=== PATIENT | female | born 1945 | race Caucasian/White ===

== ENCOUNTER → 2016-10-25 | Outpatient (CLI) | payer OTHER ==
--- NOTE | 2016-10-25 11:37 | REPMRS ---
Patient History The patient states she had a clinical breast exam in 03/2016. Patient is postmenopausal and had first child at age 34. Family history of breast cancer in 2 maternal aunts at age 50 or over and endometrial cancer in maternal aunt at age 50 or over. Digital Woman Screen Mammo: October 25, 2016 - Exam #: [id number] Bilateral CC and MLO view(s) were taken. Technologist: Esther Harding Technologist Prior study comparison: May 01, 2014, bilateral bilat screen digital mammo, performed at [facility] ([facility]). April 30, 2013, bilateral bilat screen digital mammo, performed at [facility] ([facility]). FINDINGS: There are scattered fibroglandular densities. There has been no change in the appearance of the mammogram from the prior studies in 2013 and 2012. The minor tissue asymmetry in the UOQ right breast completely resolved from 05/02/15 outside mammo and subsequent ultrasound at [facility]. There is a mild amount of residual fibroglandular tissue which is fairly symmetric. There is no interval development of dominant mass, architectural distortion, or clustered microcalcification suggestive of malignancy. No significant changes when compared with prior studies. ASSESSMENT: BI-RADS/ACR category 1 mammogram. Negative. Recommendation Routine screening mammogram in 1 year (for women over age 40). This mammogram was interpreted with the aid of an FDA-approved computer-aided dectection system. A. Negative x-ray reports should not delay biopsy if a dominant or clinically suspicious mass is present. B. Four to eight percent of cancers are not identified by mammography. C. Adenosis and dense breast may obscure an underlying neoplasm. Electronically Signed By: Dajuan Keys MD 10/25/16 0356
== END ==
LOC: M WHC 10:35
PROVIDERS: ATTEND Internal Medicine
DX: Z12.31 Encounter for screening mammogram for malignant neoplasm of breast (principal); Z78.0 Asymptomatic menopausal state

== ENCOUNTER 2017-10-24 08:34 | Day surgery (SDC) | payer OTHER ==
[~2017-10-24 08:34] MED LIST: LIDOCAINE 2% INJ 100 MG/5 ML SDV (FOR ANES.) As Ordered; PROPOFOL 200 MG/20 ML VIAL As Ordered
[2017-10-24] MEDS ORDERED: NS 1,000 ML IV (08:45)
== END 2017-10-24 10:32 | disposition home or self-care (01) ==
LOC: M OPP 08:34
DX: Z12.11 Encounter for screening for malignant neoplasm of colon (principal); Z86.010 Personal history of colon polyps; D12.2 Benign neoplasm of ascending colon; K57.30 Diverticulosis of large intestine without perforation or abscess without bleeding; K64.0 First degree hemorrhoids; I10 Essential (primary) hypertension; E78.5 Hyperlipidemia, unspecified; E11.9 Type 2 diabetes mellitus without complications; E03.9 Hypothyroidism, unspecified; K57.32 Diverticulitis of large intestine without perforation or abscess without bleeding; M19.90 Unspecified osteoarthritis, unspecified site; Z78.0 Asymptomatic menopausal state; Z80.0 Family history of malignant neoplasm of digestive organs; Z79.82 Long term (current) use of aspirin; Z79.899 Other long term (current) drug therapy; Z79.84 Long term (current) use of oral hypoglycemic drugs; Z83.71 Family history of colonic polyps
CPT/HCPCS: 45385

== ENCOUNTER → 2017-12-26 | Outpatient (CLI) | payer OTHER | LOC: M WHC 12:44 | DX: M85.80 Other specified disorders of bone density and structure, unspecified site (principal) | CPT/HCPCS: 77067 ==

== ENCOUNTER → 2019-04-13 | Outpatient (CLI) | payer OTHER ==
[~2019-04-13] MED LIST changes: +ASPI81TA26 PO; +ATOR1TAB21 PO; +CALTTAB5 PO; +CENTTAB PO; +FISH100049 PO; +LEVO88TA3 PO; -LIDOCAINE 2% INJ 100 MG/5 ML SDV (FOR ANES.) As Ordered; +LISI10TA15 PO; +METF500T13 PO; -PROPOFOL 200 MG/20 ML VIAL As Ordered; +VITA100067 PO
--- NOTE | 2019-04-13 09:54 | REPMRS ---
Patient History The patient states she had a clinical breast exam in 04/2019. Patient is postmenopausal and had first child at age 34. Family history of breast cancer at age 50 or over in maternal aunt, breast cancer at age 50 or over in maternal aunt, endometrial cancer at age 50 or over in maternal aunt. No Hormone Replacement Therapy 3D TOMOSYNTHESIS WAS PERFORMED. The [facility] lifetime risk for breast cancer is 7.8%. Digital Woman Screen Mammo: April 13, 2019 - Exam #: [id number] Bilateral CC and MLO view(s) were taken. Technologist: Argenis Mckeon, Technologist Prior study comparison: December 26, 2017, digital woman screen mammo performed at [facility]. October 25, 2016, digital woman screen mammo performed at [facility] [employer] [facility] [employer] [facility]. FINDINGS: There are scattered fibroglandular densities. There has been no change in the appearance of the mammogram from the prior studies. There is a mild amount of residual fibroglandular tissue which is fairly symmetric. There is no interval development of dominant mass, architectural distortion, or clustered microcalcification suggestive of malignancy. Assessment: BI-RADS/ACR category 1 mammogram. Negative Mammogram. Recommendation Routine screening mammogram in 1 year (for women over age 40). This mammogram was interpreted with the aid of an FDA-approved computer-aided dectection system. Electronically Signed By: Hammad Hook MD 04/13/19 0953
== END ==
LOC: M WHC 08:54
PROVIDERS: ATTEND Internal Medicine
DX: Z12.31 Encounter for screening mammogram for malignant neoplasm of breast (principal)

== ENCOUNTER → 2020-04-18 | Outpatient (CLI) | payer OTHER ==
--- NOTE | 2020-05-06 08:30 | REPMRS ---
Patient History The patient states she has not had a clinical breast exam in over a year. Patient is postmenopausal and had first child at age 34. Family history of breast cancer at age 50 or over in maternal aunt, breast cancer at age 50 or over in maternal aunt, endometrial cancer at age 50 or over in maternal aunt. No Hormone Replacement Therapy Digital Woman Screen Mammo: April 18, 2020 - Exam #: [id number] Bilateral CC and MLO view(s) were taken. Technologist: Jennifer Beck, Technologist Prior study comparison: April 13, 2019, [facility] December 26, 2017, digital woman screen mammo[facility]. October 25, 2016, digital woman screen mammo, performed at [facility]. FINDINGS: There are scattered fibroglandular densities. The Vol[employer] volumetric breast density category is:B. There has been no change in the appearance of the mammogram from the prior studies. There is a mild amount of scattered fibroglandular density which is fairly symmetric. There is no interval development of dominant mass, architectural distortion, or grouped microcalcification suggestive of malignancy. 3-D tomosynthesis shows no additional findings. Assessment: BI-RADS/ACR category 1 mammogram. Negative Mammogram. Recommendation Routine screening mammogram of both breasts in 1 year (for women over age 40). This patient's Lifetime Breast Cancer Risk is estimated at 7.3 %. This mammogram was interpreted with the aid of an FDA-approved computer-aided dectection system. Electronically Signed By: Kelechi Hawk MD 05/06/20 0829
--- NOTE | 2020-05-27 15:40 | DEXA ---
AP SPINE L1 - L4 1.065 -1.0 0.8 LT FEMUR TOTAL 0.857 -1.2 0.5 LT NECK 0.831 -1.5 0.4 RT FEMUR TOTAL 0.847 -1.3 0.4 RT NECK 0.861 -1.3 0.6 TOTAL BODY TOTAL OTHER COMMENTS: There is low bone density of the spine and hips. The decreased density of the spine does represent significant change. The decreased density of the left hip does not represent significant change. The decreased density of the right hip does represent a significant change. The density of the spine has decreased 1.8% since the initial exam on 05/03/2001. The decreased 3.5% since most recent exam on 12/26/2017. The density of the left hip has decreased 9.6% since the initial exam on 05/03/2001. The density of the left hip has decreased 1.0% since the most recent exam on 12/26/2017. The density of the right hip has decreased 14% since the initial exam on 05/03/2001. The density of the right hip has decreased 2.8% since most recent exam on 12/26/2017. FOLLOW-UP: Recommendation for the next bone density exam: 2 years. ANJELICA
== END ==
LOC: M WHC 13:17
PROVIDERS: ATTEND Internal Medicine
DX: Z12.31 Encounter for screening mammogram for malignant neoplasm of breast (principal); Z78.0 Asymptomatic menopausal state; M85.851 Other specified disorders of bone density and structure, right thigh; M85.852 Other specified disorders of bone density and structure, left thigh; M85.88 Other specified disorders of bone density and structure, other site

== ENCOUNTER → 2021-05-22 | Outpatient (CLI) | payer MEDICARE, OTHER ==
[~2021-05-22] MED LIST changes: -LISI10TA15 PO; +LISI10TA24 PO; +METF-838 PO
== END ==
LOC: M WHC 07:45
PROVIDERS: ATTEND Internal Medicine
DX: Z12.31 Encounter for screening mammogram for malignant neoplasm of breast (principal); Z80.3 Family history of malignant neoplasm of breast

== ENCOUNTER → 2021-06-19 | Outpatient (CLI) | payer MEDICARE, OTHER ==
[~2021-06-19] MED LIST changes: +LISI10TA15 PO; -LISI10TA24 PO
== END ==
LOC: M LABSMTC 10:57
PROVIDERS: ATTEND Anesthesiology
DX: Z01.812 Encounter for preprocedural laboratory examination (principal); Z20.822 Contact with and (suspected) exposure to COVID-19

== ENCOUNTER 2021-06-24 11:34 | Day surgery (SDC) | payer MEDICARE, OTHER ==
[~2021-06-24] VITALS: Ht 167.6 cm; Wt 61.2 kg
[~2021-06-24 11:34] MED LIST changes: +NS 1,000 ML IV ONE
--- OUTSIDE RECORDS SUMMARY | 2021-06-24 11:44 | CCD | Continuity of Care Document ---
Author Melonie Galaviz [facility] Organization Unknown Address [address] [place] [address] Phone [phone] Care Team Providers Care Elementary Art Teacher Name Role Phone Mary Salas MD [facility] [phone] Problems Active Problems Provider Date Type 2 diabetes mellitus AJ Gonsales Onset: 12/11/19 21 Essential hypertension AJ Gonsales Onset: 12/10/2020 Pure hypercholesterolemia AJ Gonsales Onset: 021 Social History Type Date Description Comments Sex Unknown ETOH Use Denies alcohol use Tobacco Use Start: Unknown Denies Smoking Allergies, Adverse Reactions, Alerts Description No Known Drug Allergies Medications Active Medications SIG Qnty Indications Ordering Provide r Date Mobic 15mg Tablets 1 by mouth after meals every day 60tabs M75.41 DMarley Wilburn MD 021 Cephalexin 500mg Capsules Take One Capsule By Mouth Four Times A Day Unknown Metformin HCL 500mg Tablets Unknown Caltrate 600+D3 [id number] Tab lets 1 by mouth twice a day Unknown Centrum Adults Tablets Unknown D3-1000 25mcg (1000 Ut) Capsules 1 by mouth every day Unknown Fish Oil 1000mg Capsules DR Unknown Atorvastatin Calcium 40mg Tablets Unknown Immunizations Description No Information Available Vital Signs Date Vital Result Comment 12/10/2020 2:55pm Body Temperature 97.3 F Height 66 inches 5'6" Weight 136.00 lb BMI (Body Mass Index) 21.9 kg/m2 Results Description No Information Available Procedures Date Code Description Status 05/07/2021 13941 Therapeutic Procedure, Each 15 M inutes Completed 05/05/2021 58479 Therapeutic Procedure, Each 15 M inutes Completed 04/30/2021 83549 Therapeutic Procedure, Each 15 M inutes Completed 04/28/2021 23879 Therapeutic Procedure, Each 15 M inutes Completed 04/23/2021 68184 Therapeutic Procedure, Each 15 M inutes Completed 04/20/2021 25221 Therapeutic Procedure, Each 15 M inutes Completed 04/17/2021 63026 Therapeutic Procedure, Each 15 M inutes Completed 04/13/2021 80303 Therapeutic Procedure, Each 15 M inutes Completed 04/10/2021 09147 Therapeutic Procedure, Each 15 M inutes Completed 04/06/2021 31922 Therapeutic Procedure, Each 15 M inutes Completed 04/01/2021 35343 Therapeutic Procedure, Each 15 M inutes Completed 03/30/2021 01936 Therapeutic Procedure, Each 15 M inutes Completed 03/25/2021 68368 Therapeutic Procedure, Each 15 M inutes Completed 03/23/2021 32146 Therapeutic Procedure, Each 15 M inutes Completed 03/18/2021 47604 Therapeutic Procedure, Each 15 M inutes Completed 03/16/2021 26478 Therapeutic Procedure, Each 15 M inutes Completed 02/25/2021 16902 Office/Outpatient Established Lo w MDM 20-29 Min Completed 02/25/2021 27686 Therapeutic Procedure, Each 15 M inutes Completed 02/25/2021 13554 Therapeutic Procedure, Each 15 M inutes Completed 02/18/2021 75778 Therapeutic Procedure, Each 15 M inutes Completed 02/18/2021 07001 Therapeutic Procedure, Each 15 M inutes Completed 02/11/2021 05281 Therapeutic Procedure, Each 15 M inutes Completed 02/11/2021 69757 Therapeutic Procedure, Each 15 M inutes Completed 02/06/2021 09849 Therapeutic Procedure, Each 15 M inutes Completed 02/06/2021 22406 Hot Or Cold Packs Completed 01/30/2021 15715 Therapeutic Procedure, Each 15 M inutes Completed 01/30/2021 54368 Therapeutic Procedure, Each 15 M inutes Completed 01/28/2021 75538 Therapeutic Procedure, Each 15 M inutes Completed 01/28/2021 31177 Therapeutic Procedure, Each 15 M inutes Completed 01/26/2021 27872 Office/Outpatient Established Lo w MDM 20-29 Min Completed 01/23/2021 41872 Therapeutic Procedure, Each 15 M inutes Completed 01/23/2021 05000 Therapeutic Procedure, Each 15 M inutes Completed 01/20/2021 50776 Therapeutic Procedure, Each 15 M inutes Completed 01/20/2021 27874 Therapeutic Procedure, Each 15 M inutes Completed 01/14/2021 17782 Therapeutic Procedure, Each 15 M inutes Completed 01/14/2021 13434 Therapeutic Procedure, Each 15 M inutes Completed 01/09/2021 71428 Therapeutic Procedure, Each 15 M inutes Completed 01/09/2021 60879 Therapeutic Procedure, Each 15 M inutes Completed 01/07/2021 85406 Therapeutic Procedure, Each 15 M inutes Completed 01/07/2021 56974 Therapeutic Procedure, Each 15 M inutes Completed 01/02/2021 33075 Physical Therapy Eval - Low Comp lexity Completed 12/10/2020 23660 Office/Outpatient New Low MDM 30 -44 Minutes Completed 12/10/2020 87446 X-Ray Humerus Two Views Complete d Medical Devices Description No Information Available Encounters Type Date Location Provider Dx Diagnosis Office Visit 02/25/2021 3:30p [place] M75.41 Impingement syndrome of right shoulder Office Visit 01/26/2021 3:30p JA Dickson M75.41 Impingement syndrome of right shoulder Office Visit 12/10/2020 2:30p [place] M75.41 Impingement syndrome of right shoulder Assessments Date Code Description Provider 05/07/2021 M75.41 Impingement syndrome of right sh ireneer Chelle Ritchie, CHUCK BONER 05/05/2021 M75.41 Impingement syndrome of right sh lali Martinsbrian Ritchie, CHUCK BONER 04/30/2021 M75.41 Impingement syndrome of right sh lali Martinsbrian Ritchie, CHUCK BONER 04/28/2021 M75.41 Impingement syndrome of right sh lali Martinsbrian Ritchie, CHUCK BONER 04/23/2021 M75.41 Impingement syndrome of right sh ireneer Chelle Martinsbrian Ritchie, CHUCK BONER 04/20/2021 M75.41 Impingement syndrome of right sh billlder Chelle Ritchie, CHUCK BONER 04/17/2021 M75.41 Impingement syndrome of right sh ireneer Davida Barrios, MSPT 04/13/2021 M75.41 Impingement syndrome of right sh billlder Chelle Ritchie, CHUCK BONER 04/10/2021 M75.41 Impingement syndrome of right sh billlder Davida Barrios, MSPT 04/06/2021 M75.41 Impingement syndrome of right sh billlder Chelle Ritchie, CHUCK BONER 04/01/2021 M75.41 Impingement syndrome of right sh billlder Alfonzo Raolouisenena, CHUCK BONER 03/30/2021 M75.41 Impingement syndrome of right sh billlder Chelle Ritchie, CHUCK BONER 03/25/2021 M75.41 Impingement syndrome of right sh ould Danae Scee P.T.A. 03/23/2021 M75.41 Impingement syndrome of right sh ould Danae Scee P.T.A. 03/18/2021 M75.41 Impingement syndrome of right sh [facility] Danae Scee P.T.A. 03/16/2021 M75.41 Impingement syndrome of right sh irene Davida Barrios, MSPT 02/25/2021 M75.41 Impingement syndrome of right sh biller Davida Barrios, MSPT 02/25/2021 M75.41 Impingement syndrome of right sh [facility] Nilesh Contreras, PA 02/18/2021 M75.41 Impingement syndrome of right sh billlder Chelle Ritchie, CHUCK BONER 02/11/2021 M75.41 Impingement syndrome of right sh lali Barrios, MSPT 02/06/2021 M75.41 Impingement syndrome of right sh lali Sullivanaj, MSPT 01/30/2021 M75.41 Impingement syndrome of right sh lali Ritchie, CHUCK BONER 01/28/2021 M75.41 Impingement syndrome of right sh lali Barrios, MSPT 01/26/2021 M75.41 Impingement syndrome of right sh billlder Nilesh CadeMarley Contreras PA 01/23/2021 M75.41 Impingement syndrome of right sh oulder Charyrie Ortolano, CHUCK BONER 01/20/2021 M75.41 Impingement syndrome of right sh oulder Danamarie Ortolano, CHUCK BONER 01/14/2021 M75.41 Impingement syndrome of right sh oulder Danamarie Ortolano, CHUCK BONER 01/09/2021 M75.41 Impingement syndrome of right sh oulder Danamarie Ortolano, CHUCK BONER 01/07/2021 M75.41 Impingement syndrome of right sh billlder Chelle Ritchie, CHUCK BONER 01/02/2021 M75.41 Impingement syndrome of right sh billlder Davida Barrios, MSPT 12/10/2020 M75.41 Impingement syndrome of right sh lali AJ Gonsales Plan of Treatment Future Appointment(s):* 05/13/2021 9:30 am - Danae Sesay P.T.A. at Physical Therapy * 05/15/2021 9:00 am - EDGAR Clayton at Physical Therapy Functional Status Description No Information Available Mental Status Description No Information Available Referrals Refer to Dr Reason for Referral Status Appt Date Andrae Wilburn MD PT ALLOWED EVAL THEN NEEDS A MEH (([phone]) TO PT DEPT. NT Closed [address] [place] [phone] [phone] Andrae Wilburn MD PT PER DELVIN AT [facility] APPROVAL F OR 12 VISITS ON RT SHOULDER TO PT DEPT. NT Created [address] [place] [address] [phone] Andrae Wilburn MD PT BASED ON MED. [facility] TO PT DEPT. NT C reated [address] [place] [address], [address] [address] [phone]
--- OUTSIDE RECORDS SUMMARY | 2021-06-24 11:44 | CCD | Continuity of Care Document ---
Author Melonie Galaviz [facility] Organization Unknown Address [address] [place] [address] Phone [phone] Care Team Providers Care Vascular Specialists Name Role Phone Mary Salas MD [facility] [phone] Problems Active Problems Provider Date Type 2 [...] Metformin HCL 500mg Tablets Unknown Caltrate 600+D3 [id number] Tab lets 1 by mouth twice a [...] Available Procedures Date Code Description Status 05/07/2021 05089 Therapeutic Procedure, Each 15 M inutes Completed 05/05/2021 18685 Therapeutic Procedure, Each 15 M inutes Completed 04/30/2021 40182 Therapeutic Procedure, Each 15 M inutes Completed 04/28/2021 17404 Therapeutic Procedure, Each 15 M inutes Completed 04/23/2021 92607 Therapeutic Procedure, Each 15 M inutes Completed 04/20/2021 41223 Therapeutic Procedure, Each 15 M inutes Completed 04/17/2021 37513 Therapeutic Procedure, Each 15 M inutes Completed 04/13/2021 71295 Therapeutic Procedure, Each 15 M inutes Completed 04/10/2021 62888 Therapeutic Procedure, Each 15 M inutes Completed 04/06/2021 13201 Therapeutic Procedure, Each 15 M inutes Completed 04/01/2021 54834 Therapeutic Procedure, Each 15 M inutes Completed 03/30/2021 23616 Therapeutic Procedure, Each 15 M inutes Completed 03/25/2021 11433 Therapeutic Procedure, Each 15 M inutes Completed 03/23/2021 41939 Therapeutic Procedure, Each 15 M inutes Completed 03/18/2021 86116 Therapeutic Procedure, Each 15 M inutes Completed 03/16/2021 55560 Therapeutic Procedure, Each 15 M inutes Completed 02/25/2021 33853 Office/Outpatient Established Lo w MDM 20-29 Min Completed 02/25/2021 97907 Therapeutic Procedure, Each 15 M inutes Completed 02/25/2021 48920 Therapeutic Procedure, Each 15 M inutes Completed 02/18/2021 47550 Therapeutic Procedure, Each 15 M inutes Completed 02/18/2021 74250 Therapeutic Procedure, Each 15 M inutes Completed 02/11/2021 44402 Therapeutic Procedure, Each 15 M inutes Completed 02/11/2021 65430 Therapeutic Procedure, Each 15 M inutes Completed 02/06/2021 68082 Therapeutic Procedure, Each 15 M inutes Completed 02/06/2021 64183 Hot Or Cold Packs Completed 01/30/2021 96124 Therapeutic Procedure, Each 15 M inutes Completed 01/30/2021 17532 Therapeutic Procedure, Each 15 M inutes Completed 01/28/2021 81996 Therapeutic Procedure, Each 15 M inutes Completed 01/28/2021 12635 Therapeutic Procedure, Each 15 M inutes Completed 01/26/2021 23803 Office/Outpatient Established Lo w MDM 20-29 Min Completed 01/23/2021 96594 Therapeutic Procedure, Each 15 M inutes Completed 01/23/2021 32496 Therapeutic Procedure, Each 15 M inutes Completed 01/20/2021 32381 Therapeutic Procedure, Each 15 M inutes Completed 01/20/2021 16644 Therapeutic Procedure, Each 15 M inutes Completed 01/14/2021 30921 Therapeutic Procedure, Each 15 M inutes Completed 01/14/2021 56777 Therapeutic Procedure, Each 15 M inutes Completed 01/09/2021 47634 Therapeutic Procedure, Each 15 M inutes Completed 01/09/2021 32739 Therapeutic Procedure, Each 15 M inutes Completed 01/07/2021 89126 Therapeutic Procedure, Each 15 M inutes Completed 01/07/2021 18369 Therapeutic Procedure, Each 15 M inutes Completed 01/02/2021 22751 Physical Therapy Eval - Low Comp lexity Completed 12/10/2020 48257 Office/Outpatient New Low MDM 30 -44 Minutes Completed 12/10/2020 20828 X-Ray Humerus Two Views Complete d Medical Devices Description No Information Available Encounters Type Date Location Provider Dx Diagnosis Office Visit 02/25/2021 3:30p [place] M75.41 Impingement syndrome of right shoulder Office Visit 01/26/2021 3:30p AJ Dickson M75.41 Impingement syndrome of right shoulder Office Visit 12/10/2020 2:30p [place] M75.41 Impingement syndrome of right shoulder Assessments Date Code Description Provider 05/07/2021 M75.41 Impingement syndrome of right sh ireneer Chelle Ritchie, [employer] 05/05/2021 M75.41 Impingement syndrome of right sh lali Martinsbrian Ritchie, [employer] 04/30/2021 M75.41 Impingement syndrome of right sh lali Martinsbrian Ritchie, [employer]OL 04/28/2021 M75.41 Impingement syndrome of right sh lali Martinsbrian Ritchie, [employer]OL 04/23/2021 M75.41 Impingement syndrome of right sh ireneer Chelle Martinsbrian Ritchie, [employer]OL 04/20/2021 M75.41 Impingement syndrome of right sh billlder Chelle Ritchie, [employer]OL 04/17/2021 M75.41 Impingement syndrome of right sh ireneer Davida Barrios, MSPT 04/13/2021 M75.41 Impingement syndrome of right sh billlder Chelle Ritchie, [employer]OL 04/10/2021 M75.41 Impingement syndrome of right sh billlder Davida Barrios, MSPT 04/06/2021 M75.41 Impingement syndrome of right sh billlder Chelle Ritchie, [employer] 04/01/2021 M75.41 Impingement syndrome of right sh billlder Alfonzo Raolouisenena, [employer] 03/30/2021 M75.41 Impingement syndrome of right sh billlder Chelle Ritchie, [employer]OL 03/25/2021 M75.41 Impingement syndrome of right sh ould Danae Scee P.T.A. 03/23/2021 M75.41 Impingement syndrome of right sh ould Danae Scee P.T.A. 03/18/2021 M75.41 Impingement syndrome of right sh [facility] Danae Scee P.T.A. 03/16/2021 M75.41 Impingement syndrome of right sh irene Davida Barrios, MSPT 02/25/2021 M75.41 Impingement syndrome of right sh biller Davida Barrios, MSPT 02/25/2021 M75.41 Impingement syndrome of right sh [facility] Nilesh Contreras, PA 02/18/2021 M75.41 Impingement syndrome of right sh billlder Chelle Ritchie, [employer]OL 02/11/2021 M75.41 Impingement syndrome of right sh lali Barrios, MSPT 02/06/2021 M75.41 Impingement syndrome of right sh lali Sullivanaj, MSPT 01/30/2021 M75.41 Impingement syndrome of right sh lali Ritchie, [employer]OL 01/28/2021 M75.41 Impingement syndrome of right sh lali Barrios, MSPT 01/26/2021 M75.41 Impingement syndrome of right sh billlder Nilesh CadeMarley Contreras PA 01/23/2021 M75.41 Impingement syndrome of right sh oulder Charyrie Ortolano, [employer]OL 01/20/2021 M75.41 Impingement syndrome of right sh oulder Danamarie Ortolano, [employer]OL 01/14/2021 M75.41 Impingement syndrome of right sh oulder Danamarie Ortolano, [employer]ER TOOL 01/09/2021 M75.41 Impingement syndrome of right sh oulder Danamarie Ortolano, [employer]ER TOOL 01/07/2021 M75.41 Impingement syndrome of right sh billlder Chelle Ritchie, [employer] TOOL 01/02/2021 M75.41 Impingement syndrome of right sh [...] MD PT ALLOWED EVAL THEN NEEDS A GAH (([phone]) TO PT DEPT. NT Closed [address] [place] [phone] Andrae Wilburn MD PT PER DELVIN AT [facility] APPROVAL F OR 12 VISITS ON RT SHOULDER TO PT DEPT. NT Created [address] [place] [phone] Andrae Wilburn MD PT BASED ON MED. [facility] TO PT DEPT. NT C reated [address] [place] [address], [address] [address] [phone]
--- OUTSIDE RECORDS SUMMARY | 2021-06-24 11:44 | CCD | Continuity of Care Document ---
Author Melonie Galaviz [facility] Organization Unknown Address [address] [place] [phone] Phone [phone] Care Team Providers Care Flexible Babysitter Name Role Phone Mary Salas MD [facility] [phone] Problems Active Problems Provider Date Type 2 diabetes mellitus ISMA Gonsales Onset: 12/11/19 21 Essential hypertension ISMA Gonsales Onset: 12/10/2020 Pure hypercholesterolemia ISMA Gonsales Onset: 021 Social History Type Date [...] Metformin HCL 500mg Tablets Unknown Caltrate 600+D3 [id number] Tab lets 1 by mouth twice a [...] Information Available Procedures Date Code Description Status 04/28/2021 43429 Therapeutic Procedure, Each 15 M inutes Completed 04/23/2021 39412 Therapeutic Procedure, Each 15 M inutes Completed 04/20/2021 78664 Therapeutic Procedure, Each 15 M inutes Completed 04/17/2021 28073 Therapeutic Procedure, Each 15 M inutes Completed 04/13/2021 27405 Therapeutic Procedure, Each 15 M inutes Completed 04/10/2021 45422 Therapeutic Procedure, Each 15 M inutes Completed 04/06/2021 97233 Therapeutic Procedure, Each 15 M inutes Completed 04/01/2021 76383 Therapeutic Procedure, Each 15 M inutes Completed 03/30/2021 13049 Therapeutic Procedure, Each 15 M inutes Completed 03/25/2021 61839 Therapeutic Procedure, Each 15 M inutes Completed 03/23/2021 29225 Therapeutic Procedure, Each 15 M inutes Completed 03/18/2021 89734 Therapeutic Procedure, Each 15 M inutes Completed 03/16/2021 76711 Therapeutic Procedure, Each 15 M inutes Completed 02/25/2021 99066 Office/Outpatient Established Lo w MDM 20-29 Min Completed 02/25/2021 87955 Therapeutic Procedure, Each 15 M inutes Completed 02/25/2021 61880 Therapeutic Procedure, Each 15 M inutes Completed 02/18/2021 48515 Therapeutic Procedure, Each 15 M inutes Completed 02/18/2021 93552 Therapeutic Procedure, Each 15 M inutes Completed 02/11/2021 94299 Therapeutic Procedure, Each 15 M inutes Completed 02/11/2021 19310 Therapeutic Procedure, Each 15 M inutes Completed 02/06/2021 92907 Therapeutic Procedure, Each 15 M inutes Completed 02/06/2021 85395 Hot Or Cold Packs Completed 01/30/2021 62900 Therapeutic Procedure, Each 15 M inutes Completed 01/30/2021 40916 Therapeutic Procedure, Each 15 M inutes Completed 01/28/2021 92135 Therapeutic Procedure, Each 15 M inutes Completed 01/28/2021 15211 Therapeutic Procedure, Each 15 M inutes Completed 01/26/2021 29813 Office/Outpatient Established Lo w MDM 20-29 Min Completed 01/23/2021 77527 Therapeutic Procedure, Each 15 M inutes Completed 01/23/2021 68418 Therapeutic Procedure, Each 15 M inutes Completed 01/20/2021 56538 Therapeutic Procedure, Each 15 M inutes Completed 01/20/2021 66196 Therapeutic Procedure, Each 15 M inutes Completed 01/14/2021 74144 Therapeutic Procedure, Each 15 M inutes Completed 01/14/2021 47288 Therapeutic Procedure, Each 15 M inutes Completed 01/09/2021 28068 Therapeutic Procedure, Each 15 M inutes Completed 01/09/2021 26951 Therapeutic Procedure, Each 15 M inutes Completed 01/07/2021 17981 Therapeutic Procedure, Each 15 M inutes Completed 01/07/2021 19302 Therapeutic Procedure, Each 15 M inutes Completed 01/02/2021 42147 Physical Therapy Eval - Low Comp lexity Completed 12/10/2020 46411 Office/Outpatient New Low MDM 30 -44 Minutes Completed 12/10/2020 41487 X-Ray Humerus Two Views Complete d Medical Devices Description No Information Available Encounters Type Date Location Provider Dx Diagnosis Office Visit 02/25/2021 3[facility] M75.41 Impingement syndrome of right shoulder Office Visit 01/26/2021 3:30p ISMA Dickson M75.41 Impingement syndrome of right shoulder Office Visit 12/10/2020 2:30p ISMA Dickson M75.41 Impingement syndrome of right shoulder Assessments Date Code Description Provider 04/28/2021 M75.41 Impingement syndrome of right sh lali Martinsbrian Ritchie, MEDICAL LAB TECHNOLOGIST 04/23/2021 M75.41 Impingement syndrome of right sh lali Martinsbrian Ritchie, MEDICAL LAB TECHNOLOGIST 04/20/2021 M75.41 Impingement syndrome of right sh lali Martinsbrian Ritchie, MEDICAL LAB TECHNOLOGIST 04/17/2021 M75.41 Impingement syndrome of right sh billdianne Davida Barrios, MSPT 04/13/2021 M75.41 Impingement syndrome of right sh lali Martinsbrian Ritchie, MEDICAL LAB TECHNOLOGIST 04/10/2021 M75.41 Impingement syndrome of right sh lali Davida Barrios, MSPT 04/06/2021 M75.41 Impingement syndrome of right sh lali Martinsbrian Ritchie, MEDICAL LAB TECHNOLOGIST 04/01/2021 M75.41 Impingement syndrome of right sh billlder Charyrie Ortolano, MEDICAL LAB TECHNOLOGIST 03/30/2021 M75.41 Impingement syndrome of right sh ireneer Chelle Ritchie, MEDICAL LAB TECHNOLOGIST 03/25/2021 M75.41 Impingement syndrome of right sh oulder Danae Scee P.T.A. 03/23/2021 M75.41 Impingement syndrome of right sh oulder Danae Scee P.T.A. 03/18/2021 M75.41 Impingement syndrome of right sh oulder Danae Scee P.T.A. 03/16/2021 M75.41 Impingement syndrome of right sh ireneer Davida Barrios, MSPT 02/25/2021 M75.41 Impingement syndrome of right sh ireneer Davida Barrios, MSPT 02/25/2021 M75.41 Impingement syndrome of right sh billlder Nilesh Contreras, PA 02/18/2021 M75.41 Impingement syndrome of right sh ireneer Chelle Ritchie, MEDICAL LAB TECHNOLOGIST 02/11/2021 M75.41 Impingement syndrome of right sh lali Barrios, MSPT 02/06/2021 M75.41 Impingement syndrome of right sh lali Barrios, MSPT 01/30/2021 M75.41 Impingement syndrome of right sh lali Ritchie, MEDICAL LAB TECHNOLOGIST 01/28/2021 M75.41 Impingement syndrome of right sh lali Barrios, MSPT 01/26/2021 M75.41 Impingement syndrome of right sh oulder Nilesh Contreras, PA 01/23/2021 M75.41 Impingement syndrome of right sh oulder Danamarie Ortolano, MEDICAL LAB TECHNOLOGIST 01/20/2021 M75.41 Impingement syndrome of right sh oulder Danamarie Ortolano, MEDICAL LAB TECHNOLOGIST 01/14/2021 M75.41 Impingement syndrome of right sh oulder Danamarie Ortolano, MEDICAL LAB TECHNOLOGIST 01/09/2021 M75.41 Impingement syndrome of right sh oulder Danamarie Ortolano, MEDICAL LAB TECHNOLOGIST 01/07/2021 M75.41 Impingement syndrome of right sh ireneer Chelle Ritchie, MEDICAL LAB TECHNOLOGIST 01/02/2021 M75.41 Impingement syndrome of right sh ireneer Davida Barrios, MSPT 12/10/2020 M75.41 Impingement syndrome of right sh billmarlener ISMA Gonsales Plan of Treatment Future Appointment(s):* 05/07/2021 9:30 am - Chelle Ritchie, MEDICAL LAB TECHNOLOGIST at Physical Therapy * 05/05/2021 9:30 am - Chelle Ritchie, MEDICAL LAB TECHNOLOGIST at Physical Therapy Functional Status Description No Information Available Mental Status Description No Information Available Referrals Refer to Dr Reason for Referral Status Appt Date Andrae Wilburn MD PT ALLOWED EVAL THEN NEEDS A [facility] (([phone]) TO PT DEPT. NT Closed [address] [place] [phone] Andrae Wilburn MD PT PER DELVIN AT [facility] APPROVAL F OR 12 VISITS ON RT SHOULDER TO PT DEPT. NT Created [address] [place] [phone] Andrae Wilburn MD PT BASED ON MED. [facility] TO PT DEPT. NT C reated [address] [place] [phone]
--- OUTSIDE RECORDS SUMMARY | 2021-06-24 11:44 | CCD | Continuity of Care Document ---
Author Melonie Galaviz [facility] Organization Unknown Address [address] [place] [phone] Phone [phone] Care Team Providers Care Movable Bulkhead Installer Name Role Phone Mary Salas MD [facility] [phone] Problems Active Problems Provider Date Type 2 [...] Metformin HCL 500mg Tablets Unknown Caltrate 600+D3 [id number] Tab lets 1 by mouth twice a [...] Information Available Procedures Date Code Description Status 05/05/2021 11385 Therapeutic Procedure, Each 15 M inutes Completed 04/30/2021 52882 Therapeutic Procedure, Each 15 M inutes Completed 04/28/2021 90770 Therapeutic Procedure, Each 15 M inutes Completed 04/23/2021 79638 Therapeutic Procedure, Each 15 M inutes Completed 04/20/2021 96519 Therapeutic Procedure, Each 15 M inutes Completed 04/17/2021 62718 Therapeutic Procedure, Each 15 M inutes Completed 04/13/2021 19570 Therapeutic Procedure, Each 15 M inutes Completed 04/10/2021 06922 Therapeutic Procedure, Each 15 M inutes Completed 04/06/2021 43947 Therapeutic Procedure, Each 15 M inutes Completed 04/01/2021 47861 Therapeutic Procedure, Each 15 M inutes Completed 03/30/2021 36949 Therapeutic Procedure, Each 15 M inutes Completed 03/25/2021 73589 Therapeutic Procedure, Each 15 M inutes Completed 03/23/2021 61431 Therapeutic Procedure, Each 15 M inutes Completed 03/18/2021 50732 Therapeutic Procedure, Each 15 M inutes Completed 03/16/2021 01300 Therapeutic Procedure, Each 15 M inutes Completed 02/25/2021 89970 Office/Outpatient Established Lo w MDM 20-29 Min Completed 02/25/2021 09158 Therapeutic Procedure, Each 15 M inutes Completed 02/25/2021 98398 Therapeutic Procedure, Each 15 M inutes Completed 02/18/2021 42257 Therapeutic Procedure, Each 15 M inutes Completed 02/18/2021 51867 Therapeutic Procedure, Each 15 M inutes Completed 02/11/2021 83245 Therapeutic Procedure, Each 15 M inutes Completed 02/11/2021 27479 Therapeutic Procedure, Each 15 M inutes Completed 02/06/2021 59806 Therapeutic Procedure, Each 15 M inutes Completed 02/06/2021 58503 Hot Or Cold Packs Completed 01/30/2021 32042 Therapeutic Procedure, Each 15 M inutes Completed 01/30/2021 82544 Therapeutic Procedure, Each 15 M inutes Completed 01/28/2021 15396 Therapeutic Procedure, Each 15 M inutes Completed 01/28/2021 03900 Therapeutic Procedure, Each 15 M inutes Completed 01/26/2021 65958 Office/Outpatient Established Lo w MDM 20-29 Min Completed 01/23/2021 86204 Therapeutic Procedure, Each 15 M inutes Completed 01/23/2021 12523 Therapeutic Procedure, Each 15 M inutes Completed 01/20/2021 91179 Therapeutic Procedure, Each 15 M inutes Completed 01/20/2021 31021 Therapeutic Procedure, Each 15 M inutes Completed 01/14/2021 52879 Therapeutic Procedure, Each 15 M inutes Completed 01/14/2021 61558 Therapeutic Procedure, Each 15 M inutes Completed 01/09/2021 96753 Therapeutic Procedure, Each 15 M inutes Completed 01/09/2021 23769 Therapeutic Procedure, Each 15 M inutes Completed 01/07/2021 88901 Therapeutic Procedure, Each 15 M inutes Completed 01/07/2021 99781 Therapeutic Procedure, Each 15 M inutes Completed 01/02/2021 26715 Physical Therapy Eval - Low Comp lexity Completed 12/10/2020 92916 Office/Outpatient [facility] 30 -44 Minutes Completed 12/10/2020 96568 X-Ray Humerus Two Views Complete d Medical Devices Description No Information Available Encounters Type Date Location Provider Dx Diagnosis Office Visit 02/25/2021 3[place] M75.41 Impingement syndrome of right shoulder Office Visit 01/26/2021 3:30p ISMA Dickson M75.41 Impingement syndrome of right shoulder Office Visit 12/10/2020 2:30p ISMA Dickson M75.41 Impingement syndrome of right shoulder Assessments Date Code Description Provider 05/05/2021 M75.41 Impingement syndrome of right sh lali Martinsbrian Ritchie, SOCIAL WORK ASSISTANT 04/30/2021 M75.41 Impingement syndrome of right sh lali Martinsbrian Ritchie, SOCIAL WORK ASSISTANT 04/28/2021 M75.41 Impingement syndrome of right sh lali Martinsbrian Ritchie, SOCIAL WORK ASSISTANT 04/23/2021 M75.41 Impingement syndrome of right sh lali Martinsbrian Ritchie, SOCIAL WORK ASSISTANT 04/20/2021 M75.41 Impingement syndrome of right sh lali Martinsbrian Ritchie, SOCIAL WORK ASSISTANT 04/17/2021 M75.41 Impingement syndrome of right sh billdianne Davida Barrios, MSPT 04/13/2021 M75.41 Impingement syndrome of right sh billlder Chelle Ritchie, SOCIAL WORK ASSISTANT 04/10/2021 M75.41 Impingement syndrome of right sh lali Barrios, MSPT 04/06/2021 M75.41 Impingement syndrome of right sh lali Ritchie, SOCIAL WORK ASSISTANT 04/01/2021 M75.41 Impingement syndrome of right sh billlder Alfonzo Arellano, SOCIAL WORK ASSISTANT 03/30/2021 M75.41 Impingement syndrome of right sh billldhayes Ritchie, SOCIAL WORK ASSISTANT 03/25/2021 M75.41 Impingement syndrome of right sh billlder Danae Scee P.T.A. 03/23/2021 M75.41 Impingement syndrome of right sh oulder Danae Scee P.T.A. 03/18/2021 M75.41 Impingement syndrome of right sh billlder Danae Scee P.T.A. 03/16/2021 M75.41 Impingement syndrome of right sh lali Barrios, MSPT 02/25/2021 M75.41 Impingement syndrome of right sh lali Barrios, MSPT 02/25/2021 M75.41 Impingement syndrome of right sh billlder Nilesh Contreras, PA 02/18/2021 M75.41 Impingement syndrome of right sh lali Ritchie, SOCIAL WORK ASSISTANT 02/11/2021 M75.41 Impingement syndrome of right sh lali Barrios, MSPT 02/06/2021 M75.41 Impingement syndrome of right sh lali Barrios, MSPT 01/30/2021 M75.41 Impingement syndrome of right sh lali Ritchie, SOCIAL WORK ASSISTANT 01/28/2021 M75.41 Impingement syndrome of right sh lali Barrios, MSPT 01/26/2021 M75.41 Impingement syndrome of right sh oulder Nilesh Contreras, PA 01/23/2021 M75.41 Impingement syndrome of right sh oulder Alfonzo Arellano, SOCIAL WORK ASSISTANT 01/20/2021 M75.41 Impingement syndrome of right sh oulder Humbleamarie Ortolano, SOCIAL WORK ASSISTANT 01/14/2021 M75.41 Impingement syndrome of right sh oulder Charyrie Ortolano, SOCIAL WORK ASSISTANT 01/09/2021 M75.41 Impingement syndrome of right sh oulder Charyrigilda Ortolano, SOCIAL WORK ASSISTANT 01/07/2021 M75.41 Impingement syndrome of right sh oulder Chelle Ritchie, SOCIAL WORK ASSISTANT 01/02/2021 M75.41 Impingement syndrome of right sh billlder Davida Barrios, MSPT 12/10/2020 M75.41 Impingement syndrome of right sh billlder ISMA Gonsales Plan of Treatment Future Appointment(s):* 05/13/2021 9:30 am - Danae Sesay P.T.A. at Physical Therapy * 05/15/2021 9:00 am - EDGAR Clayton at Physical Therapy Functional Status Description No Information Available Mental Status Description No Information Available Referrals Refer to Dr Reason for Referral Status Appt Date Andrae Wilburn MD PT ALLOWED EVAL THEN NEEDS A [facility] (([phone] TO PT DEPT. NT Closed [address] [place] [phone] Andrae Wilburn MD PT PER DELVIN AT [facility] APPROVAL F OR 12 VISITS ON RT SHOULDER TO PT DEPT. NT Created [address] [place] [phone] Andrae Wilburn MD PT BASED ON MED. [facility] TO PT DEPT. NT C reated [address] [place] [phone]
--- OUTSIDE RECORDS SUMMARY | 2021-06-24 11:44 | CCD | Continuity of Care Document ---
Author Melonie Galaviz [facility] Organization Unknown Address [address] [place] [phone] Phone [phone] Care Team Providers Care Sql Architect Name Role Phone Mary Salas MD [facility] [phone] Problems Active Problems Provider Date Type 2 [...] Metformin HCL 500mg Tablets Unknown Caltrate 600+D3 [id number] Tab lets 1 by mouth twice a [...] Available Procedures Date Code Description Status 05/07/2021 14846 Therapeutic Procedure, Each 15 M inutes Completed 05/05/2021 48618 Therapeutic Procedure, Each 15 M inutes Completed 04/30/2021 98696 Therapeutic Procedure, Each 15 M inutes Completed 04/28/2021 32098 Therapeutic Procedure, Each 15 M inutes Completed 04/23/2021 48457 Therapeutic Procedure, Each 15 M inutes Completed 04/20/2021 15458 Therapeutic Procedure, Each 15 M inutes Completed 04/17/2021 53474 Therapeutic Procedure, Each 15 M inutes Completed 04/13/2021 91530 Therapeutic Procedure, Each 15 M inutes Completed 04/10/2021 88705 Therapeutic Procedure, Each 15 M inutes Completed 04/06/2021 44702 Therapeutic Procedure, Each 15 M inutes Completed 04/01/2021 28884 Therapeutic Procedure, Each 15 M inutes Completed 03/30/2021 95845 Therapeutic Procedure, Each 15 M inutes Completed 03/25/2021 65890 Therapeutic Procedure, Each 15 M inutes Completed 03/23/2021 24616 Therapeutic Procedure, Each 15 M inutes Completed 03/18/2021 88689 Therapeutic Procedure, Each 15 M inutes Completed 03/16/2021 11085 Therapeutic Procedure, Each 15 M inutes Completed 02/25/2021 68417 Office/Outpatient Established Lo w MDM 20-29 Min Completed 02/25/2021 54564 Therapeutic Procedure, Each 15 M inutes Completed 02/25/2021 96925 Therapeutic Procedure, Each 15 M inutes Completed 02/18/2021 91754 Therapeutic Procedure, Each 15 M inutes Completed 02/18/2021 92498 Therapeutic Procedure, Each 15 M inutes Completed 02/11/2021 99904 Therapeutic Procedure, Each 15 M inutes Completed 02/11/2021 73417 Therapeutic Procedure, Each 15 M inutes Completed 02/06/2021 59996 Therapeutic Procedure, Each 15 M inutes Completed 02/06/2021 09673 Hot Or Cold Packs Completed 01/30/2021 03007 Therapeutic Procedure, Each 15 M inutes Completed 01/30/2021 93084 Therapeutic Procedure, Each 15 M inutes Completed 01/28/2021 93283 Therapeutic Procedure, Each 15 M inutes Completed 01/28/2021 57491 Therapeutic Procedure, Each 15 M inutes Completed 01/26/2021 17523 Office/Outpatient Established Lo w MDM 20-29 Min Completed 01/23/2021 85940 Therapeutic Procedure, Each 15 M inutes Completed 01/23/2021 34158 Therapeutic Procedure, Each 15 M inutes Completed 01/20/2021 65401 Therapeutic Procedure, Each 15 M inutes Completed 01/20/2021 01875 Therapeutic Procedure, Each 15 M inutes Completed 01/14/2021 71222 Therapeutic Procedure, Each 15 M inutes Completed 01/14/2021 70817 Therapeutic Procedure, Each 15 M inutes Completed 01/09/2021 58084 Therapeutic Procedure, Each 15 M inutes Completed 01/09/2021 50494 Therapeutic Procedure, Each 15 M inutes Completed 01/07/2021 28462 Therapeutic Procedure, Each 15 M inutes Completed 01/07/2021 07431 Therapeutic Procedure, Each 15 M inutes Completed 01/02/2021 66044 Physical Therapy Eval - Low Comp lexity Completed 12/10/2020 52892 Office/Outpatient New Low MDM 30 -44 Minutes Completed 12/10/2020 17645 X-Ray Humerus Two Views Complete d Medical Devices Description No Information Available Encounters Type Date Location Provider Dx Diagnosis Office Visit 02/25/2021 3:30p [place] M75.41 Impingement syndrome of right shoulder Office Visit 01/26/2021 3:30p AJ Dickson M75.41 Impingement syndrome of right shoulder Office Visit 12/10/2020 2:30p [place] M75.41 Impingement syndrome of right shoulder Assessments Date Code Description Provider 05/07/2021 M75.41 Impingement syndrome of right sh ireneer Chelle Ritchie, SEWER CONNECTOR 05/05/2021 M75.41 Impingement syndrome of right sh lali Martinsbrian Ritchie, SEWER CONNECTOR 04/30/2021 M75.41 Impingement syndrome of right sh lali Martinsbrian Ritchie, SEWER CONNECTOR 04/28/2021 M75.41 Impingement syndrome of right sh lali Martinsbrian Ritchie, SEWER CONNECTOR 04/23/2021 M75.41 Impingement syndrome of right sh ireneer Chelle Martinsbiran Ritchie, SEWER CONNECTOR 04/20/2021 M75.41 Impingement syndrome of right sh billlder Chelle Ritchie, SEWER CONNECTOR 04/17/2021 M75.41 Impingement syndrome of right sh ireneer Davida Barrios, MSPT 04/13/2021 M75.41 Impingement syndrome of right sh billlder Chelle Ritchie, SEWER CONNECTOR 04/10/2021 M75.41 Impingement syndrome of right sh billlder Davida Barrios, MSPT 04/06/2021 M75.41 Impingement syndrome of right sh billlder Chelle Ritchie, SEWER CONNECTOR 04/01/2021 M75.41 Impingement syndrome of right sh billlder Alfonzo Raolouisenena, SEWER CONNECTOR 03/30/2021 M75.41 Impingement syndrome of right sh billlder Chelle Ritchie, SEWER CONNECTOR 03/25/2021 M75.41 Impingement syndrome of right sh ould Danae Scee P.T.A. 03/23/2021 M75.41 Impingement syndrome of right sh ould Danae Scee P.T.A. 03/18/2021 M75.41 Impingement syndrome of right sh [facility] Danae Scee P.T.A. 03/16/2021 M75.41 Impingement syndrome of right sh irene Davida Barrios, MSPT 02/25/2021 M75.41 Impingement syndrome of right sh biller Davida Barrios, MSPT 02/25/2021 M75.41 Impingement syndrome of right sh [facility] Nilesh Contreras, PA 02/18/2021 M75.41 Impingement syndrome of right sh billlder Chelle Ritchie, SEWER CONNECTOR 02/11/2021 M75.41 Impingement syndrome of right sh lali Barrios, MSPT 02/06/2021 M75.41 Impingement syndrome of right sh lali Sullivanaj, MSPT 01/30/2021 M75.41 Impingement syndrome of right sh lali Ritchie, SEWER CONNECTOR 01/28/2021 M75.41 Impingement syndrome of right sh lali Barrios, MSPT 01/26/2021 M75.41 Impingement syndrome of right sh billlder Nilesh CadeMarely Contreras PA 01/23/2021 M75.41 Impingement syndrome of right sh oulder Charyrie Ortolano, SEWER CONNECTOR 01/20/2021 M75.41 Impingement syndrome of right sh oulder Danamarie Ortolano, SEWER CONNECTOR 01/14/2021 M75.41 Impingement syndrome of right sh oulder Danamarie Ortolano, SEWER CONNECTOR 01/09/2021 M75.41 Impingement syndrome of right sh oulder Danamarie Ortolano, SEWER CONNECTOR 01/07/2021 M75.41 Impingement syndrome of right sh billlder Chelle Ritchie, SEWER CONNECTOR 01/02/2021 M75.41 Impingement syndrome of right sh [...] MD PT ALLOWED EVAL THEN NEEDS A [facility] (([phone]) TO PT DEPT. NT Closed [address] [place] [phone] Andrae Wilburn MD PT PER DELVIN AT [facility] APPROVAL F OR 12 VISITS ON RT SHOULDER TO PT DEPT. NT Created [address] [place] [phone] Andrae Wilburn MD PT BASED ON MED. [facility] TO PT DEPT. NT C reated [address] [place] [address], [address] [phone]
--- OUTSIDE RECORDS SUMMARY | 2021-06-24 11:44 | CCD | Continuity of Care Document ---
Author Melonie Galaviz [facility] Organization Unknown Address [address] [place] [address] Phone [phone] Care Team Providers Care Hop Picker Name Role Phone Mary Salas MD [facility] [phone] Problems Active Problems Provider Date Type 2 [...] Metformin HCL 500mg Tablets Unknown Caltrate 600+D3 [id number] Tab lets 1 by mouth twice a [...] Available Procedures Date Code Description Status 05/07/2021 25876 Therapeutic Procedure, Each 15 M inutes Completed 05/05/2021 30574 Therapeutic Procedure, Each 15 M inutes Completed 04/30/2021 58377 Therapeutic Procedure, Each 15 M inutes Completed 04/28/2021 24809 Therapeutic Procedure, Each 15 M inutes Completed 04/23/2021 89331 Therapeutic Procedure, Each 15 M inutes Completed 04/20/2021 64397 Therapeutic Procedure, Each 15 M inutes Completed 04/17/2021 02630 Therapeutic Procedure, Each 15 M inutes Completed 04/13/2021 38128 Therapeutic Procedure, Each 15 M inutes Completed 04/10/2021 02671 Therapeutic Procedure, Each 15 M inutes Completed 04/06/2021 54472 Therapeutic Procedure, Each 15 M inutes Completed 04/01/2021 21527 Therapeutic Procedure, Each 15 M inutes Completed 03/30/2021 33456 Therapeutic Procedure, Each 15 M inutes Completed 03/25/2021 92783 Therapeutic Procedure, Each 15 M inutes Completed 03/23/2021 07212 Therapeutic Procedure, Each 15 M inutes Completed 03/18/2021 98946 Therapeutic Procedure, Each 15 M inutes Completed 03/16/2021 21766 Therapeutic Procedure, Each 15 M inutes Completed 02/25/2021 59494 Office/Outpatient Established Lo w MDM 20-29 Min Completed 02/25/2021 40476 Therapeutic Procedure, Each 15 M inutes Completed 02/25/2021 93831 Therapeutic Procedure, Each 15 M inutes Completed 02/18/2021 98906 Therapeutic Procedure, Each 15 M inutes Completed 02/18/2021 03651 Therapeutic Procedure, Each 15 M inutes Completed 02/11/2021 93669 Therapeutic Procedure, Each 15 M inutes Completed 02/11/2021 44385 Therapeutic Procedure, Each 15 M inutes Completed 02/06/2021 14008 Therapeutic Procedure, Each 15 M inutes Completed 02/06/2021 23830 Hot Or Cold Packs Completed 01/30/2021 45113 Therapeutic Procedure, Each 15 M inutes Completed 01/30/2021 57173 Therapeutic Procedure, Each 15 M inutes Completed 01/28/2021 13935 Therapeutic Procedure, Each 15 M inutes Completed 01/28/2021 86901 Therapeutic Procedure, Each 15 M inutes Completed 01/26/2021 58206 Office/Outpatient Established Lo w MDM 20-29 Min Completed 01/23/2021 78598 Therapeutic Procedure, Each 15 M inutes Completed 01/23/2021 59584 Therapeutic Procedure, Each 15 M inutes Completed 01/20/2021 34937 Therapeutic Procedure, Each 15 M inutes Completed 01/20/2021 86438 Therapeutic Procedure, Each 15 M inutes Completed 01/14/2021 98257 Therapeutic Procedure, Each 15 M inutes Completed 01/14/2021 25590 Therapeutic Procedure, Each 15 M inutes Completed 01/09/2021 94756 Therapeutic Procedure, Each 15 M inutes Completed 01/09/2021 48724 Therapeutic Procedure, Each 15 M inutes Completed 01/07/2021 75124 Therapeutic Procedure, Each 15 M inutes Completed 01/07/2021 44648 Therapeutic Procedure, Each 15 M inutes Completed 01/02/2021 13368 Physical Therapy Eval - Low Comp lexity Completed 12/10/2020 28707 Office/Outpatient New Low MDM 30 -44 Minutes Completed 12/10/2020 09461 X-Ray Humerus Two Views Complete d Medical Devices Description No Information Available Encounters Type Date Location Provider Dx Diagnosis Office Visit 02/25/2021 3:30p [place] P[place] M75.41 Impingement syndrome of right shoulder Office Visit 01/26/2021 3:30p AJ Dickson M75.41 Impingement syndrome of right shoulder Office Visit 12/10/2020 2:30p [place] Pryor M75.41 Impingement syndrome of right shoulder Assessments Date Code Description Provider 05/07/2021 M75.41 Impingement syndrome of right sh ireneer Chelle Ritchie, NURSING HOME DIRECTOR 05/05/2021 M75.41 Impingement syndrome of right sh lali Martinsbrian Ritchie, NURSING HOME DIRECTOR 04/30/2021 M75.41 Impingement syndrome of right sh lali Martinsbrian Ritchie, NURSING HOME DIRECTOR 04/28/2021 M75.41 Impingement syndrome of right sh lali Martinsbrian Ritchie, NURSING HOME DIRECTOR 04/23/2021 M75.41 Impingement syndrome of right sh ireneer Chelle Martinsbrian Ritchie, NURSING HOME DIRECTOR 04/20/2021 M75.41 Impingement syndrome of right sh billlder Chelle Ritchie, NURSING HOME DIRECTOR 04/17/2021 M75.41 Impingement syndrome of right sh ireneer Davida Barrios, MSPT 04/13/2021 M75.41 Impingement syndrome of right sh billlder Chelle Ritchie, NURSING HOME DIRECTOR 04/10/2021 M75.41 Impingement syndrome of right sh billlder Davida Barrios, MSPT 04/06/2021 M75.41 Impingement syndrome of right sh billlder Chelle Ritchie, NURSING HOME DIRECTOR 04/01/2021 M75.41 Impingement syndrome of right sh billlder Alfonzo Raolouisenena, NURSING HOME DIRECTOR 03/30/2021 M75.41 Impingement syndrome of right sh billlder Chelle Ritchie, NURSING HOME DIRECTOR 03/25/2021 M75.41 Impingement syndrome of right sh ould Danae Scee P.T.A. 03/23/2021 M75.41 Impingement syndrome of right sh ould Danae Scee P.T.A. 03/18/2021 M75.41 Impingement syndrome of right sh [facility] Daane Scee P.T.A. 03/16/2021 M75.41 Impingement syndrome of right sh irene Davida Barrios, MSPT 02/25/2021 M75.41 Impingement syndrome of right sh biller Davida Barrios, MSPT 02/25/2021 M75.41 Impingement syndrome of right sh [facility] Nilesh Contreras, PA 02/18/2021 M75.41 Impingement syndrome of right sh billlder Chelle Rtichie, NURSING HOME DIRECTOR 02/11/2021 M75.41 Impingement syndrome of right sh lali Barrios, MSPT 02/06/2021 M75.41 Impingement syndrome of right sh lali Sullivanaj, MSPT 01/30/2021 M75.41 Impingement syndrome of right sh lali Ritchie, NURSING HOME DIRECTOR 01/28/2021 M75.41 Impingement syndrome of right sh lali Barrios, MSPT 01/26/2021 M75.41 Impingement syndrome of right sh billlder Nilesh CadeMarley Contreras PA 01/23/2021 M75.41 Impingement syndrome of right sh oulder Charyrie Ortolano, NURSING HOME DIRECTOR 01/20/2021 M75.41 Impingement syndrome of right sh oulder Danamarie Ortolano, NURSING HOME DIRECTOR 01/14/2021 M75.41 Impingement syndrome of right sh oulder Danamarie Ortolano, NURSING HOME DIRECTOR 01/09/2021 M75.41 Impingement syndrome of right sh oulder Danamarie Ortolano, NURSING HOME DIRECTOR 01/07/2021 M75.41 Impingement syndrome of right sh billlder Chelle Ritchie, NURSING HOME DIRECTOR 01/02/2021 M75.41 Impingement syndrome of right sh [...] MD PT ALLOWED EVAL THEN NEEDS A CTH (([phone]) TO PT DEPT. NT Closed [address] [place] [address] [phone] Andrae Wilburn MD PT PER DELVIN AT [facility] APPROVAL F OR 12 VISITS ON RT SHOULDER TO PT DEPT. NT Created [address] [place] [address] [phone] Andrae Wilburn MD PT BASED ON MED. [facility] TO PT DEPT. NT C reated [address] [place] [address], [address] [address] [phone]
--- OUTSIDE RECORDS SUMMARY | 2021-06-24 11:44 | CCD | Continuity of Care Document ---
Author Author Melonie BARRIOS MSPT Organization Unknown Address [address] [place] [address] Phone [phone] Care Team Providers Care Cocoa Milling Machine Operator Name Role Phone Mary Salas MD [facility] [phone] Problems Active Problems Provider Date Type 2 [...] mouth after meals every day 60tabs M75.41 D. Guy Wilburn MD Cephalexin 500mg Capsules Take One Capsule By Mouth Four Times A Day Unknown Metformin HCL 500mg Tablets Unknown Caltrate 600+D3 [id number] Tab lets 1 by mouth twice a [...] Information Available Procedures Date Code Description Status 05/15/2021 58910 Therapeutic Procedure, Each 15 M inutes Completed 05/13/2021 63920 Therapeutic Procedure, Each 15 M inutes Completed 05/07/2021 40207 Hot Or Cold Packs Completed 05/07/2021 24913 Therapeutic Procedure, Each 15 M inutes Completed 05/05/2021 45589 Therapeutic Procedure, Each 15 M inutes Completed 05/05/2021 56920 Hot Or Cold Packs Completed 04/30/2021 19438 Therapeutic Procedure, Each 15 M inutes Completed 04/30/2021 68451 Hot Or Cold Packs Completed 04/28/2021 34342 Therapeutic Procedure, Each 15 M inutes Completed 04/28/2021 97198 Hot Or Cold Packs Completed 04/23/2021 93862 Therapeutic Procedure, Each 15 M inutes Completed 04/20/2021 33631 Therapeutic Procedure, Each 15 M inutes Completed 04/17/2021 40038 Therapeutic Procedure, Each 15 M inutes Completed 04/13/2021 53753 Therapeutic Procedure, Each 15 M inutes Completed 04/10/2021 67784 Therapeutic Procedure, Each 15 M inutes Completed 04/06/2021 11647 Therapeutic Procedure, Each 15 M inutes Completed 04/01/2021 12067 Therapeutic Procedure, Each 15 M inutes Completed 03/30/2021 56893 Therapeutic Procedure, Each 15 M inutes Completed 03/25/2021 19803 Therapeutic Procedure, Each 15 M inutes Completed 03/23/2021 82332 Therapeutic Procedure, Each 15 M inutes Completed 03/18/2021 22891 Therapeutic Procedure, Each 15 M inutes Completed 03/16/2021 23918 Therapeutic Procedure, Each 15 M inutes Completed 02/25/2021 98882 Therapeutic Procedure, Each 15 M inutes Completed 02/25/2021 00497 Office/Outpatient Established Lo w MDM 20-29 Min Completed 02/25/2021 74035 Therapeutic Procedure, Each 15 M inutes Completed 02/18/2021 81435 Therapeutic Procedure, Each 15 M inutes Completed 02/18/2021 24674 Therapeutic Procedure, Each 15 M inutes Completed 02/11/2021 46474 Therapeutic Procedure, Each 15 M inutes Completed 02/11/2021 93936 Therapeutic Procedure, Each 15 M inutes Completed 02/06/2021 04399 Therapeutic Procedure, Each 15 M inutes Completed 02/06/2021 81661 Hot Or Cold Packs Completed 01/30/2021 45315 Therapeutic Procedure, Each 15 M inutes Completed 01/30/2021 62020 Therapeutic Procedure, Each 15 M inutes Completed 01/28/2021 12715 Therapeutic Procedure, Each 15 M inutes Completed 01/28/2021 52181 Therapeutic Procedure, Each 15 M inutes Completed 01/26/2021 35809 Office/Outpatient Established Lo w MDM 20-29 Min Completed 01/23/2021 52049 Therapeutic Procedure, Each 15 M inutes Completed 01/23/2021 08882 Therapeutic Procedure, Each 15 M inutes Completed 01/20/2021 98920 Therapeutic Procedure, Each 15 M inutes Completed 01/20/2021 56877 Therapeutic Procedure, Each 15 M inutes Completed 01/14/2021 70132 Therapeutic Procedure, Each 15 M inutes Completed 01/14/2021 07622 Therapeutic Procedure, Each 15 M inutes Completed 01/09/2021 98416 Therapeutic Procedure, Each 15 M inutes Completed 01/09/2021 20090 Therapeutic Procedure, Each 15 M inutes Completed 01/07/2021 09656 Therapeutic Procedure, Each 15 M inutes Completed 01/07/2021 98818 Therapeutic Procedure, Each 15 M inutes Completed 01/02/2021 83179 Physical Therapy Eval - Low Comp lexity Completed 12/10/2020 48084 Office/Outpatient New Low MDM 30 -44 Minutes Completed 12/10/2020 64791 X-Ray Humerus Two Views Complete d Medical Devices Description No Information Available Encounters Type Date Location Provider Dx Diagnosis Office Visit [place] M75.41 Impingement syndrome of right shoulder Office Visit 01/26/2021 3:30p [place] ISMA Gonsales M75.41 Impingement syndrome of right shoulder Office Visit 12/10/2020 2:30p IS[facility] Dickson M75.41 Impingement syndrome of right shoulder Assessments Date Code Description Provider 05/15/2021 M75.41 Impingement syndrome of right sh lali Barrios, MARCIT 05/13/2021 M75.41 Impingement syndrome of right sh lali Arellano, INVERFORM MACHINE OPERATOR 05/07/2021 M75.41 Impingement syndrome of right sh lali Ritchie, INVERFORM MACHINE OPERATOR 05/05/2021 M75.41 Impingement syndrome of right sh lali Ritchie, INVERFORM MACHINE OPERATOR 04/30/2021 M75.41 Impingement syndrome of right sh lali Ritchie, INVERFORM MACHINE OPERATOR 04/28/2021 M75.41 Impingement syndrome of right sh lali Ritchie, INVERFORM MACHINE OPERATOR 04/23/2021 M75.41 Impingement syndrome of right sh lali Ritchie, INVERFORM MACHINE OPERATOR 04/20/2021 M75.41 Impingement syndrome of right sh lali Ritchie, INVERFORM MACHINE OPERATOR 04/17/2021 M75.41 Impingement syndrome of right sh billlder aDvida LebronMarley Barrios, MSPT 04/13/2021 M75.41 Impingement syndrome of right sh lali Ritchie, INVERFORM MACHINE OPERATOR 04/10/2021 M75.41 Impingement syndrome of right sh biller Davida Parisi Sophie, MSPT 04/06/2021 M75.41 Impingement syndrome of right sh lali Ritchie, INVERFORM MACHINE OPERATOR 04/01/2021 M75.41 Impingement syndrome of right sh lali Arellano, INVERFORM MACHINE OPERATOR 03/30/2021 M75.41 Impingement syndrome of right sh lali Ritchie, INVERFORM MACHINE OPERATOR 03/25/2021 M75.41 Impingement syndrome of right sh billlder Danae Scee P.T.A. 03/23/2021 M75.41 Impingement syndrome of right sh billlder Danae Scee P.T.A. 03/18/2021 M75.41 Impingement syndrome of right sh billlder Danae Scee P.T.A. 03/16/2021 M75.41 Impingement syndrome of right sh billlder Davida Barrios, MSPT 02/25/2021 M75.41 Impingement syndrome of right sh ireneer Davida Barrios, MSPT 02/25/2021 M75.41 Impingement syndrome of right sh oulder ISMA Gonsales 02/18/2021 M75.41 Impingement syndrome of right sh lali Ritchie, INVERFORM MACHINE OPERATOR 02/11/2021 M75.41 Impingement syndrome of right sh lali Barrios, MSPT 02/06/2021 M75.41 Impingement syndrome of right sh ireneer Davida Barrios, MSPT 01/30/2021 M75.41 Impingement syndrome of right sh ireneer Chelle Ritchie, INVERFORM MACHINE OPERATOR 01/28/2021 M75.41 Impingement syndrome of right sh ireneer Davida Barrios, MSPT 01/26/2021 M75.41 Impingement syndrome of right sh ireneer Nilesh ISMA Rios 01/23/2021 M75.41 Impingement syndrome of right sh ireneer Charyrie Ortolano, INVERFORM MACHINE OPERATOR 01/20/2021 M75.41 Impingement syndrome of right sh billlder Charyrie Ortolano, INVERFORM MACHINE OPERATOR 01/14/2021 M75.41 Impingement syndrome of right sh billlder Humbleamarie Ortolano, INVERFORM MACHINE OPERATOR 01/09/2021 M75.41 Impingement syndrome of right sh ireneer Alfonzo Raotolannena, INVERFORM MACHINE OPERATOR 01/07/2021 M75.41 Impingement syndrome of right sh lali Ritchie, INVERFORM MACHINE OPERATOR 01/02/2021 M75.41 Impingement syndrome of right sh lali Barrios, MSPT 12/10/2020 M75.41 Impingement syndrome of right sh lali ISMA Gonsales Plan of Treatment No Information Available Functional Status Description No Information Available Mental Status Description No Information Available Referrals Refer to Dr Reason for Referral Status Appt Date Andrae Wilburn MD PT ALLOWED EVAL THEN NEEDS A [facility] (([phone]) TO PT DEPT. NT Closed [facility] [facility], [address] [place] [address] [phone] Andrae Wilburn MD PT PER DELVIN AT [facility] APPROVAL F OR 12 VISITS ON RT SHOULDER TO PT DEPT. NT Created [address] [place] [address] [phone] Andrae Wilburn MD PT BASED ON MED. [facility] TO PT DEPT. NT C reated [address] [place] [address] [phone]
--- OUTSIDE RECORDS SUMMARY | 2021-06-24 11:44 | CCD | Continuity of Care Document ---
Author Author Melonie DUQUE MSPT Organization Unknown Address [address] [place] [address] Phone [phone] Care Team Providers Care Health Insurance Agent Name Role Phone Mary Salas MD AUTM [phone] Problems Active Problems Provider Date Type 2 [...] Metformin HCL 500mg Tablets Unknown Caltrate 600+D3 [id number] Tab lets 1 by mouth twice a [...] Information Available Procedures Date Code Description Status 05/13/2021 64539 Therapeutic Procedure, Each 15 M inutes Completed 05/07/2021 45547 Therapeutic Procedure, Each 15 M inutes Completed 05/05/2021 21126 Therapeutic Procedure, Each 15 M inutes Completed 04/30/2021 51383 Therapeutic Procedure, Each 15 M inutes Completed 04/28/2021 87353 Therapeutic Procedure, Each 15 M inutes Completed 04/23/2021 61015 Therapeutic Procedure, Each 15 M inutes Completed 04/20/2021 37771 Therapeutic Procedure, Each 15 M inutes Completed 04/17/2021 62537 Therapeutic Procedure, Each 15 M inutes Completed 04/13/2021 31567 Therapeutic Procedure, Each 15 M inutes Completed 04/10/2021 08458 Therapeutic Procedure, Each 15 M inutes Completed 04/06/2021 24828 Therapeutic Procedure, Each 15 M inutes Completed 04/01/2021 01856 Therapeutic Procedure, Each 15 M inutes Completed 03/30/2021 32241 Therapeutic Procedure, Each 15 M inutes Completed 03/25/2021 63071 Therapeutic Procedure, Each 15 M inutes Completed 03/23/2021 47662 Therapeutic Procedure, Each 15 M inutes Completed 03/18/2021 66818 Therapeutic Procedure, Each 15 M inutes Completed 03/16/2021 23706 Therapeutic Procedure, Each 15 M inutes Completed 02/25/2021 58245 Office/Outpatient Established Lo w MDM 20-29 Min Completed 02/25/2021 37328 Therapeutic Procedure, Each 15 M inutes Completed 02/25/2021 97140 Therapeutic Procedure, Each 15 M inutes Completed 02/18/2021 56704 Therapeutic Procedure, Each 15 M inutes Completed 02/18/2021 37266 Therapeutic Procedure, Each 15 M inutes Completed 02/11/2021 54714 Therapeutic Procedure, Each 15 M inutes Completed 02/11/2021 45977 Therapeutic Procedure, Each 15 M inutes Completed 02/06/2021 52242 Therapeutic Procedure, Each 15 M inutes Completed 02/06/2021 37660 Hot Or Cold Packs Completed 01/30/2021 69126 Therapeutic Procedure, Each 15 M inutes Completed 01/30/2021 58111 Therapeutic Procedure, Each 15 M inutes Completed 01/28/2021 18683 Therapeutic Procedure, Each 15 M inutes Completed 01/28/2021 56091 Therapeutic Procedure, Each 15 M inutes Completed 01/26/2021 74098 Office/Outpatient Established Lo w MDM 20-29 Min Completed 01/23/2021 50703 Therapeutic Procedure, Each 15 M inutes Completed 01/23/2021 22517 Therapeutic Procedure, Each 15 M inutes Completed 01/20/2021 46187 Therapeutic Procedure, Each 15 M inutes Completed 01/20/2021 42459 Therapeutic Procedure, Each 15 M inutes Completed 01/14/2021 40041 Therapeutic Procedure, Each 15 M inutes Completed 01/14/2021 24702 Therapeutic Procedure, Each 15 M inutes Completed 01/09/2021 25144 Therapeutic Procedure, Each 15 M inutes Completed 01/09/2021 80496 Therapeutic Procedure, Each 15 M inutes Completed 01/07/2021 42490 Therapeutic Procedure, Each 15 M inutes Completed 01/07/2021 20198 Therapeutic Procedure, Each 15 M inutes Completed 01/02/2021 07081 Physical Therapy Eval - Low Comp lexity Completed 12/10/2020 71365 Office/Outpatient New Low MDM 30 -44 Minutes Completed 12/10/2020 71000 X-Ray Humerus Two Views Complete d Medical Devices Description No Information Available Encounters Type Date Location Provider Dx Diagnosis Office Visit 02/25/2021 3[place] M75.41 Impingement syndrome of right shoulder Office Visit 01/26/2021 3:30p AJ Dickson M75.41 Impingement syndrome of right shoulder Office Visit 12/10/2020 2:30p AJ Dickson M75.41 Impingement syndrome of right shoulder Assessments Date Code Description Provider 05/13/2021 M75.41 Impingement syndrome of right sh billlder Hum[place]elsa Eileen, FREIGHT REPRESENTATIVE 05/07/2021 M75.41 Impingement syndrome of right sh billlder Chelle Melonie Ritchie, FREIGHT REPRESENTATIVE 05/05/2021 M75.41 Impingement syndrome of right sh billlder Chelle Ritchie, FREIGHT REPRESENTATIVE 04/30/2021 M75.41 Impingement syndrome of right sh billlder Chelle Melonie Ritchie, FREIGHT REPRESENTATIVE 04/28/2021 M75.41 Impingement syndrome of right sh oulder Chelle Melonie Ritchie, FREIGHT REPRESENTATIVE 04/23/2021 M75.41 Impingement syndrome of right sh ireneer Chelle Ritchie, FREIGHT REPRESENTATIVE 04/20/2021 M75.41 Impingement syndrome of right sh ireneer Chelle Ritchie, FREIGHT REPRESENTATIVE 04/17/2021 M75.41 Impingement syndrome of right sh billlder Davida Duque, MSPT 04/13/2021 M75.41 Impingement syndrome of right sh billlder Chelle Ritchie, FREIGHT REPRESENTATIVE 04/10/2021 M75.41 Impingement syndrome of right sh billlder Davida Duque, MSPT 04/06/2021 M75.41 Impingement syndrome of right sh billlder Chelle Ritchie, FREIGHT REPRESENTATIVE 04/01/2021 M75.41 Impingement syndrome of right sh billlder Alfonzo Raolarisa, FREIGHT REPRESENTATIVE 03/30/2021 M75.41 Impingement syndrome of right sh lali Ritchie, FREIGHT REPRESENTATIVE 03/25/2021 M75.41 Impingement syndrome of right sh oulder Danae Scee P.T.A. 03/23/2021 M75.41 Impingement syndrome of right sh oulder Danae Scee P.T.A. 03/18/2021 M75.41 Impingement syndrome of right sh billlder Danae Scee P.T.A. 03/16/2021 M75.41 Impingement syndrome of right sh lali Sullivanaj, MSPT 02/25/2021 M75.41 Impingement syndrome of right sh ireneer Davida Sullivanaj, MSPT 02/25/2021 M75.41 [facility] Nilesh Contreras, [place] 02/18/2021 M75.41 Impingement syndrome of right sh lali Ritchie, FREIGHT REPRESENTATIVE 02/11/2021 M75.41 Impingement syndrome of right sh lali Sullivanaj, MSPT 02/06/2021 M75.41 Impingement syndrome of right sh lali [place] BernardinoMarley Nateaj, MSPT 01/30/2021 M75.41 Impingement syndrome of right sh billlder Chelle Martinsbrian Ritchie, FREIGHT REPRESENTATIVE 01/28/2021 M75.41 Impingement syndrome of right sh ireneer Davida Parisi Sophie, MSPT 01/26/2021 M75.41 Impingement syndrome of right sh billlder Nilesh CadeAJ Hernandez 01/23/2021 M75.41 Impingement syndrome of right sh oulder Danrhonarie Ortolano, FREIGHT REPRESENTATIVE 01/20/2021 M75.41 Impingement syndrome of right sh oulder Danamarie Ortolano, FREIGHT REPRESENTATIVE 01/14/2021 M75.41 Impingement syndrome of right sh oulder Danamarie Ortolano, FREIGHT REPRESENTATIVE 01/09/2021 M75.41 Impingement syndrome of right sh oulder Humbleamarie Ortolano, FREIGHT REPRESENTATIVE 01/07/2021 M75.41 Impingement syndrome of right sh ireneer Chelle Ritchie, FREIGHT REPRESENTATIVE 01/02/2021 M75.41 Impingement syndrome of right sh ireneer Davida Parisi Sophie, MSPT 12/10/2020 M75.41 Impingement syndrome of right sh lali Nilesh AJ Rios Plan of Treatment Future Appointment(s):* 05/20/2021 9:30 am - Chelle Ritchie PTA at Physical Therapy * 05/18/2021 11:00 am - MARCI ClaytonT at Physical Therapy Functional Status Description No Information Available Mental Status Description No Information Available Referrals Refer to Dr Reason for Referral Status Appt Date Andrae Wilburn MD PT ALLOWED EVAL THEN NEEDS A [facility] (([phone]) TO PT DEPT. NT Closed [address] [place] [address], [address] [address] [phone] Andrae Wilburn MD PT PER DELVIN AT R APPROVAL F OR 12 VISITS ON RT SHOULDER TO PT DEPT. NT Created [address] [place] [address], [address] [address] [phone] Andrae Wilburn MD PT BASED ON MED. [facility] TO PT DEPT. NT C reated [address] [facility], [address] [place] [address] [phone]
--- OUTSIDE RECORDS SUMMARY | 2021-06-24 11:44 | CCD | Continuity of Care Document ---
Author Author Melonie NGUYEN [facility] Organization Unknown Address [address] [place] [address] Phone [phone] Care Team Providers Care Card Doffer Name Role Phone Mary Salas MD [facility] [phone] Problems Active Problems Provider Date Type 2 [...] Metformin HCL 500mg Tablets Unknown Caltrate 600+D3 [id number] Tab lets 1 by mouth twice a [...] Available Procedures Date Code Description Status 05/15/2021 78809 Therapeutic Procedure, Each 15 M inutes Completed 05/13/2021 67951 Therapeutic Procedure, Each 15 M inutes Completed 05/07/2021 51722 Hot Or Cold Packs Completed 05/07/2021 02941 Therapeutic Procedure, Each 15 M inutes Completed 05/05/2021 84207 Therapeutic Procedure, Each 15 M inutes Completed 05/05/2021 36495 Hot Or Cold Packs Completed 04/30/2021 94637 Therapeutic Procedure, Each 15 M inutes Completed 04/30/2021 60425 Hot Or Cold Packs Completed 04/28/2021 52118 Therapeutic Procedure, Each 15 M inutes Completed 04/28/2021 65748 Hot Or Cold Packs Completed 04/23/2021 06604 Therapeutic Procedure, Each 15 M inutes Completed 04/20/2021 29037 Therapeutic Procedure, Each 15 M inutes Completed 04/17/2021 89367 Therapeutic Procedure, Each 15 M inutes Completed 04/13/2021 31040 Therapeutic Procedure, Each 15 M inutes Completed 04/10/2021 20330 Therapeutic Procedure, Each 15 M inutes Completed 04/06/2021 16084 Therapeutic Procedure, Each 15 M inutes Completed 04/01/2021 32033 Therapeutic Procedure, Each 15 M inutes Completed 03/30/2021 77740 Therapeutic Procedure, Each 15 M inutes Completed 03/25/2021 81722 Therapeutic Procedure, Each 15 M inutes Completed 03/23/2021 19168 Therapeutic Procedure, Each 15 M inutes Completed 03/18/2021 86225 Therapeutic Procedure, Each 15 M inutes Completed 03/16/2021 72668 Therapeutic Procedure, Each 15 M inutes Completed 02/25/2021 79167 Therapeutic Procedure, Each 15 M inutes Completed 02/25/2021 16190 Office/Outpatient Established Lo w MDM 20-29 Min Completed 02/25/2021 13064 Therapeutic Procedure, Each 15 M inutes Completed 02/18/2021 69655 Therapeutic Procedure, Each 15 M inutes Completed 02/18/2021 07916 Therapeutic Procedure, Each 15 M inutes Completed 02/11/2021 05986 Therapeutic Procedure, Each 15 M inutes Completed 02/11/2021 10081 Therapeutic Procedure, Each 15 M inutes Completed 02/06/2021 22754 Therapeutic Procedure, Each 15 M inutes Completed 02/06/2021 06525 Hot Or Cold Packs Completed 01/30/2021 96158 Therapeutic Procedure, Each 15 M inutes Completed 01/30/2021 63435 Therapeutic Procedure, Each 15 M inutes Completed 01/28/2021 57695 Therapeutic Procedure, Each 15 M inutes Completed 01/28/2021 61447 Therapeutic Procedure, Each 15 M inutes Completed 01/26/2021 17405 Office/Outpatient Established Lo w MDM 20-29 Min Completed 01/23/2021 81643 Therapeutic Procedure, Each 15 M inutes Completed 01/23/2021 56702 Therapeutic Procedure, Each 15 M inutes Completed 01/20/2021 57741 Therapeutic Procedure, Each 15 M inutes Completed 01/20/2021 06429 Therapeutic Procedure, Each 15 M inutes Completed 01/14/2021 97520 Therapeutic Procedure, Each 15 M inutes Completed 01/14/2021 27266 Therapeutic Procedure, Each 15 M inutes Completed 01/09/2021 36278 Therapeutic Procedure, Each 15 M inutes Completed 01/09/2021 54317 Therapeutic Procedure, Each 15 M inutes Completed 01/07/2021 31492 Therapeutic Procedure, Each 15 M inutes Completed 01/07/2021 46824 Therapeutic Procedure, Each 15 M inutes Completed 01/02/2021 73806 Physical Therapy Eval - Low Comp lexity Completed 12/10/2020 43666 Office/Outpatient New Low MDM 30 -44 Minutes Completed 12/10/2020 41336 X-Ray Humerus Two Views Complete d Medical Devices Description No Information Available Encounters Type Date Location Provider Dx Diagnosis Office Visit 02/25/2021 3:30p ISMA Dickson M75.41 Impingement syndrome of right shoulder Office Visit 01/26/2021 3[place] M75.41 Impingement syndrome of right shoulder Office Visit 12/10/2020 2:30p ISMA Dickson M75.41 Impingement syndrome of right shoulder Assessments Date Code Description Provider 05/15/2021 M75.41 Impingement syndrome of right sh lali Barrios, MARCIT 05/13/2021 M75.41 Impingement syndrome of right sh oulder Alfonzo Nguyen, CAMP DINING ROOM ATTENDANT 05/07/2021 M75.41 Impingement syndrome of right sh lali Ritchie, CAMP DINING ROOM ATTENDANT 05/05/2021 M75.41 Impingement syndrome of right sh lali Ritchie, CAMP DINING ROOM ATTENDANT 04/30/2021 M75.41 Impingement syndrome of right sh lali Ritchie, CAMP DINING ROOM ATTENDANT 04/28/2021 M75.41 Impingement syndrome of right sh lali Ritchie, CAMP DINING ROOM ATTENDANT 04/23/2021 M75.41 Impingement syndrome of right sh lali Ritchie, CAMP DINING ROOM ATTENDANT 04/20/2021 M75.41 Impingement syndrome of right sh lali Ritchie, CAMP DINING ROOM ATTENDANT 04/17/2021 M75.41 Impingement syndrome of right sh billlder Davida LebronMarley Barrios, MSPT 04/13/2021 M75.41 Impingement syndrome of right sh lali Ritchie, CAMP DINING ROOM ATTENDANT 04/10/2021 M75.41 Impingement syndrome of right sh biller Davida Parisi Sophie, MSPT 04/06/2021 M75.41 Impingement syndrome of right sh lali Ritchie, CAMP DINING ROOM ATTENDANT 04/01/2021 M75.41 Impingement syndrome of right sh lali Nguyen, CAMP DINING ROOM ATTENDANT 03/30/2021 M75.41 Impingement syndrome of right sh lali Ritchie, CAMP DINING ROOM ATTENDANT 03/25/2021 M75.41 Impingement syndrome of right sh billlder Danae Scee P.T.A. 03/23/2021 M75.41 Impingement syndrome of right sh billlder Danae Scee P.T.A. 03/18/2021 M75.41 Impingement syndrome of right sh billlder Danae Scee P.T.A. 03/16/2021 M75.41 Impingement syndrome of right sh lali Davida Barrios, MSPT 02/25/2021 M75.41 Impingement syndrome of right sh ireneer Davida Barrios, MSPT 02/25/2021 M75.41 Impingement syndrome of right sh oulder ISMA Gonsales 02/18/2021 M75.41 Impingement syndrome of right sh lali Ritchie, CAMP DINING ROOM ATTENDANT 02/11/2021 M75.41 Impingement syndrome of right sh lali Barrios, MSPT 02/06/2021 M75.41 Impingement syndrome of right sh lali Barrios, MSPT 01/30/2021 M75.41 Impingement syndrome of right sh lali Ritchie, CAMP DINING ROOM ATTENDANT 01/28/2021 M75.41 Impingement syndrome of right sh lali Barrios, MSPT 01/26/2021 M75.41 Impingement syndrome of right sh ireneer Nilesh Antelmo Contreras, ISMA 01/23/2021 M75.41 Impingement syndrome of right sh billlder Charyrie Ortolano, CAMP DINING ROOM ATTENDANT 01/20/2021 M75.41 Impingement syndrome of right sh billlder Humbleamarie Ortolano, CAMP DINING ROOM ATTENDANT 01/14/2021 M75.41 Impingement syndrome of right sh billlder Humbleamarie Ortolano, CAMP DINING ROOM ATTENDANT 01/09/2021 M75.41 Impingement syndrome of right sh ireneer Alfonzo Ortolannena, CAMP DINING ROOM ATTENDANT 01/07/2021 M75.41 Impingement syndrome of right sh lali Ritchie, CAMP DINING ROOM ATTENDANT 01/02/2021 M75.41 Impingement syndrome of right sh lali Barrios, MSPT 12/10/2020 M75.41 Impingement syndrome of right sh lali ISMA Gonsales Plan of Treatment No Information Available Functional Status Description No Information Available Mental Status Description No Information Available Referrals Refer to Dr Reason for Referral Status Appt Date Andrae Wilburn MD PT ALLOWED EVAL THEN NEEDS A [facility] (([phone]) TO PT DEPT. NT Closed [facility] [facility], [address] [place] [address] [phone] Andrae Wilburn MD PT PER DELVIN AT [facility] APPROVAL F OR 12 VISITS ON RT SHOULDER TO PT DEPT. NT Created [address] [place] [phone] [phone] Andrae Wilburn MD PT BASED ON MED. [facility] TO PT DEPT. NT C reated [address] [place] [phone]
--- OUTSIDE RECORDS SUMMARY | 2021-06-24 11:44 | CCD | Continuity of Care Document ---
Author Melonie Galaviz [facility] Organization Unknown Address [address] [place] [address] Phone [phone] Care Team Providers Care Dry Cell Sealer Name Role Phone Mary Salas MD [facility] [phone] Problems Active Problems Provider Date Type 2 [...] Metformin HCL 500mg Tablets Unknown Caltrate 600+D3 [id number] Tab lets 1 by mouth twice a [...] Available Procedures Date Code Description Status 05/07/2021 67316 Therapeutic Procedure, Each 15 M inutes Completed 05/05/2021 47025 Therapeutic Procedure, Each 15 M inutes Completed 04/30/2021 58469 Therapeutic Procedure, Each 15 M inutes Completed 04/28/2021 63343 Therapeutic Procedure, Each 15 M inutes Completed 04/23/2021 07913 Therapeutic Procedure, Each 15 M inutes Completed 04/20/2021 22926 Therapeutic Procedure, Each 15 M inutes Completed 04/17/2021 21357 Therapeutic Procedure, Each 15 M inutes Completed 04/13/2021 84094 Therapeutic Procedure, Each 15 M inutes Completed 04/10/2021 08319 Therapeutic Procedure, Each 15 M inutes Completed 04/06/2021 82216 Therapeutic Procedure, Each 15 M inutes Completed 04/01/2021 71439 Therapeutic Procedure, Each 15 M inutes Completed 03/30/2021 82011 Therapeutic Procedure, Each 15 M inutes Completed 03/25/2021 35596 Therapeutic Procedure, Each 15 M inutes Completed 03/23/2021 18509 Therapeutic Procedure, Each 15 M inutes Completed 03/18/2021 62349 Therapeutic Procedure, Each 15 M inutes Completed 03/16/2021 70300 Therapeutic Procedure, Each 15 M inutes Completed 02/25/2021 56537 Office/Outpatient Established Lo w MDM 20-29 Min Completed 02/25/2021 70232 Therapeutic Procedure, Each 15 M inutes Completed 02/25/2021 11111 Therapeutic Procedure, Each 15 M inutes Completed 02/18/2021 68511 Therapeutic Procedure, Each 15 M inutes Completed 02/18/2021 15449 Therapeutic Procedure, Each 15 M inutes Completed 02/11/2021 10557 Therapeutic Procedure, Each 15 M inutes Completed 02/11/2021 56201 Therapeutic Procedure, Each 15 M inutes Completed 02/06/2021 10011 Therapeutic Procedure, Each 15 M inutes Completed 02/06/2021 98196 Hot Or Cold Packs Completed 01/30/2021 49141 Therapeutic Procedure, Each 15 M inutes Completed 01/30/2021 00214 Therapeutic Procedure, Each 15 M inutes Completed 01/28/2021 59121 Therapeutic Procedure, Each 15 M inutes Completed 01/28/2021 78913 Therapeutic Procedure, Each 15 M inutes Completed 01/26/2021 29179 Office/Outpatient Established Lo w MDM 20-29 Min Completed 01/23/2021 37397 Therapeutic Procedure, Each 15 M inutes Completed 01/23/2021 59163 Therapeutic Procedure, Each 15 M inutes Completed 01/20/2021 99215 Therapeutic Procedure, Each 15 M inutes Completed 01/20/2021 21764 Therapeutic Procedure, Each 15 M inutes Completed 01/14/2021 29332 Therapeutic Procedure, Each 15 M inutes Completed 01/14/2021 62658 Therapeutic Procedure, Each 15 M inutes Completed 01/09/2021 22887 Therapeutic Procedure, Each 15 M inutes Completed 01/09/2021 94563 Therapeutic Procedure, Each 15 M inutes Completed 01/07/2021 80678 Therapeutic Procedure, Each 15 M inutes Completed 01/07/2021 13354 Therapeutic Procedure, Each 15 M inutes Completed 01/02/2021 50375 Physical Therapy Eval - Low Comp lexity Completed 12/10/2020 60795 Office/Outpatient New Low MDM 30 -44 Minutes Completed 12/10/2020 61769 X-Ray Humerus Two Views Complete d Medical Devices Description No Information Available Encounters Type Date Location Provider Dx Diagnosis Office Visit 02/25/2021 3:30p [place] P[place] M75.41 Impingement syndrome of right shoulder Office Visit 01/26/2021 3:30p AJ Dickson M75.41 Impingement syndrome of right shoulder Office Visit 12/10/2020 2:30p [place] Pryor M75.41 Impingement syndrome of right shoulder Assessments Date Code Description Provider 05/07/2021 M75.41 Impingement syndrome of right sh ireneer Chelle Ritchie, SALESPERSON [employer] 05/05/2021 M75.41 Impingement syndrome of right sh lali Martinsbrian Ritchie, SALESPERSON [employer] 04/30/2021 M75.41 Impingement syndrome of right sh lali Martinsbrian Ritchei, SALESPERSON [employer] 04/28/2021 M75.41 Impingement syndrome of right sh lali Martinsbrian Ritchie, SALESPERSON [employer] 04/23/2021 M75.41 Impingement syndrome of right sh ireneer Chelle Martinsbrian Ritchie, SALESPERSON [employer] 04/20/2021 M75.41 Impingement syndrome of right sh billlder Chelle Ritchie, SALESPERSON [employer] 04/17/2021 M75.41 Impingement syndrome of right sh ireneer Davida Barrios, MSPT 04/13/2021 M75.41 Impingement syndrome of right sh billlder Chelle Ritchie, SALESPERSON [employer] 04/10/2021 M75.41 Impingement syndrome of right sh billlder Davida Barrios, MSPT 04/06/2021 M75.41 Impingement syndrome of right sh billlder Chelle Ritchie, SALESPERSON [employer] 04/01/2021 M75.41 Impingement syndrome of right sh billlder Alfonzo Raolouiesnena, SALESPERSON [employer] 03/30/2021 M75.41 Impingement syndrome of right sh billlder Chelle Ritchie, SALESPERSON [employer] 03/25/2021 M75.41 Impingement syndrome of right sh ould Danae Scee P.T.A. 03/23/2021 M75.41 Impingement syndrome of right sh ould Danae Scee P.T.A. 03/18/2021 M75.41 Impingement syndrome of right sh [facility] Danae Scee P.T.A. 03/16/2021 M75.41 Impingement syndrome of right sh irene Davida Barrios, MSPT 02/25/2021 M75.41 Impingement syndrome of right sh biller Davida Barrios, MSPT 02/25/2021 M75.41 Impingement syndrome of right sh [facility] Nilesh Contreras, PA 02/18/2021 M75.41 Impingement syndrome of right sh billlder Chelle Ritchie, SALESPERSON [employer] 02/11/2021 M75.41 Impingement syndrome of right sh lali Barrios, MSPT 02/06/2021 M75.41 Impingement syndrome of right sh lali Sullivanaj, MSPT 01/30/2021 M75.41 Impingement syndrome of right sh lali Ritchie, SALESPERSON [employer] 01/28/2021 M75.41 Impingement syndrome of right sh lali Barrios, MSPT 01/26/2021 M75.41 Impingement syndrome of right sh billlder Nilesh CadeMarley Contreras PA 01/23/2021 M75.41 Impingement syndrome of right sh oulder Charyrie Ortolano, SALESPERSON [employer] 01/20/2021 M75.41 Impingement syndrome of right sh oulder Danamarie Ortolano, SALESPERSON [employer] 01/14/2021 M75.41 Impingement syndrome of right sh oulder Danamarie Ortolano, SALESPERSON [employer] 01/09/2021 M75.41 Impingement syndrome of right sh oulder Danamarie Ortolano, SALESPERSON [employer] 01/07/2021 M75.41 Impingement syndrome of right sh billlder Chelle Ritchie, SALESPERSON [employer] 01/02/2021 M75.41 Impingement syndrome of right sh [...] MD PT ALLOWED EVAL THEN NEEDS A [facility] (([phone]) TO PT DEPT. NT Closed [address] [place] [address] [phone] Andrae Wilburn MD PT PER DELVIN AT [facility] APPROVAL F OR 12 VISITS ON RT SHOULDER TO PT DEPT. NT Created [address] [place] [address] [phone] Andrae Wilburn MD PT BASED ON MED. [facility] TO PT DEPT. NT C reated [address] [place] [address], [address] [address] [phone]
--- OUTSIDE RECORDS SUMMARY | 2021-06-24 11:44 | CCD | Continuity of Care Document ---
Author Melonie Galaviz [facility] Organization Unknown Address [address] [place] [address] Phone [phone] Care Team Providers Care Pencils Washer Name Role Phone Mary Salas MD [facility] [phone] Problems Active Problems Provider Date Type 2 [...] Metformin HCL 500mg Tablets Unknown Caltrate 600+D3 [id number] Tab lets 1 by mouth twice a [...] Information Available Procedures Date Code Description Status 04/30/2021 30382 Therapeutic Procedure, Each 15 M inutes Completed 04/28/2021 65243 Therapeutic Procedure, Each 15 M inutes Completed 04/23/2021 72401 Therapeutic Procedure, Each 15 M inutes Completed 04/20/2021 26869 Therapeutic Procedure, Each 15 M inutes Completed 04/17/2021 13438 Therapeutic Procedure, Each 15 M inutes Completed 04/13/2021 73841 Therapeutic Procedure, Each 15 M inutes Completed 04/10/2021 25365 Therapeutic Procedure, Each 15 M inutes Completed 04/06/2021 51319 Therapeutic Procedure, Each 15 M inutes Completed 04/01/2021 28031 Therapeutic Procedure, Each 15 M inutes Completed 03/30/2021 46977 Therapeutic Procedure, Each 15 M inutes Completed 03/25/2021 61853 Therapeutic Procedure, Each 15 M inutes Completed 03/23/2021 27206 Therapeutic Procedure, Each 15 M inutes Completed 03/18/2021 56905 Therapeutic Procedure, Each 15 M inutes Completed 03/16/2021 94794 Therapeutic Procedure, Each 15 M inutes Completed 02/25/2021 42505 Office/Outpatient Established Lo w MDM 20-29 Min Completed 02/25/2021 39368 Therapeutic Procedure, Each 15 M inutes Completed 02/25/2021 54101 Therapeutic Procedure, Each 15 M inutes Completed 02/18/2021 80301 Therapeutic Procedure, Each 15 M inutes Completed 02/18/2021 49246 Therapeutic Procedure, Each 15 M inutes Completed 02/11/2021 59760 Therapeutic Procedure, Each 15 M inutes Completed 02/11/2021 94403 Therapeutic Procedure, Each 15 M inutes Completed 02/06/2021 29492 Therapeutic Procedure, Each 15 M inutes Completed 02/06/2021 25909 Hot Or Cold Packs Completed 01/30/2021 12143 Therapeutic Procedure, Each 15 M inutes Completed 01/30/2021 44972 Therapeutic Procedure, Each 15 M inutes Completed 01/28/2021 69863 Therapeutic Procedure, Each 15 M inutes Completed 01/28/2021 84104 Therapeutic Procedure, Each 15 M inutes Completed 01/26/2021 92608 Office/Outpatient Established Lo w MDM 20-29 Min Completed 01/23/2021 71992 Therapeutic Procedure, Each 15 M inutes Completed 01/23/2021 20082 Therapeutic Procedure, Each 15 M inutes Completed 01/20/2021 18489 Therapeutic Procedure, Each 15 M inutes Completed 01/20/2021 80003 Therapeutic Procedure, Each 15 M inutes Completed 01/14/2021 43726 Therapeutic Procedure, Each 15 M inutes Completed 01/14/2021 13553 Therapeutic Procedure, Each 15 M inutes Completed 01/09/2021 53907 Therapeutic Procedure, Each 15 M inutes Completed 01/09/2021 28588 Therapeutic Procedure, Each 15 M inutes Completed 01/07/2021 92293 Therapeutic Procedure, Each 15 M inutes Completed 01/07/2021 71653 Therapeutic Procedure, Each 15 M inutes Completed 01/02/2021 65140 Physical Therapy Eval - Low Comp lexity Completed 12/10/2020 31684 Office/Outpatient [facility] 30 -44 Minutes Completed 12/10/2020 71180 X-Ray Humerus Two Views Complete d Medical Devices Description No Information Available Encounters Type Date Location Provider Dx Diagnosis Office Visit 02/25[facility]2021 [facility] M[facility].41 Impingement syndrome of right shoulder Office Visit 01/26/2021 3:30p ISMA Dickson M75.41 Impingement syndrome of right shoulder Office Visit 12/10/2020 2:30p ISMA Dickson M75.41 Impingement syndrome of right shoulder Assessments Date Code Description Provider 04/30/2021 M75.41 Impingement syndrome of right sh billlder Chellealda Ritchie, INTERMODAL CUSTOMER SERVICE 04/28/2021 M75.41 Impingement syndrome of right sh billlder Chellealda Ritchie, INTERMODAL CUSTOMER SERVICE 04/23/2021 M75.41 Impingement syndrome of right sh ireneer Chellealda Ritchie, INTERMODAL CUSTOMER SERVICE 04/20/2021 M75.41 Impingement syndrome of right sh ireneer Chellealda Ritchie, INTERMODAL CUSTOMER SERVICE 04/17/2021 M75.41 Impingement syndrome of right sh ireneer Davidaalfonzo Barrios, MSPT 04/13/2021 M75.41 Impingement syndrome of right sh billlder Chellealda Ritchie, INTERMODAL CUSTOMER SERVICE 04/10/2021 M75.41 Impingement syndrome of right sh lali Barrios, MSPT 04/06/2021 M75.41 Impingement syndrome of right sh lali Ritchie, INTERMODAL CUSTOMER SERVICE 04/01/2021 M75.41 Impingement syndrome of right sh oulder Alfonzo Ortolano, INTERMODAL CUSTOMER SERVICE 03/30/2021 M75.41 Impingement syndrome of right sh lali Ritchie, INTERMODAL CUSTOMER SERVICE 03/25/2021 M75.41 Impingement syndrome of right sh oulder Danae Scee P.T.A. 03/23/2021 M75.41 Impingement syndrome of right sh oulder Danae Scee P.T.A. 03/18/2021 M75.41 Impingement syndrome of right sh billlder Danae Scee P.T.A. 03/16/2021 M75.41 Impingement syndrome of right sh lali Barrios, MSPT 02/25/2021 M75.41 Impingement syndrome of right sh lali Barrios, MSPT 02/25/2021 M75.41 Impingement syndrome of right sh ireneer Nilesh Contreras, PA 02/18/2021 M75.41 Impingement syndrome of right sh lali Ritchie, INTERMODAL CUSTOMER SERVICE 02/11/2021 M75.41 Impingement syndrome of right sh lali Barrios, MSPT 02/06/2021 M75.41 Impingement syndrome of right sh lali Barrios, MSPT 01/30/2021 M75.41 Impingement syndrome of right sh lali Ritchie, INTERMODAL CUSTOMER SERVICE 01/28/2021 M75.41 Impingement syndrome of right sh lali Barrios, MSPT 01/26/2021 M75.41 Impingement syndrome of right sh billlder Nilesh Contreras, PA 01/23/2021 M75.41 Impingement syndrome of right sh oulder Charyrie Ortolano, INTERMODAL CUSTOMER SERVICE 01/20/2021 M75.41 Impingement syndrome of right sh oulder Danamarie Ortolano, INTERMODAL CUSTOMER SERVICE 01/14/2021 M75.41 Impingement syndrome of right sh billlder Alfonzo Arellano, INTERMODAL CUSTOMER SERVICE 01/09/2021 M75.41 Impingement syndrome of right sh ireneer Alfonzo Arellano, INTERMODAL CUSTOMER SERVICE 01/07/2021 M75.41 Impingement syndrome of right sh billlder Chelle Martinsbrian Ritchie, INTERMODAL CUSTOMER SERVICE 01/02/2021 M75.41 Impingement syndrome of right sh ireneer Davida Barrios, MSPT 12/10/2020 M75.41 Impingement syndrome of right sh lali ISMA Gonsales Plan of Treatment Future Appointment(s):* 05/15/2021 9:00 am - Davida Barrios, MSPT at Physical Therapy * 05/13/2021 9:30 am - Chelle Ritchie, INTERMODAL CUSTOMER SERVICE at Physical Therapy * 05/07/2021 9:30 am - Chelle Ritchie, INTERMODAL CUSTOMER SERVICE at Physical Therapy Functional Status Description No Information Available Mental Status Description No Information Available Referrals Refer to Dr Reason for Referral Status Appt Date Andrae Wilburn MD PT ALLOWED EVAL THEN NEEDS A [facility] (([phone]) TO PT DEPT. NT Closed [address] [place] [phone] Andrae Wilburn MD PT PER DELVIN AT [facility] APPROVAL F OR 12 VISITS ON RT SHOULDER TO PT DEPT. NT Created [address] [place] [phone] [phone] Andrae Wilburn MD PT BASED ON MED. [facility] TO PT DEPT. NT C reated [address] [place] [phone]
--- OUTSIDE RECORDS SUMMARY | 2021-06-24 11:44 | CCD | Continuity of Care Document ---
Author Author Melonie NGUYEN [facility] Organization Unknown Address [address] [phone] Phone [phone] Care Team Providers Care Brick Picker Name Role Phone Mary Salas MD [facility] [phone] Problems Active Problems Provider Date Type 2 [...] Metformin HCL 500mg Tablets Unknown Caltrate 600+D3 [id number] Tab lets 1 by mouth twice a [...] Available Procedures Date Code Description Status 05/07/2021 26463 Therapeutic Procedure, Each 15 M inutes Completed 05/05/2021 70006 Therapeutic Procedure, Each 15 M inutes Completed 04/30/2021 95891 Therapeutic Procedure, Each 15 M inutes Completed 04/28/2021 20868 Therapeutic Procedure, Each 15 M inutes Completed 04/23/2021 61519 Therapeutic Procedure, Each 15 M inutes Completed 04/20/2021 97234 Therapeutic Procedure, Each 15 M inutes Completed 04/17/2021 01943 Therapeutic Procedure, Each 15 M inutes Completed 04/13/2021 17660 Therapeutic Procedure, Each 15 M inutes Completed 04/10/2021 99812 Therapeutic Procedure, Each 15 M inutes Completed 04/06/2021 62988 Therapeutic Procedure, Each 15 M inutes Completed 04/01/2021 44765 Therapeutic Procedure, Each 15 M inutes Completed 03/30/2021 61128 Therapeutic Procedure, Each 15 M inutes Completed 03/25/2021 64600 Therapeutic Procedure, Each 15 M inutes Completed 03/23/2021 08924 Therapeutic Procedure, Each 15 M inutes Completed 03/18/2021 78603 Therapeutic Procedure, Each 15 M inutes Completed 03/16/2021 50150 Therapeutic Procedure, Each 15 M inutes Completed 02/25/2021 00042 Office/Outpatient Established Lo w MDM 20-29 Min Completed 02/25/2021 05484 Therapeutic Procedure, Each 15 M inutes Completed 02/25/2021 13568 Therapeutic Procedure, Each 15 M inutes Completed 02/18/2021 91500 Therapeutic Procedure, Each 15 M inutes Completed 02/18/2021 59691 Therapeutic Procedure, Each 15 M inutes Completed 02/11/2021 94329 Therapeutic Procedure, Each 15 M inutes Completed 02/11/2021 19214 Therapeutic Procedure, Each 15 M inutes Completed 02/06/2021 88401 Therapeutic Procedure, Each 15 M inutes Completed 02/06/2021 55586 Hot Or Cold Packs Completed 01/30/2021 96104 Therapeutic Procedure, Each 15 M inutes Completed 01/30/2021 06632 Therapeutic Procedure, Each 15 M inutes Completed 01/28/2021 05466 Therapeutic Procedure, Each 15 M inutes Completed 01/28/2021 51053 Therapeutic Procedure, Each 15 M inutes Completed 01/26/2021 49669 Office/Outpatient Established Lo w MDM 20-29 Min Completed 01/23/2021 50684 Therapeutic Procedure, Each 15 M inutes Completed 01/23/2021 72769 Therapeutic Procedure, Each 15 M inutes Completed 01/20/2021 51631 Therapeutic Procedure, Each 15 M inutes Completed 01/20/2021 49286 Therapeutic Procedure, Each 15 M inutes Completed 01/14/2021 13005 Therapeutic Procedure, Each 15 M inutes Completed 01/14/2021 18387 Therapeutic Procedure, Each 15 M inutes Completed 01/09/2021 04388 Therapeutic Procedure, Each 15 M inutes Completed 01/09/2021 33468 Therapeutic Procedure, Each 15 M inutes Completed 01/07/2021 25703 Therapeutic Procedure, Each 15 M inutes Completed 01/07/2021 71131 Therapeutic Procedure, Each 15 M inutes Completed 01/02/2021 09811 Physical Therapy Eval - Low Comp lexity Completed 12/10/2020 05586 Office/Outpatient New Low MDM 30 -44 Minutes Completed 12/10/2020 82383 X-Ray Humerus Two Views Complete d Medical Devices Description No Information Available Encounters Type Date Location Provider Dx Diagnosis Office Visit 02/25/2021 3:30p ChauvinISMA Pryor M75.41 Impingement syndrome of right shoulder Office Visit 01/26/2021 3:30p ISMA Dickson M75.41 Impingement syndrome of right shoulder Office Visit 12/10/2020 2:30p ChauvinISMA Pryor M75.41 Impingement syndrome of right shoulder Assessments Date Code Description Provider 05/07/2021 M75.41 Impingement syndrome of right sh ireneer Chelle Ritchie, LINER REROLL TENDER 05/05/2021 M75.41 Impingement syndrome of right sh lali Martinsbrian Ritchie, LINER REROLL TENDER 04/30/2021 M75.41 Impingement syndrome of right sh lali Martinsbrian Ritchie, LINER REROLL TENDER 04/28/2021 M75.41 Impingement syndrome of right sh lali Martinsbrian Ritchie, LINER REROLL TENDER 04/23/2021 M75.41 Impingement syndrome of right sh lali Martinsbrian Ritchie, LINER REROLL TENDER 04/20/2021 M75.41 Impingement syndrome of right sh billlder Chelle Ritchie, LINER REROLL TENDER 04/17/2021 M75.41 Impingement syndrome of right sh billlder Davida Barrios, MSPT 04/13/2021 M75.41 Impingement syndrome of right sh billlder Chelle Ritchie, LINER REROLL TENDER 04/10/2021 M75.41 Impingement syndrome of right sh billlder Davida Barrios, MSPT 04/06/2021 M75.41 Impingement syndrome of right sh billlder Chelle Ritchie, LINER REROLL TENDER 04/01/2021 M75.41 Impingement syndrome of right sh billlder Alfonzo Raolouisenena, LINER REROLL TENDER 03/30/2021 M75.41 Impingement syndrome of right sh billlder Chelle Ritchie, LINER REROLL TENDER 03/25/2021 M75.41 Impingement syndrome of right sh [facility] Danae Scee P.T.A. 03/23/2021 M75.41 [facility] Scee P.T.A. 03/18/2021 M75.41 [facility] Danae Scee P.T.A. 03/16/2021 M75.41 Impingement syndrome of right sh irene Davida Barrios, MSPT 02/25/2021 M75.41 Impingement syndrome of right sh lali Barrios, MSPT 02/25/2021 M75.41 Impingement syndrome of right sh [facility] Nilesh Contreras, PA 02/18/2021 M75.41 Impingement syndrome of right sh billldhayes Ritchie, LINER REROLL TENDER 02/11/2021 M75.41 Impingement syndrome of right sh lali Barrios, MSPT 02/06/2021 M75.41 Impingement syndrome of right sh lali Barrios, MSPT 01/30/2021 M75.41 Impingement syndrome of right sh lali Ritchie, LINER REROLL TENDER 01/28/2021 M75.41 Impingement syndrome of right sh lali Barrios, MSPT 01/26/2021 M75.41 Impingement syndrome of right sh ireneer Nilesh CadeMarley Contreras PA 01/23/2021 M75.41 Impingement syndrome of right sh billlder Charyrie Ortolano, LINER REROLL TENDER 01/20/2021 M75.41 Impingement syndrome of right sh oulder Humbleamarie Ortolano, LINER REROLL TENDER 01/14/2021 M75.41 Impingement syndrome of right sh oulder Danrhonarie Ortolano, LINER REROLL TENDER 01/09/2021 M75.41 Impingement syndrome of right sh oulder Charyrie Ortolano, LINER REROLL TENDER 01/07/2021 M75.41 Impingement syndrome of right sh ireneer Chelle Melonie Ritchie, LINER REROLL TENDER 01/02/2021 M75.41 Impingement syndrome of right sh ireneer Davida Barrios, MSPT 12/10/2020 M75.41 Impingement syndrome of right sh lali ISMA Gonsales Plan of Treatment Future Appointment(s):* 05/20/2021 9:30 am - Chelle Ritchie, LINER REROLL TENDER at Physical Therapy * 05/18/2021 11:00 am - MARCI ClaytonT at Physical Therapy * 05/15/2021 9:00 am - MARCI ClaytonT at Physical Therapy Functional Status Description No Information Available Mental Status Description No Information Available Referrals Refer to Dr Reason for Referral Status Appt Date Andrae Wilburn MD PT ALLOWED EVAL THEN NEEDS A [facility] (([phone]) TO PT DEPT. NT Closed [address] [place] [phone] Andrae Wilburn MD PT PER DELVIN AT [facility] APPROVAL F OR 12 VISITS ON RT SHOULDER TO PT DEPT. NT Created [address] [place] [phone] Andrae Wilburn MD PT BASED ON MED. [facility] TO PT DEPT. NT C reated [address] [place] [phone]
--- OUTSIDE RECORDS SUMMARY | 2021-06-24 11:44 | CCD | Continuity of Care Document ---
Author Author Melonie JOHNSON F.N.P. Organization Unknown Address [address], [address] [place] [address] Phone [phone] Care Team Providers Care Security Professionals Name Role Phone Mary Salas MD [facility] [phone] Problems Description No Information Available Social History Type Date Description Comments Sex Unknown ETOH Use Rarely consumes alcohol Tobacco Use Start: Unknown Patient has never smoked Sun Exposure moderate amount of sun exposure Sun Exposure Has never used tanning bed Sun Exposure Has experienced blistering from sunburns Sun Exposure Uses 15-30 SPF Allergies, Adverse Reactions, Alerts Description No Known Drug Allergies Medications Active Medications SIG Qnty Indications Ordering Provide r Date Centrum Silver 50+Women 50+Women T ablets Kelley Johnson, F.N.P. 2017 Levothyroxine Sodium Unknown Metformin HCL Unknown Vitamin D-3 Unknown Caltrate 600+D3 Soft Unknown Fish Oil Unknown Atorvastatin Calcium Unknown D3 High Potency Unknown 0 Lisinopril-Hydrochlorothiazide Unkno wn Immunizations Description No Information Available Vital Signs Date Vital Result Comment 05/18/2021 12:09pm BP Systolic 125 mmHg BP Diastolic 69 mmHg Weight 136.00 lb Height 66 inches 5'6" BMI (Body Mass Index) 21.9 kg/m2 03/18/2020 8:24am BP Systolic 122 mmHg BP Diastolic 64 mmHg Body Temperature 98.3 F Results Description No Information Available Procedures Date Code Description Status 05/18/2021 35040 Office/Outpatient Established Mo d MDM 30-39 Min Completed Medical Devices Description No Information Available Encounters Type Date Location Provider Dx Diagnosis Office Visit 05/18/2021 12:15p Main Office Kelley Johnson, F.N.P. 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 05/18/2021 D22.72 Melanocytic nevi of left lower l imb, including hip Kelley Johnson, F.N.P. 05/18/2021 L82.1 Other seborrheic keratosis Nicole ringilda Farah'padmini, F.N.P. 05/18/2021 L43.8 Other lichen planus Kelley washington, F.N.P. 05/18/2021 L40.0 Psoriasis vulgaris Kelley nazario F.N.P. 05/18/2021 L81.4 Other melanin hyperpigmentation Kelley Johnson, F.N.P. 05/18/2021 L85.8 Other specified epidermal thicke jd Kelley Johnson, F.N.P. 05/18/2021 Z12.83 Encounter for screening for mini gnant neoplasm of skin Kelley Johnson, F.N.P. Plan of Treatment Future Appointment(s):* 05/20/2022 11:30 am - Kelley Johnson, F.N.P. at Main Office 05/18/2021 - Kelley Johnson, F.N.P.* D22.71 Melanocytic nevi of right lower limb, including hip* Comments:* Nevus located on R leg appear healthy. Monitor for changes. Should any moles change in shape or color, itch, bleed or burn patient instructed to call office for evaluation sooner than their interval appointment. * D22.72 Melanocytic nevi of left lower limb, including hip* Comments:* Nevus L leg appear healthy. Monitor for changes. Should any moles change in shape or color, itch, bleed or burn, patient instructed to contact office for e valuation sooner than their interval appointment. * L82.1 Other seborrheic keratosis* Comments:* Reassurance Knows if ever becomes irritated to call for a removal appointment * L43.8 Other lichen planus* Comments:* Reassurance * L40.0 Psoriasis vulgaris* Comments:* Reassurance * L81.4 Other melanin hyperpigmentation* Comments:* Solar lentigines - ReassuranceSunscreen use and sun protection discussed. * L85.8 Other specified epidermal thickening* Comments:* Nonsymptomatic. Reassurance. Knows if ever becomes irritated or catches on clothing we can remove in the future * Z12.83 Encounter for screening for malignant neoplasm of skin* Comments:* See above * Follow up:* Yearly/PRN - [facility] Functional Status Description No Information Available Mental Status Description No Information Available Referrals Description No Information Available
--- OUTSIDE RECORDS SUMMARY | 2021-06-24 11:45 | CCD | Continuity of Care Document ---
Author Melonie Galaviz [facility] Organization Unknown Address [address] [place] [address] Phone [phone] Care Team Providers Care Bearing Inspector Name Role Phone Mary Salas MD [facility] [phone] Problems Active Problems Provider Date Type 2 [...] Metformin HCL 500mg Tablets Unknown Caltrate 600+D3 [id number] Tab lets 1 by mouth twice a [...] Information Available Procedures Date Code Description Status 04/20/2021 11045 Therapeutic Procedure, Each 15 M inutes Completed 04/17/2021 52390 Therapeutic Procedure, Each 15 M inutes Completed 04/13/2021 13301 Therapeutic Procedure, Each 15 M inutes Completed 04/10/2021 11936 Therapeutic Procedure, Each 15 M inutes Completed 04/06/2021 99695 Therapeutic Procedure, Each 15 M inutes Completed 04/01/2021 02732 Therapeutic Procedure, Each 15 M inutes Completed 03/30/2021 51305 Therapeutic Procedure, Each 15 M inutes Completed 03/25/2021 97152 Therapeutic Procedure, Each 15 M inutes Completed 03/23/2021 19543 Therapeutic Procedure, Each 15 M inutes Completed 03/18/2021 77042 Therapeutic Procedure, Each 15 M inutes Completed 03/16/2021 23266 Therapeutic Procedure, Each 15 M inutes Completed 02/25/2021 15186 Office/Outpatient Established Lo w MDM 20-29 Min Completed 02/25/2021 46790 Therapeutic Procedure, Each 15 M inutes Completed 02/25/2021 09622 Therapeutic Procedure, Each 15 M inutes Completed 02/18/2021 60225 Therapeutic Procedure, Each 15 M inutes Completed 02/18/2021 40009 Therapeutic Procedure, Each 15 M inutes Completed 02/11/2021 44305 Therapeutic Procedure, Each 15 M inutes Completed 02/11/2021 80344 Therapeutic Procedure, Each 15 M inutes Completed 02/06/2021 03021 Hot Or Cold Packs Completed 02/06/2021 40396 Therapeutic Procedure, Each 15 M inutes Completed 01/30/2021 79955 Therapeutic Procedure, Each 15 M inutes Completed 01/30/2021 04306 Therapeutic Procedure, Each 15 M inutes Completed 01/28/2021 76568 Therapeutic Procedure, Each 15 M inutes Completed 01/28/2021 40899 Therapeutic Procedure, Each 15 M inutes Completed 01/26/2021 37551 Office/Outpatient Established Lo w MDM 20-29 Min Completed 01/23/2021 88540 Therapeutic Procedure, Each 15 M inutes Completed 01/23/2021 82231 Therapeutic Procedure, Each 15 M inutes Completed 01/20/2021 10476 Therapeutic Procedure, Each 15 M inutes Completed 01/20/2021 72361 Therapeutic Procedure, Each 15 M inutes Completed 01/14/2021 03721 Therapeutic Procedure, Each 15 M inutes Completed 01/14/2021 84638 Therapeutic Procedure, Each 15 M inutes Completed 01/09/2021 18908 Therapeutic Procedure, Each 15 M inutes Completed 01/09/2021 51315 Therapeutic Procedure, Each 15 M inutes Completed 01/07/2021 40792 Therapeutic Procedure, Each 15 M inutes Completed 01/07/2021 35259 Therapeutic Procedure, Each 15 M inutes Completed 01/02/2021 51051 Physical Therapy Eval - Low Comp lexity Completed 12/10/2020 73735 Office/Outpatient [facility] 30 -44 Minutes Completed 12/10/2020 13062 X-Ray Humerus Two Views Complete d Medical Devices Description No Information Available Encounters Type Date Location Provider Dx Diagnosis Office Visit 02/25/2021 3:30p ISMA Dickson M75.41 Impingement syndrome of right shoulder Office Visit 01/26/2021 3:30p ISMA Dickson M75.41 Impingement syndrome of right shoulder Office Visit 12/10/2020 2:30p ISMA Dickson M75.41 Impingement syndrome of right shoulder Assessments Date Code Description Provider 04/20/2021 M75.41 Impingement syndrome of right sh irene hCelle Melonie Ritchie, BRIM FLEXER 04/17/2021 M75.41 Impingement syndrome of right sh [facility] Davida Barrios, [facility] 04/13/2021 M75.41 Impingement syndrome of right sh irene Chelle Melonie Ritchie, BRIM FLEXER 04/10/2021 M75.41 Impingement syndrome of right sh [facility] Davida Barrios, MSPT 04/06/2021 M75.41 Impingement syndrome of right sh lali Corbett Melonie Ritchie, BRIM FLEXER 04/01/2021 M75.41 Impingement syndrome of right sh lali Alfonzo Arellano, BRIM FLEXER 03/30/2021 M75.41 Impingement syndrome of right sh lali Martinsbrian Ritchie, BRIM FLEXER 03/25/2021 M75.41 Impingement syndrome of right sh billhayes Danae Sesay P.T.AMarley 03/23/2021 M75.41 Impingement syndrome of right sh billlder Danae Avnie P.T.A. 03/18/2021 M75.41 Impingement syndrome of right sh billlder Danae Sesay P.T.A. 03/16/2021 M75.41 Impingement syndrome of right sh billldhayes Barrios, MSPT 02/25/2021 M75.41 Impingement syndrome of right sh billlder Davida Barrios, MSPT 02/25/2021 M75.41 Impingement syndrome of right sh lali ISMA Gonsales 02/18/2021 M75.41 Impingement syndrome of right sh billlder Chelle Martinsbrian Ritchie, BRIM FLEXER 02/11/2021 M75.41 Impingement syndrome of right sh ireneer Davida Barrios, MSPT 02/06/2021 M75.41 Impingement syndrome of right sh lali Barrios, MSPT 01/30/2021 M75.41 Impingement syndrome of right sh ireneer Chelle Martinsbrian Ritchie, BRIM FLEXER 01/28/2021 M75.41 Impingement syndrome of right sh ireneer Davida Barrios, MSPT 01/26/2021 M75.41 Impingement syndrome of right sh lali Nilesh Contreras, ISMA 01/23/2021 M75.41 Impingement syndrome of right sh billlder Charyrie Ortolano, BRIM FLEXER 01/20/2021 M75.41 Impingement syndrome of right sh oulder Danamarie Ortolano, BRIM FLEXER 01/14/2021 M75.41 Impingement syndrome of right sh oulder Danamarie Ortolano, BRIM FLEXER 01/09/2021 M75.41 Impingement syndrome of right sh billlder Danamarie Ortolano, BRIM FLEXER 01/07/2021 M75.41 Impingement syndrome of right sh ireneer Chelle Martinsn Ritchie, BRIM FLEXER 01/02/2021 M75.41 Impingement syndrome of right sh lali Barrios, MSPT 12/10/2020 M75.41 Impingement syndrome of right sh billlder ISMA Gonsales Plan of Treatment Future Appointment(s):* 04/30/2021 9:30 am - Chelle Ritchie BRIM FLEXER at Physical Therapy * 04/28/2021 9:30 am - Chelle Ritchie BRIM FLEXER at Physical Therapy Functional Status Description No Information Available Mental Status Description No Information Available Referrals Refer to Reason for Referral Status Appt Date Andrae Wilburn MD PT ALLOWED EVAL THEN NEEDS A [facility] (([phone]) TO PT DEPT. NT Closed [address] [place], [place] [phone] Andrae Wilburn MD PT PER DELVIN AT R APPROVAL F OR 12 VISITS ON RT SHOULDER TO PT DEPT. NT Created [address] [place] [phone] Andrae Wilburn MD PT BASED ON MED. [facility] TO PT DEPT. NT C reated [address] [place] [phone]
--- OUTSIDE RECORDS SUMMARY | 2021-06-24 11:45 | CCD | Continuity of Care Document ---
Author Author Melonie BARRIOS MSPT Organization Unknown Address [address] [place] [address] Phone [phone] Care Team Providers Care Claims Assistant Name Role Phone Mary Salas MD AUTM [phone] Problems Active Problems Provider Date Type 2 [...] Metformin HCL 500mg Tablets Unknown Caltrate 600+D3 898-018gr-Ehnc Tab lets 1 by mouth twice a [...] Information Available Procedures Date Code Description Status 04/23/2021 77908 Therapeutic Procedure, Each 15 M inutes Completed 04/20/2021 19885 Therapeutic Procedure, Each 15 M inutes Completed 04/17/2021 45102 Therapeutic Procedure, Each 15 M inutes Completed 04/13/2021 92294 Therapeutic Procedure, Each 15 M inutes Completed 04/10/2021 32894 Therapeutic Procedure, Each 15 M inutes Completed 04/06/2021 73636 Therapeutic Procedure, Each 15 M inutes Completed 04/01/2021 31453 Therapeutic Procedure, Each 15 M inutes Completed 03/30/2021 57416 Therapeutic Procedure, Each 15 M inutes Completed 03/25/2021 18053 Therapeutic Procedure, Each 15 M inutes Completed 03/23/2021 90651 Therapeutic Procedure, Each 15 M inutes Completed 03/18/2021 94651 Therapeutic Procedure, Each 15 M inutes Completed 03/16/2021 58281 Therapeutic Procedure, Each 15 M inutes Completed 02/25/2021 01138 Office/Outpatient Established Lo w MDM 20-29 Min Completed 02/25/2021 06873 Therapeutic Procedure, Each 15 M inutes Completed 02/25/2021 09644 Therapeutic Procedure, Each 15 M inutes Completed 02/18/2021 74514 Therapeutic Procedure, Each 15 M inutes Completed 02/18/2021 23260 Therapeutic Procedure, Each 15 M inutes Completed 02/11/2021 77876 Therapeutic Procedure, Each 15 M inutes Completed 02/11/2021 71486 Therapeutic Procedure, Each 15 M inutes Completed 02/06/2021 32561 Therapeutic Procedure, Each 15 M inutes Completed 02/06/2021 54875 Hot Or Cold Packs Completed 01/30/2021 50126 Therapeutic Procedure, Each 15 M inutes Completed 01/30/2021 27523 Therapeutic Procedure, Each 15 M inutes Completed 01/28/2021 02165 Therapeutic Procedure, Each 15 M inutes Completed 01/28/2021 09875 Therapeutic Procedure, Each 15 M inutes Completed 01/26/2021 49591 Office/Outpatient Established Lo w MDM 20-29 Min Completed 01/23/2021 78270 Therapeutic Procedure, Each 15 M inutes Completed 01/23/2021 47998 Therapeutic Procedure, Each 15 M inutes Completed 01/20/2021 52934 Therapeutic Procedure, Each 15 M inutes Completed 01/20/2021 13571 Therapeutic Procedure, Each 15 M inutes Completed 01/14/2021 18340 Therapeutic Procedure, Each 15 M inutes Completed 01/14/2021 43337 Therapeutic Procedure, Each 15 M inutes Completed 01/09/2021 20625 Therapeutic Procedure, Each 15 M inutes Completed 01/09/2021 55903 Therapeutic Procedure, Each 15 M inutes Completed 01/07/2021 70598 Therapeutic Procedure, Each 15 M inutes Completed 01/07/2021 34818 Therapeutic Procedure, Each 15 M inutes Completed 01/02/2021 60584 Physical Therapy Eval - Low Comp lexity Completed 12/10/2020 18928 Office/Outpatient New Low [facility] 30 -44 Minutes Completed 12/10/2020 55855 X-Ray Humerus Two Views Complete d Medical Devices Description No Information Available Encounters Type Date Location Provider Dx Diagnosis Office Visit 02/25/2021 3:30p ISMA Dickson M75.41 Impingement syndrome of right shoulder Office Visit 01/26/2021 3:30p ISMA Dickson M75.41 Impingement syndrome of right shoulder Office Visit 12/10/2020 2:30p ISMA Dickson M75.41 Impingement syndrome of right shoulder Assessments Date Code Description Provider 04/23/2021 M75.41 Impingement syndrome of right sh lali Martinsbrian Ritchie, FAIRING MAN 04/20/2021 M75.41 Impingement syndrome of right sh lali Segundoalda Ritchie, FAIRING MAN 04/17/2021 M75.41 Impingement syndrome of right sh irenehayes Davida Barrios, MSPT 04/13/2021 M75.41 Impingement syndrome of right sh lali Chelle Melonie Ritchie, FAIRING MAN 04/10/2021 M75.41 Impingement syndrome of right sh irenehayes Davida Barrios, MSPT 04/06/2021 M75.41 Impingement syndrome of right sh lali Corbett Melonie Ritchie, FAIRING MAN 04/01/2021 M75.41 Impingement syndrome of right sh lali Alfonzo Arellano, FAIRING MAN 03/30/2021 M75.41 Impingement syndrome of right sh lali Martinsbrian Ritchie, FAIRING MAN 03/25/2021 M75.41 Impingement syndrome of right sh billlder Danae Hollye P.T.A. 03/23/2021 M75.41 Impingement syndrome of right sh oulder Danae Scee P.T.A. 03/18/2021 M75.41 Impingement syndrome of right sh billlder Danae Hollye P.T.A. 03/16/2021 M75.41 Impingement syndrome of right sh ireneer Davida Barrios, MSPT 02/25/2021 M75.41 Impingement syndrome of right sh ireneer Davida Barrios, MSPT 02/25/2021 M75.41 Impingement syndrome of right sh billlder Nilesh Contreras, PA 02/18/2021 M75.41 Impingement syndrome of right sh lali Martinsbrian Ritchie, FAIRING MAN 02/11/2021 M75.41 Impingement syndrome of right sh lali Barrios, MSPT 02/06/2021 M75.41 Impingement syndrome of right sh lali Barrios, MSPT 01/30/2021 M75.41 Impingement syndrome of right sh lali Martinsbrian Ritchie, FAIRING MAN 01/28/2021 M75.41 Impingement syndrome of right sh lali Barrios, MSPT 01/26/2021 M75.41 Impingement syndrome of right sh oulder Nilesh Contreras, PA 01/23/2021 M75.41 Impingement syndrome of right sh billlder Danamarie Ortolano, FAIRING MAN 01/20/2021 M75.41 Impingement syndrome of right sh oulder Danamarie Ortolano, FAIRING MAN 01/14/2021 M75.41 Impingement syndrome of right sh oulder Danamarie Ortolano, FAIRING MAN 01/09/2021 M75.41 Impingement syndrome of right sh oulder Danamarie Ortolano, FAIRING MAN 01/07/2021 M75.41 Impingement syndrome of right sh lali Martinsbrian Ritchie, FAIRING MAN 01/02/2021 M75.41 Impingement syndrome of right sh lali Davida BernardinoMarley Barrios, MSPT 12/10/2020 M75.41 Impingement syndrome of right sh ISMA Weinstein Plan of Treatment Future Appointment(s):* 04/30/2021 9:30 am - Chelle Ritchie, FAIRING MAN at Physical Therapy * 04/28/2021 9:30 am - Chelle Ritchie FAIRING MAN at Physical Therapy Functional Status Description No Information Available Mental Status Description No Information Available Referrals Refer to Reason for Referral Status Appt Date Andrae Wilburn MD PT ALLOWED EVAL THEN NEEDS A [facility] (([phone]) TO PT DEPT. NT Closed [address] [place], [place] [address] [phone] Andrae Wilburn MD PT PER DELVIN AT [facility] APPROVAL F OR 12 VISITS ON RT SHOULDER TO PT DEPT. NT Created [address] [place] [address] [phone] Andrae Wilburn MD PT BASED ON MED. [facility] TO PT DEPT. NT C reated [address] [place] [address] [phone]
--- OUTSIDE RECORDS SUMMARY | 2021-06-24 11:45 | CCD | Continuity of Care Document ---
Author Author Melonie Salas M.D. Organization Unknown Address [address] [address] Phone [phone] Care Team Providers Care Nurse Practitioner Adult Name Role Phone Mary Salas MD AUTM [phone] Problems Active Problems Provider Date Essential hypertension Evelia Hoff FNP Onset: 09/21/2011 Hypothyroidism Evelia Hoff FNP Onset: 09/21/2011 Type 2 diabetes mellitus Evelia Hoff FNP Onset: 09/21/19 12 Pure hypercholesterolemia Evelia Hoff FNP Onset: 012 Iron deficiency anemia Evelia Hoff FNP Onset: 09/21/2011 Peripheral venous insufficiency SUPRIYA Frank Onset: 0 09/21/2011 Hypomagnesemia Mary Salas M.D. Onset: 8 Osteopenia Mary Salas M.D. Onset: 8 Social History Type Date Description Comments Sex Unknown ETOH Use Rarely consumes alcohol Tobacco Use Start: Unknown Patient has never smoked Allergies, Adverse Reactions, Alerts Description No Known Drug Allergies Medications Active Medications SIG Qnty Indications Ordering Provide r Date Fish Oil 1000mg Capsules 1 by mouth every day Mary Salas M.D. 07/21/20 15 Metformin HCL ER 500mg Tablets ER 24HR take 1 1/2 - 2 tablets twice a day 360tabs Mary benson M.D. 12/18/2014 Atorvastatin Calcium 40mg Tablets Take 1 Tablet Daily 90tabs Mary Salas M.D. 09/26/19 14 Caltrate 600+D 550-204fs-Lvgz Tablets qd Mary Salas M.D. 03/29/2013 Vitamin D-3 2000Unit Tablets 1 po qd Evelia Hoff FNP 03/22/2012 Levothyroxine Sodium 88mcg Tablets Take 1 Tablet Daily 90tabs Mary Salas M.D. 03/20/20 12 Multi-Vitamin Tablets 1 po q d Evelia Hoff FNP 03/29/2011 Lisinopril-Hydrochlorothiazide 10-12.5mg Tablets Take 1 Tablet Daily 90tabs Ailin Larson 08/31/2006 Elocon 0.1% antonieta ly to affected areas qd prn shashi 45gm Evelia Hoff FNP 10/22/2003 History Medications Meloxicam 15mg Tablets 1 by mouth every day ortho Mary Salas M.D. 01/27/20 21 - 04/21/2021 Immunizations CPT Code Status Date Vaccine Lot # [id number] Given 04/21/2021 Adacel- Tetanus Diphtheria P ertussis (Age64 & Under) [id number] U-Flu Given 05/23/2020 Influenza,Unspecified 58018 Given 01/02/2019 Shingrix 52866 Given 10/25/2018 Shingrix 15047 Given 03/29/2013 Pneumovax 23 [id number] 13024 Given 03/29/2011 Tetanus/Diptheria(Td)Toxoids Preservative Free [id number] 30975 Given 09/03/2008 Zoster Vaccine 13899 Given 03/01/2006 Pneumovax 23 46241 Refused 06/06/2018 Influenza Virus Vaccine, Quadrivalent (Cciiv4), Derived From Cell Vital Signs Date Vital Result Comment 04/21/2021 12:51pm BP Systolic 122 mmHg RT Arm BP Diastolic 64 mmHg RT Arm Heart Rate 92 /min Height 65.75 inches 5'5.75" Weight 136.00 lb BMI (Body Mass Index) 22.1 kg/m2 01/22/2021 2:29pm BP Systolic 132 mmHg RT Arm BP Diastolic 64 mmHg RT Arm Heart Rate 76 /min Height 65.75 inches 5'5.75" Weight 139.50 lb BMI (Body Mass Index) 22.7 kg/m2 Results Test Acquired Date Facility Test Result H/L Range Note Complete Blood Count 04/21/2021 [place] [facility] Washer Machine: [place] [address] [phone] WBC 6.7 x10*3/UL 4.1 - 10.9 RBC 4.46 x10*6/UL 4.20 - 6.30 Hemoglobin 13.7 g/dL 12.0 - 18.0 Hematocrit 39.5 % 37.0 - 51.0 MCV 88.4 fL 80.0 - 97.0 MCH 30.7 pg 26.0 - 32.0 MCHC 34.7 g/dL 31.0 - 38.0 RDW 12.7 % 11.6 - 13.7 PLT 230 x10*3/UL 140 - 440 MPV 8.9 FL 7.8 - 11.0 Lymph % 24.4 % 10.0 - 58.5 Mid % 5.8 % 1.7 - 9.3 Neut % 69.8 % 37.0 - 92.0 Lymph # 1.6 x10*3/UL 0.6 - 4.1 Mid # 0.4 x10*3/UL 0.1 - 0.6 Neut # 4.7 x10*3/UL 2.0 - 7.8 Laboratory test finding 04/21/2021 [place] [facility] parvez amaya Washer Machine: Dr Samir Hernandez [place], [place] [id number] [phone] Creatine Kinase(CK) 40 U/L 26 - 192 A1c 04/21/2021 [place] [facility] Washer Machine: [place] [address] [phone] Hba1c 7.1 % High <5.7 1 Est Avg Glucose 157 mg/dL High 60 - 110 Laboratory test finding 04/21/2021 [place] [facility] [employer] parvez amaya Washer Machine: [place] [address] [phone] Magnesium 1.8 mg/dL 1.8 - 2.4 Comprehensive Chem Profile 04/21/2021 [place] [facility] Washer Machine: [place] [address] [phone] Glucose 153 mg/dL High 74 - 99 2 BUN 18 mg/dL 7 - 18 Creatinine 0.9 mg/dL 0.6 - 1.3 Sodium 138 mEq/L 136 - 145 Potassium 4.5 mEq/L 3.5 - 5.1 Chloride 101 mEq/L 98 - 107 Carbon Dioxide 30 mEq/L 21 - 32 Calcium 9.7 mg/dL 8.5 - 10.1 Alk. Phosphatase 58 mg/dL 46 - 116 Total Bilirubin 1.1 mg/dL High 0.2 - 1.0 Ast (Sgot) 14 U/L Low 15 - 37 Alt (SGPT) 31 U/L 12 - 78 Albumin 4.1 g/dL 3.4 - 5.0 Total Protein 6.8 g/dL 6.4 - 8.2 A/G Ratio 1.52 CALC 1.00 - 1.90 GFR >= 60 mL/min >60 GFR >= 60 mL/min >60 3 Lipid Profile 04/21/2021 [place] [facility] Washer Machine: [place] [address] [phone] Cholesterol 139 mg/dL 131 - 200 Triglycerides 101 mg/dL 30 - 150 HDL Cholesterol 51 mg/dL 35 - 60 LDL (Calculated) 68 CALC 50 - 159 Laboratory test finding 04/21/2021 [place] [facility] shirley, Washer Machine: Dr Samir Steinberg [id number] [phone] Thyroid Stimulating Hormone 1.26 uIU/mL 0.3 6 - 3.74 Ua Dipstick Only 04/21/2021 [place] [facility] , Was[facility] Machine: Dr Samir Steinberg [place] [address] [phone] Urine Color STRAW Abnormal Yellow Urine Appearance CLEAR Clear Urine PH 7.5 units 5.0 - 9.0 Urine Specific Thayer 1.010 1.005 - 1.030 Urine Leukocytes NEGATIVE Negative Urine Blood NEGATIVE Negative Urine Protein NEGATIVE Negative -Trace Urine Glucose NEGATIVE mg/dL Negative Urine Nitrite NEGATIVE Negative Urine Ketone NEGATIVE mg/dL Negative Urine Bilirubin NEGATIVE Negative Urine Urobilinogen 0.2 mg/dL 0.2 - 1.0 Microalbumin/Creatinine Urine 04/21/2021 [place] [facility], Washer Machine: Dr Samir Steinberg [place] [id number] [phone] Microalbumin Urine 3.8 mg/L 1.3 - 20.0 Urine Creatinine 57.4 mg/dL 30.0 - 125.0 Microalb/Creat Ratio 6.6 ug/mg 0.0 - 30.0 A1c 01/22/2021 [facility] Washer Machine: [place] [address] [phone] Hba1c 6.9 % High <5.7 4 Est Avg Glucose 151 mg/dL High 60 - 110 Basic Metabolic Panel 01/22/2021 [facility] Washer Machine: [place] [address] [phone] Glucose 189 mg/dL High 74 - 99 5 BUN 35 mg/dL High 7 - 18 Creatinine 0.8 mg/dL 0.6 - 1.3 Sodium 139 mEq/L 136 - 145 Potassium 4.1 mEq/L 3.5 - 5.1 Chloride 101 mEq/L 98 - 107 Carbon Dioxide 30 mEq/L 21 - 32 Calcium 9.6 mg/dL 8.5 - 10.1 GFR >= 60 mL/min >60 GFR >= 60 mL/min >60 6 1 Lab Result Notes: Pre-Diabetes 5.7 - 6.4 % Diabetes = or > 6.5% 2 100-125 mg/dL PRE-DIABET ES/FASTING >126 mg/dL DIABETES/FASTING 3 CHRONIC KIDNEY DISEASE STAGI NG PER NKF STAGE I & II GFR >= 60 NORMAL TO MILDLY DECREASED STAGE III GFR 30-59 MODERATELY DECREASED STAGE IV GFR 15-29 SEVERELY DECREASED STAGE V GFR <15 VERY LITTLE GFR LEFT ESRD GFR <15 ON PARLIAMENTARY COUNSEL 4 Lab Result Notes: Pre-Diabetes 5.7 - 6.4 % Diabetes = or > 6.5% 5 100-125 mg/dL PRE-DIABET ES/FASTING >126 mg/dL DIABETES/FASTING 6 CHRONIC KIDNEY DISEASE STAGI NG PER NKF STAGE I & II GFR >= 60 NORMAL TO MILDLY DECREASED STAGE III GFR 30-59 MODERATELY DECREASED STAGE IV GFR 15-29 SEVERELY DECREASED STAGE V GFR <15 VERY LITTLE GFR LEFT ESRD GFR <15 ON PARLIAMENTARY COUNSEL Procedures Date Code Description Status 01/22/2021 22772 Office/Outpatient Established Mo d MDM 30-39 Min Completed 06/07/2020 556450736 Diabetic Retinal Eye Exam Comple piedad 04/18/2020 406104926 Bone Mineral Density Test Comple piedad 04/18/2020 90544477 Mammogram Completed 04/13/2019 33575552 Mammogram Completed 03/21/2018 475893526 Diabetic Retinal Eye Exam Comple piedad 12/26/2017 225705121 Bone Mineral Density Test Comple piedad 12/26/2017 42537343 Mammogram Completed 10/24/2017 25028632 Colonoscopy Completed 10/25/2016 82089429 Mammogram Completed 05/02/2015 363271848 Bone Mineral Density Test Comple piedad 05/02/2015 67602061 Mammogram Completed 05/01/2014 19937053 Mammogram Completed 04/30/2013 94176659 Mammogram Completed 10/25/2012 [id number] Colonoscopy Completed 04/28/2012 63800863 Mammogram Completed 04/27/2011 77695298 Mammogram Completed 04/27/2011 476053739 Bone Mineral Density Test Comple piedad 04/20/2010 02911631 Mammogram Completed 04/18/2009 760327062 Bone Mineral Density Test Comple piedad 05/30/2006 19908598 Colonoscopy Completed Medical Devices Description No Information Available Encounters Type Date Location Provider Dx Diagnosis Office Visit 01/22/2021 2:30p [facility] Jm Salas M.D. E11.9 Type 2 diabetes mellitus wit hout complications I10 Essential (primary) hyperten migel M25.511 Pain in right shoulder M15.9 Polyosteoarthritis, unspecif ied I87.2 Venous insufficiency (chroni c) (peripheral) M85.9 Disorder of bone density and structure, unspecified Z86.010 Personal history of colonic polyps Assessments Date Code Description Provider 04/21/2021 E11.9 Type 2 diabetes mellitus without complications Mary Salas M.D. 04/21/2021 I10 Essential (primary) hypertension Mary Salas M.D. 04/21/2021 E78.00 Pure hypercholesterolemia, unspe cified Mary Salas M.D. 04/21/2021 M85.9 Disorder of bone density and str ucture, unspecified Mary Salas M.D. 04/21/2021 Z86.010 Personal history of colonic poly ps Mary Salas M.D. 04/21/2021 I87.2 Venous insufficiency (chronic) ( peripheral) Mary Salas M.D. 04/21/2021 M25.511 Pain in right shoulder Mary Salas M.D. 04/21/2021 L43.9 Lichen planus, unspecified Mary Salas M.D. 01/22/2021 E11.9 Type 2 diabetes mellitus without complications Mary Salas M.D. 01/22/2021 I10 Essential (primary) hypertension Mary Salas M.D. 01/22/2021 M25.511 Pain in right shoulder Mary Salas M.D. 01/22/2021 M15.9 Polyosteoarthritis, unspecified Mary Salas M.D. 01/22/2021 I87.2 Venous insufficiency (chronic) ( peripheral) Mary Salas M.D. 01/22/2021 M85.9 Disorder of bone density and str ucture, unspecified Mary Salas M.D. 01/22/2021 Z86.010 Personal history of colonic poly ps Mary Salas M.D. Plan of Treatment Future Appointment(s):* 10/22/2021 8:30 am - [facility] at [facility] 04/21/2021 - Mary Salas M.D.* E11.9 Type 2 diabetes mellitus without complications * I10 Essential (primary) hypertension * E78.00 Pure hypercholesterolemia, unspecified * M85.9 Disorder of bone density and structure, unspecified * Z86.010 Personal history of colonic polyps * I87.2 Venous insufficiency (chronic) (peripheral) * M25.511 Pain in right shoulder * L43.9 Lichen planus, unspecified * All * Comments:* Health Maintenance. Colonoscopy was 2018, needs 1 more for a benign polyp. Mammogram order is done. Bone density was last year. Pap's are not indicated. She's had the COVID vaccine, both pneumonia shots and Shingles shot. Annual Flu shot is recommended. Adacel is due will be administered. COVID safety is discussed as well as diet/exercise, Calcium and BSE. Functional Status Description No Information Available Mental Status Description No Information Available Referrals Refer to Reason for Referral Status Appt Date [facility] CONSULT FOR RT SHOULDER PAIN [facility] [address] [place] [address] [phone]
--- OUTSIDE RECORDS SUMMARY | 2021-06-24 11:45 | CCD | Continuity of Care Document ---
Author Melonie Galaviz [facility] Organization Unknown Address [address] [place] [address] Phone [phone] Care Team Providers Care Business Development Director Name Role Phone Mary aSlas MD [facility] [phone] Problems Active Problems Provider Date Type 2 [...] Metformin HCL 500mg Tablets Unknown Caltrate 600+D3 [id number]-Pbge Tab lets 1 by mouth twice a [...] Available Procedures Date Code Description Status 04/20/2021 62696 Therapeutic Procedure, Each 15 M inutes Completed 04/17/2021 95678 Therapeutic Procedure, Each 15 M inutes Completed 04/13/2021 64956 Therapeutic Procedure, Each 15 M inutes Completed 04/10/2021 49401 Therapeutic Procedure, Each 15 M inutes Completed 04/06/2021 75360 Therapeutic Procedure, Each 15 M inutes Completed 04/01/2021 04115 Therapeutic Procedure, Each 15 M inutes Completed 03/30/2021 94793 Therapeutic Procedure, Each 15 M inutes Completed 03/25/2021 09157 Therapeutic Procedure, Each 15 M inutes Completed 03/23/2021 55851 Therapeutic Procedure, Each 15 M inutes Completed 03/18/2021 23452 Therapeutic Procedure, Each 15 M inutes Completed 03/16/2021 85708 Therapeutic Procedure, Each 15 M inutes Completed 02/25/2021 29405 Office/Outpatient Established Lo w MDM 20-29 Min Completed 02/25/2021 08024 Therapeutic Procedure, Each 15 M inutes Completed 02/25/2021 51043 Therapeutic Procedure, Each 15 M inutes Completed 02/18/2021 17815 Therapeutic Procedure, Each 15 M inutes Completed 02/18/2021 99191 Therapeutic Procedure, Each 15 M inutes Completed 02/11/2021 11041 Therapeutic Procedure, Each 15 M inutes Completed 02/11/2021 44792 Therapeutic Procedure, Each 15 M inutes Completed 02/06/2021 13934 Hot Or Cold Packs Completed 02/06/2021 22960 Therapeutic Procedure, Each 15 M inutes Completed 01/30/2021 91900 Therapeutic Procedure, Each 15 M inutes Completed 01/30/2021 69458 Therapeutic Procedure, Each 15 M inutes Completed 01/28/2021 61509 Therapeutic Procedure, Each 15 M inutes Completed 01/28/2021 03336 Therapeutic Procedure, Each 15 M inutes Completed 01/26/2021 42894 Office/Outpatient Established Lo w MDM 20-29 Min Completed 01/23/2021 99270 Therapeutic Procedure, Each 15 M inutes Completed 01/23/2021 49961 Therapeutic Procedure, Each 15 M inutes Completed 01/20/2021 09340 Therapeutic Procedure, Each 15 M inutes Completed 01/20/2021 73683 Therapeutic Procedure, Each 15 M inutes Completed 01/14/2021 10642 Therapeutic Procedure, Each 15 M inutes Completed 01/14/2021 75624 Therapeutic Procedure, Each 15 M inutes Completed 01/09/2021 51884 Therapeutic Procedure, Each 15 M inutes Completed 01/09/2021 87675 Therapeutic Procedure, Each 15 M inutes Completed 01/07/2021 98556 Therapeutic Procedure, Each 15 M inutes Completed 01/07/2021 67730 Therapeutic Procedure, Each 15 M inutes Completed 01/02/2021 73771 Physical Therapy Eval - Low Comp lexity Completed 12/10/2020 56579 Office/Outpatient [facility] 30 -44 Minutes Completed 12/10/2020 47546 X-Ray Humerus Two Views Complete d Medical [...] of right sh irene Chelle Melonie Ritchie, GREEN END WORKER 04/17/2021 M75.41 Impingement syndrome of right [facility] Davida Barrios, [facility] 04/13/2021 M75.41 Impingement syndrome of right sh irene Chelle Melonie Ritchie, GREEN END WORKER 04/10/2021 M75.41 Impingement syndrome of right [facility] Davida Barrios, MSPT 04/06/2021 M75.41 Impingement syndrome of right sh lali Corbett Melonie Ritchie, GREEN END WORKER 04/01/2021 M75.41 Impingement syndrome of right sh lali Alfonzo Arellano, GREEN END WORKER 03/30/2021 M75.41 Impingement syndrome of right sh lali Martinsbrian Ritchie, GREEN END WORKER 03/25/2021 M75.41 Impingement syndrome of right sh [...] of right sh billlder Chelle Martinsbrian Ritchie, GREEN END WORKER 02/11/2021 M75.41 Impingement syndrome of right sh ireneer Davida Barrios, MSPT 02/06/2021 M75.41 Impingement syndrome of right sh lali Barrios, MSPT 01/30/2021 M75.41 Impingement syndrome of right sh ireneer Chelle Martinsbrian Ritchie, GREEN END WORKER 01/28/2021 M75.41 Impingement syndrome of right sh ireneer Davida Barrios, MSPT 01/26/2021 M75.41 Impingement syndrome of right sh lali Nilesh Contreras, ISMA 01/23/2021 M75.41 Impingement syndrome of right sh billlder Charyrie Ortolano, GREEN END WORKER 01/20/2021 M75.41 Impingement syndrome of right sh oulder Danamarie Ortolano, GREEN END WORKER 01/14/2021 M75.41 Impingement syndrome of right sh oulder Danamarie Ortolano, GREEN END WORKER 01/09/2021 M75.41 Impingement syndrome of right sh billlder Danamarie Ortolano, GREEN END WORKER 01/07/2021 M75.41 Impingement syndrome of right sh ireneer Chelle Martinsn Ritchie, GREEN END WORKER 01/02/2021 M75.41 Impingement syndrome of right sh lali Barrios, MSPT 12/10/2020 M75.41 Impingement syndrome of right sh billlder ISMA Gonsales Plan of Treatment Future Appointment(s):* 04/23/2021 9:00 am - Chelle Ritchie, GREEN END WORKER at Physical Therapy Functional Status Description No Information Available Mental Status Description No Information Available Referrals Refer to Reason for Referral Status Appt Date Andrae Wilburn MD PT ALLOWED EVAL THEN NEEDS A [facility] (([phone]) TO PT DEPT. NT Closed [address] [place] [phone] Andrae Wilburn MD PT PER DELVIN AT [facility] APPROVAL F OR 12 VISITS ON RT SHOULDER TO PT DEPT. NT Created [address] [place] [phone] Andrae Wilburn MD PT BASED ON MED. [facility] TO PT DEPT. NT C reated [address] [place] [phone]
--- OUTSIDE RECORDS SUMMARY | 2021-06-24 11:45 | CCD | Continuity of Care Document ---
Author Author Melonie Salas M.D. Organization Unknown Address [address] [address] Phone [phone] Care Team Providers Care Supervisor Paper Products Name Role Phone Mary Salas MD AUTM [phone] Problems Active Problems Provider Date Essential hypertension [...] Mary Salas M.D. 09/26/19 14 Caltrate 600+D [id number] Tablets qd Mary Salas M.D. 03/29/2013 Vitamin [...] CPT Code Status Date Vaccine Lot # [id number] Given 04/21/2021 Adacel- Tetanus Diphtheria P ertussis (Age64 & Under) [id number] U-Flu Given 05/23/2020 Influenza,Unspecified 58268 Given 01/02/2019 Shingrix 17761 Given 10/25/2018 Shingrix 89913 Given 03/29/2013 Pneumovax 23 [id number] 88452 Given 03/29/2011 Tetanus/Diptheria(Td)Toxoids Preservative Free [id number] 59606 Given 09/03/2008 Zoster Vaccine 76315 Given 03/01/2006 Pneumovax 23 62403 Refused 06/06/2018 Influenza Virus Vaccine, Quadrivalent (Cciiv4), [...] H/L Range Note Complete Blood Count 04/21/2021 [facility] Wellness Director: [place] [address] [phone] WBC 6.7 x10*3/UL 4.1 - 10.9 RBC [...] 2.0 - 7.8 Laboratory test finding 04/21/2021 [facility] Director Machine parvez amaya Wellness Director: Dr Samir [place] [id number] [phone] Creatine Kinase(CK) 40 U/L 26 - 192 A1c 04/21/2021 [facility] Wellness Director: [place] [address] [phone] Hba1c 7.1 % High <5.7 1 Est Avg Glucose 157 mg/dL High 60 - 110 Laboratory test finding 04/21/2021 [facility] Director Machine parvez amaya Wellness Director: [place] [address] [phone] Magnesium 1.8 mg/dL 1.8 - 2.4 Comprehensive Chem Profile 04/21/2021 [facility] Wellness Director: [place] [address] [phone] Glucose 153 mg/dL High 74 - 99 [...] 60 mL/min >60 3 Lipid Profile 04/21/2021 [facility] Wellness Director: [place] [address] [phone] Cholesterol 139 mg/dL 131 - 200 Triglycerides 101 mg/dL 30 - 150 HDL Cholesterol 51 mg/dL 35 - 60 LDL (Calculated) 68 CALC 50 - 159 Laboratory test finding 04/21/2021 [facility] Director Machine shirley, Wellness Director: Dr Samir Steinberg [facility] [phone] Thyroid Stimulating Hormone 1.26 uIU/mL 0.3 6 - 3.74 Ua Dipstick Only 04/21/2021 [facility] Wellness Director: Dr Samir Steinberg [place] [address] [phone] Urine Color STRAW Abnormal Yellow Urine Appearance CLEAR Clear Urine PH 7.5 units 5.0 - 9.0 Urine Specific [place] 1.010 1.005 - 1.030 Urine Leukocytes NEGATIVE Negative Urine Blood NEGATIVE Negative Urine Protein NEGATIVE Negative -Trace Urine Glucose NEGATIVE mg/dL Negative Urine Nitrite NEGATIVE Negative Urine Ketone NEGATIVE mg/dL Negative Urine Bilirubin NEGATIVE Negative Urine Urobilinogen 0.2 mg/dL 0.2 - 1.0 Microalbumin/Creatinine Urine 04/21/2021 [facility], Wellness Director: Dr Samir Steinberg [place] [id number] [phone] Microalbumin Urine 3.8 mg/L 1.3 - 20.0 Urine Creatinine 57.4 mg/dL 30.0 - 125.0 Microalb/Creat Ratio 6.6 ug/mg 0.0 - 30.0 A1c 01/22/2021 [facility] Wellness Director: [place] [address] [phone] Hba1c 6.9 % High <5.7 4 Est Avg Glucose 151 mg/dL High 60 - 110 Basic Metabolic Panel 01/22/2021 [facility] Wellness Director: [place] [address] [phone] Glucose 189 mg/dL High 74 - 99 [...] LITTLE GFR LEFT ESRD GFR <15 ON TUB ATTENDANT 4 Lab Result Notes: Pre-Diabetes 5.7 - [...] LITTLE GFR LEFT ESRD GFR <15 ON TUB ATTENDANT Procedures Date Code Description Status 01/22/2021 45287 Office/Outpatient Established Mo d MDM 30-39 Min Completed 06/07/2020 610431618 Diabetic Retinal Eye Exam Comple piedad 04/18/2020 [id number] Bone Mineral Density Test Comple piedad 04/18/2020 [id number] Mammogram Completed 04/13/2019 73190002 Mammogram Completed 03/21/2018 303820322 Diabetic Retinal Eye Exam Comple piedad 12/26/2017 [id number] Bone Mineral Density Test Comple piedad 12/26/2017 [id number] Mammogram Completed 10/24/2017 [id number] Colonoscopy Completed 10/25/2016 [id number] Mammogram Completed 05/02/2015 353824446 Bone Mineral Density Test Comple piedad 05/02/2015 24992103 Mammogram Completed 05/01/2014 15365391 Mammogram Completed 04/30/2013 87399708 Mammogram Completed 10/25/2012 85073303 Colonoscopy Completed 04/28/2012 96983902 Mammogram Completed 04/27/2011 62230317 Mammogram Completed 04/27/2011 [id number] Bone Mineral Density Test Comple piedad 04/20/2010 39471341 Mammogram Completed 04/18/2009 907287538 Bone Mineral Density Test Comple piedad 05/30/2006 [id number] Colonoscopy Completed Medical Devices Description No Information Available Encounters Type Date Location Provider Dx Diagnosis Office Visit 01/22/2021 2:30p [facility] Jm Salas M.D. E11.9 Type [...] 8:30 am - [facility] 04/21/2021 - Mary Salas [...] to Reason for Referral Status Appt Date [facility] CONSULT FOR RT SHOULDER PAIN [facility] [address] [place] [address] [phone]
--- OUTSIDE RECORDS SUMMARY | 2021-06-24 11:45 | CCD | Continuity of Care Document ---
Author Author Melonie BARRIOS MSPT Organization Unknown Address [address] [place] [address] Phone [phone] Care Team Providers Care Export Specialist Name Role Phone Mary Salas MD AUTM [phone] Problems Active Problems Provider Date Type 2 [...] Metformin HCL 500mg Tablets Unknown Caltrate 600+D3 [id number] Tab lets 1 by mouth twice a [...] Available Procedures Date Code Description Status 04/20/2021 39676 Therapeutic Procedure, Each 15 M inutes Completed 04/17/2021 15500 Therapeutic Procedure, Each 15 M inutes Completed 04/13/2021 65559 Therapeutic Procedure, Each 15 M inutes Completed 04/10/2021 20092 Therapeutic Procedure, Each 15 M inutes Completed 04/06/2021 22769 Therapeutic Procedure, Each 15 M inutes Completed 04/01/2021 71836 Therapeutic Procedure, Each 15 M inutes Completed 03/30/2021 10600 Therapeutic Procedure, Each 15 M inutes Completed 03/25/2021 18283 Therapeutic Procedure, Each 15 M inutes Completed 03/23/2021 71149 Therapeutic Procedure, Each 15 M inutes Completed 03/18/2021 58272 Therapeutic Procedure, Each 15 M inutes Completed 03/16/2021 04181 Therapeutic Procedure, Each 15 M inutes Completed 02/25/2021 84759 Office/Outpatient Established Lo w MDM 20-29 Min Completed 02/25/2021 26745 Therapeutic Procedure, Each 15 M inutes Completed 02/25/2021 76857 Therapeutic Procedure, Each 15 M inutes Completed 02/18/2021 20120 Therapeutic Procedure, Each 15 M inutes Completed 02/18/2021 75884 Therapeutic Procedure, Each 15 M inutes Completed 02/11/2021 63275 Therapeutic Procedure, Each 15 M inutes Completed 02/11/2021 20130 Therapeutic Procedure, Each 15 M inutes Completed 02/06/2021 10871 Hot Or Cold Packs Completed 02/06/2021 86414 Therapeutic Procedure, Each 15 M inutes Completed 01/30/2021 73230 Therapeutic Procedure, Each 15 M inutes Completed 01/30/2021 74695 Therapeutic Procedure, Each 15 M inutes Completed 01/28/2021 29357 Therapeutic Procedure, Each 15 M inutes Completed 01/28/2021 34305 Therapeutic Procedure, Each 15 M inutes Completed 01/26/2021 40773 Office/Outpatient Established Lo w MDM 20-29 Min Completed 01/23/2021 33641 Therapeutic Procedure, Each 15 M inutes Completed 01/23/2021 06361 Therapeutic Procedure, Each 15 M inutes Completed 01/20/2021 34719 Therapeutic Procedure, Each 15 M inutes Completed 01/20/2021 98175 Therapeutic Procedure, Each 15 M inutes Completed 01/14/2021 15179 Therapeutic Procedure, Each 15 M inutes Completed 01/14/2021 54516 Therapeutic Procedure, Each 15 M inutes Completed 01/09/2021 38821 Therapeutic Procedure, Each 15 M inutes Completed 01/09/2021 04086 Therapeutic Procedure, Each 15 M inutes Completed 01/07/2021 61161 Therapeutic Procedure, Each 15 M inutes Completed 01/07/2021 63910 Therapeutic Procedure, Each 15 M inutes Completed 01/02/2021 59441 Physical Therapy Eval - Low Comp lexity Completed 12/10/2020 68978 Office/Outpatient New Low [facility] 30 -44 Minutes Completed 12/10/2020 39027 X-Ray Humerus Two Views Complete d Medical [...] syndrome of right sh lali Martinsbrian Ritchie, ORNAMENTAL MACHINE OPERATOR 04/17/2021 M75.41 Impingement syndrome of right sh irene Davida Barrios, MSPT 04/13/2021 M75.41 Impingement syndrome of right sh ireneer Chelle Melonie Ritchie, ORNAMENTAL MACHINE OPERATOR 04/10/2021 M75.41 Impingement syndrome of right sh biller Davida Barrios, MSPT 04/06/2021 M75.41 Impingement syndrome of right sh lali Corbett Melonie Ritchie, ORNAMENTAL MACHINE OPERATOR 04/01/2021 M75.41 Impingement syndrome of right sh lali Alfonzo Arellano, ORNAMENTAL MACHINE OPERATOR 03/30/2021 M75.41 Impingement syndrome of right sh lali Martinsbrian Ritchie, ORNAMENTAL MACHINE OPERATOR 03/25/2021 M75.41 Impingement syndrome of right sh billldhayes Danae Sesay P.T.AMarley 03/23/2021 M75.41 Impingement syndrome of right sh oulder Danae Sesay P.T.A. 03/18/2021 M75.41 Impingement syndrome of right sh oulder Danae Sesay P.T.A. 03/16/2021 M75.41 Impingement syndrome of right sh billlder Davida Barrios, MSPT 02/25/2021 M75.41 Impingement syndrome of right sh billlder Davida Barrios, MSPT 02/25/2021 M75.41 Impingement syndrome of right sh billlder Nilesh Contreras, PA 02/18/2021 M75.41 Impingement syndrome of right sh billlder Chelle Melonie Ritchie, ORNAMENTAL MACHINE OPERATOR 02/11/2021 M75.41 Impingement syndrome of right sh ireneer Davida Barrios, MSPT 02/06/2021 M75.41 Impingement syndrome of right sh ireneer Davida Barrios, MSPT 01/30/2021 M75.41 Impingement syndrome of right sh billlder Chelle Melonie Ritchie, ORNAMENTAL MACHINE OPERATOR 01/28/2021 M75.41 Impingement syndrome of right sh ireneer Davida Barrios, MSPT 01/26/2021 M75.41 Impingement syndrome of right sh billlder Nilesh Contreras, PA 01/23/2021 M75.41 Impingement syndrome of right sh billlder Danrhonarie Ortolano, ORNAMENTAL MACHINE OPERATOR 01/20/2021 M75.41 Impingement syndrome of right sh oulder Danamarie Ortolano, ORNAMENTAL MACHINE OPERATOR 01/14/2021 M75.41 Impingement syndrome of right sh oulder Danamarie Ortolano, ORNAMENTAL MACHINE OPERATOR 01/09/2021 M75.41 Impingement syndrome of right sh billlder Humbleamarie Ortolano, ORNAMENTAL MACHINE OPERATOR 01/07/2021 M75.41 Impingement syndrome of right sh billlder Chelle Ritchie, ORNAMENTAL MACHINE OPERATOR 01/02/2021 M75.41 Impingement syndrome of right sh billlder Davida Barrios, MSPT 12/10/2020 M75.41 Impingement syndrome of right sh oulder ISMA Gonsales Plan of Treatment Future Appointment(s):* 04/23/2021 9:00 am - Chelle Ritchie, ORNAMENTAL MACHINE OPERATOR at Physical Therapy Functional Status Description No Information Available Mental Status Description No Information Available Referrals Refer to Reason for Referral Status Appt Date Andrae Wilburn MD PT ALLOWED EVAL THEN NEEDS A UTH (([phone]) TO PT DEPT. NT Closed [address] [place], [place] [id number] [phone] Andrae Wilburn MD PT PER DELVIN AT [facility] APPROVAL F OR 12 VISITS ON RT SHOULDER TO PT DEPT. NT Created [address] [place] [address] [phone] Andrae Wilburn MD PT BASED ON MED. [facility] TO PT DEPT. NT C reated [address] [place] [address] [phone]
--- OUTSIDE RECORDS SUMMARY | 2021-06-24 11:45 | CCD | Continuity of Care Document ---
Author Melonie [facility]iz [facility] Organization Unknown Address [address] [place] [address] Phone [phone] Care Team Providers Care Accounting Representative Name Role Phone Mary Salas MD [facility] [phone] Problems Active Problems Provider Date Type 2 [...] Metformin HCL 500mg Tablets Unknown Caltrate 600+D3 [id number] Tab lets 1 by mouth twice a [...] Available Procedures Date Code Description Status 04/20/2021 28701 Therapeutic Procedure, Each 15 M inutes Completed 04/17/2021 49375 Therapeutic Procedure, Each 15 M inutes Completed 04/13/2021 27635 Therapeutic Procedure, Each 15 M inutes Completed 04/10/2021 22382 Therapeutic Procedure, Each 15 M inutes Completed 04/06/2021 55166 Therapeutic Procedure, Each 15 M inutes Completed 04/01/2021 86868 Therapeutic Procedure, Each 15 M inutes Completed 03/30/2021 97630 Therapeutic Procedure, Each 15 M inutes Completed 03/25/2021 84005 Therapeutic Procedure, Each 15 M inutes Completed 03/23/2021 94775 Therapeutic Procedure, Each 15 M inutes Completed 03/18/2021 21529 Therapeutic Procedure, Each 15 M inutes Completed 03/16/2021 31923 Therapeutic Procedure, Each 15 M inutes Completed 02/25/2021 09899 Office/Outpatient Established Lo w MDM 20-29 Min Completed 02/25/2021 45292 Therapeutic Procedure, Each 15 M inutes Completed 02/25/2021 54223 Therapeutic Procedure, Each 15 M inutes Completed 02/18/2021 92109 Therapeutic Procedure, Each 15 M inutes Completed 02/18/2021 45750 Therapeutic Procedure, Each 15 M inutes Completed 02/11/2021 34435 Therapeutic Procedure, Each 15 M inutes Completed 02/11/2021 21475 Therapeutic Procedure, Each 15 M inutes Completed 02/06/2021 35714 Hot Or Cold Packs Completed 02/06/2021 12035 Therapeutic Procedure, Each 15 M inutes Completed 01/30/2021 37604 Therapeutic Procedure, Each 15 M inutes Completed 01/30/2021 12257 Therapeutic Procedure, Each 15 M inutes Completed 01/28/2021 26547 Therapeutic Procedure, Each 15 M inutes Completed 01/28/2021 17190 Therapeutic Procedure, Each 15 M inutes Completed 01/26/2021 37492 Office/Outpatient Established Lo w MDM 20-29 Min Completed 01/23/2021 86960 Therapeutic Procedure, Each 15 M inutes Completed 01/23/2021 38952 Therapeutic Procedure, Each 15 M inutes Completed 01/20/2021 34146 Therapeutic Procedure, Each 15 M inutes Completed 01/20/2021 50816 Therapeutic Procedure, Each 15 M inutes Completed 01/14/2021 47592 Therapeutic Procedure, Each 15 M inutes Completed 01/14/2021 24765 Therapeutic Procedure, Each 15 M inutes Completed 01/09/2021 42115 Therapeutic Procedure, Each 15 M inutes Completed 01/09/2021 17624 Therapeutic Procedure, Each 15 M inutes Completed 01/07/2021 43434 Therapeutic Procedure, Each 15 M inutes Completed 01/07/2021 30480 Therapeutic Procedure, Each 15 M inutes Completed 01/02/2021 39925 Physical Therapy Eval - Low Comp lexity Completed 12/10/2020 20153 Office/Outpatient [facility] 30 -44 Minutes Completed 12/10/2020 46653 X-Ray Humerus Two Views Complete d Medical [...] of right sh irene Chelle Melonie Ritchie, ADHESION TESTER 04/17/2021 M75.41 Impingement [facility] Dav[facility], [facility] 04/13/2021 M75.41 Impingement syndrome of right sh irene Chelle Melonie Ritchie, ADHESION TESTER 04/10/2021 M75.41 Impingement syndrome [facility] Dav[facility] Bar[facility], MSPT 04/06/2021 M75.41 Impingement syndrome of right sh lali Corbett Melonie Ritchie, ADHESION TESTER 04/01/2021 M75.41 Impingement syndrome of right sh lali Alfonzo Arellano, ADHESION TESTER 03/30/2021 M75.41 Impingement syndrome of right sh lali Martinsbrian Ritchie, ADHESION TESTER 03/25/2021 M75.41 Impingement syndrome of right sh [...] of right sh billlder Chelle Martinsbrian Ritchie, ADHESION TESTER 02/11/2021 M75.41 Impingement syndrome of right sh ireneer Davida Barrios, MSPT 02/06/2021 M75.41 Impingement syndrome of right sh lali Barrios, MSPT 01/30/2021 M75.41 Impingement syndrome of right sh ireneer Chelle Martinsbrian Ritchie, ADHESION TESTER 01/28/2021 M75.41 Impingement syndrome of right sh ireneer Davida Barrios, MSPT 01/26/2021 M75.41 Impingement syndrome of right sh lali Nilesh Contreras, ISMA 01/23/2021 M75.41 Impingement syndrome of right sh billlder Charyrie Ortolano, ADHESION TESTER 01/20/2021 M75.41 Impingement syndrome of right sh oulder Danamarie Ortolano, ADHESION TESTER 01/14/2021 M75.41 Impingement syndrome of right sh oulder Danamarie Ortolano, ADHESION TESTER 01/09/2021 M75.41 Impingement syndrome of right sh billlder Danamarie Ortolano, ADHESION TESTER 01/07/2021 M75.41 Impingement syndrome of right sh ireneer Chelle Martinsn Ritchie, ADHESION TESTER 01/02/2021 M75.41 Impingement syndrome of right sh lali Barrios, MSPT 12/10/2020 M75.41 Impingement syndrome of right sh billlder ISMA Gonsales Plan of Treatment Future Appointment(s):* 04/23/2021 9:00 am - Chelle Ritchie, ADHESION TESTER at Physical Therapy Functional Status Description No Information Available Mental Status Description No Information Available Referrals Refer to Reason for Referral Status Appt Date Andrae Wilburn MD PT ALLOWED EVAL THEN NEEDS A UTH (([phone]) TO PT DEPT. NT Closed [address] [place] [phone] [phone] Andrae Wilburn MD PT PER DELVIN AT [facility] APPROVAL F OR 12 VISITS ON RT SHOULDER TO PT DEPT. NT Created [address] [place] [address] [phone] Andrae Wilburn MD PT BASED ON MED. [facility] TO PT DEPT. NT C reated [address] [place] [address] [phone]
--- OUTSIDE RECORDS SUMMARY | 2021-06-24 11:45 | CCD | Continuity of Care Document ---
Author Melonie Galaviz [facility] Organization Unknown Address [address] [place] [address] Phone [phone] Care Team Providers Care Welding Equipment Repairer Supervisor Name Role Phone Mary Salas MD [facility] [phone] Problems Active Problems Provider Date Type 2 [...] Metformin HCL 500mg Tablets Unknown Caltrate 600+D3 [id number] Tab lets 1 by mouth twice a [...] Available Procedures Date Code Description Status 04/20/2021 52113 Therapeutic Procedure, Each 15 M inutes Completed 04/17/2021 81995 Therapeutic Procedure, Each 15 M inutes Completed 04/13/2021 14297 Therapeutic Procedure, Each 15 M inutes Completed 04/10/2021 69586 Therapeutic Procedure, Each 15 M inutes Completed 04/06/2021 61242 Therapeutic Procedure, Each 15 M inutes Completed 04/01/2021 55463 Therapeutic Procedure, Each 15 M inutes Completed 03/30/2021 72577 Therapeutic Procedure, Each 15 M inutes Completed 03/25/2021 29811 Therapeutic Procedure, Each 15 M inutes Completed 03/23/2021 65567 Therapeutic Procedure, Each 15 M inutes Completed 03/18/2021 12106 Therapeutic Procedure, Each 15 M inutes Completed 03/16/2021 18999 Therapeutic Procedure, Each 15 M inutes Completed 02/25/2021 67399 Office/Outpatient Established Lo w MDM 20-29 Min Completed 02/25/2021 98700 Therapeutic Procedure, Each 15 M inutes Completed 02/25/2021 04621 Therapeutic Procedure, Each 15 M inutes Completed 02/18/2021 95752 Therapeutic Procedure, Each 15 M inutes Completed 02/18/2021 10900 Therapeutic Procedure, Each 15 M inutes Completed 02/11/2021 42746 Therapeutic Procedure, Each 15 M inutes Completed 02/11/2021 98605 Therapeutic Procedure, Each 15 M inutes Completed 02/06/2021 06987 Hot Or Cold Packs Completed 02/06/2021 39753 Therapeutic Procedure, Each 15 M inutes Completed 01/30/2021 31507 Therapeutic Procedure, Each 15 M inutes Completed 01/30/2021 44468 Therapeutic Procedure, Each 15 M inutes Completed 01/28/2021 54807 Therapeutic Procedure, Each 15 M inutes Completed 01/28/2021 99331 Therapeutic Procedure, Each 15 M inutes Completed 01/26/2021 91954 Office/Outpatient Established Lo w MDM 20-29 Min Completed 01/23/2021 18542 Therapeutic Procedure, Each 15 M inutes Completed 01/23/2021 39198 Therapeutic Procedure, Each 15 M inutes Completed 01/20/2021 66151 Therapeutic Procedure, Each 15 M inutes Completed 01/20/2021 86620 Therapeutic Procedure, Each 15 M inutes Completed 01/14/2021 53060 Therapeutic Procedure, Each 15 M inutes Completed 01/14/2021 82783 Therapeutic Procedure, Each 15 M inutes Completed 01/09/2021 83742 Therapeutic Procedure, Each 15 M inutes Completed 01/09/2021 18890 Therapeutic Procedure, Each 15 M inutes Completed 01/07/2021 60718 Therapeutic Procedure, Each 15 M inutes Completed 01/07/2021 95728 Therapeutic Procedure, Each 15 M inutes Completed 01/02/2021 28474 Physical Therapy Eval - Low Comp lexity Completed 12/10/2020 86145 Office/Outpatient [facility] 30 -44 Minutes Completed 12/10/2020 94306 X-Ray Humerus Two Views Complete d Medical [...] of right sh irene Chelle Melonie Ritchie, RUSTIC TERRAZZO SETTER 04/17/2021 M75.41 Impingement syndrome [facility] Dav[facility] Barrios, [facility] 04/13/2021 M75.41 Impingement syndrome of right sh irene Chelle Melonie Ritchie, RUSTIC TERRAZZO SETTER 04/10/2021 M75.41 Impingement syndrome [facility] Davida Barrios, MSPT 04/06/2021 M75.41 Impingement syndrome of right sh lali Corbett Melonie Ritchie, RUSTIC TERRAZZO SETTER 04/01/2021 M75.41 Impingement syndrome of right sh lali Alfonzo Arellano, RUSTIC TERRAZZO SETTER 03/30/2021 M75.41 Impingement syndrome of right sh lali Martinsbrian Ritchie, RUSTIC TERRAZZO SETTER 03/25/2021 M75.41 Impingement syndrome of right sh [...] of right sh billlder Chelle Martinsbrian Ritchie, RUSTIC TERRAZZO SETTER 02/11/2021 M75.41 Impingement syndrome of right sh ireneer Davida Barrios, MSPT 02/06/2021 M75.41 Impingement syndrome of right sh lali Barrios, MSPT 01/30/2021 M75.41 Impingement syndrome of right sh ireneer Chelle Martinsbrian Ritchie, RUSTIC TERRAZZO SETTER 01/28/2021 M75.41 Impingement syndrome of right sh ireneer Davida Barrios, MSPT 01/26/2021 M75.41 Impingement syndrome of right sh lali Nilesh Contreras, ISMA 01/23/2021 M75.41 Impingement syndrome of right sh billlder Charyrie Ortolano, RUSTIC TERRAZZO SETTER 01/20/2021 M75.41 Impingement syndrome of right sh oulder Danamarie Ortolano, RUSTIC TERRAZZO SETTER 01/14/2021 M75.41 Impingement syndrome of right sh oulder Danamarie Ortolano, RUSTIC TERRAZZO SETTER 01/09/2021 M75.41 Impingement syndrome of right sh billlder Danamarie Ortolano, RUSTIC TERRAZZO SETTER 01/07/2021 M75.41 Impingement syndrome of right sh ireneer Chelle Martinsn Ritchie, RUSTIC TERRAZZO SETTER 01/02/2021 M75.41 Impingement syndrome of right sh lali Barrios, MSPT 12/10/2020 M75.41 Impingement syndrome of right sh billlder ISMA Gonsales Plan of Treatment Future Appointment(s):* 04/23/2021 9:00 am - Chelle Ritchie, RUSTIC TERRAZZO SETTER at Physical Therapy Functional Status Description No Information Available Mental Status Description No Information Available Referrals Refer to Reason for Referral Status Appt Date Andrae Wilburn MD PT ALLOWED EVAL THEN NEEDS A UTH (([phone]) TO PT DEPT. NT Closed [address] [place] [phone] Andrae Wilburn MD PT PER DELVIN AT [facility] APPROVAL F OR 12 VISITS ON RT SHOULDER TO PT DEPT. NT Created [address] [place] [phone] Andrae Wilburn MD PT BASED ON MED. [facility] TO PT DEPT. NT C reated [address] [place] [phone]
--- OUTSIDE RECORDS SUMMARY | 2021-06-24 11:45 | CCD | Continuity of Care Document ---
Author Author Melonie Salas M.D. Organization Unknown Address [address] [address] Phone [phone] Care Team Providers Care Dental Associate Name Role Phone Mary Salas MD AUTM [phone] Problems Active Problems Provider Date Essential hypertension [...] Mary Salas M.D. 09/26/19 14 Caltrate 600+D [id number] Tablets qd Mary Salas M.D. 03/29/2013 Vitamin [...] Mary Salas M.D. 01/27/20 21 - 04/21/2021 Medications Administered in Office Medication SIG Qnty Indications Ordering Provider Date Immunization Adminstration,1 Vaccine/Tox oid Injection Mary Salas M.D. 04/05 Immunizations CPT Code Status Date Vaccine Lot # [id number] Given 04/21/2021 Adacel- Tetanus Diphtheria P ertussis (Age64 & Under) [id number] U-Flu Given 05/23/2020 Influenza,Unspecified 25251 Given 01/02/2019 Shingrix 97697 Given 10/25/2018 Shingrix 92762 Given 03/29/2013 Pneumovax 23 [id number] 73392 Given 03/29/2011 Tetanus/Diptheria(Td)Toxoids Preservative Free [id number] 17171 Given 09/03/2008 Zoster Vaccine 30544 Given 03/01/2006 Pneumovax 23 [id number] Refused 06/06/2018 Influenza Virus Vaccine, Quadrivalent (Cciiv4), [...] H/L Range Note Complete Blood Count 04/21/2021 [facility] Cross [facility]ie Cutter: [place] [address] [phone] WBC 6.7 x10*3/UL 4.1 - 10.9 RBC [...] 2.0 - 7.8 Laboratory test finding 04/21/2021 [facility] Cross Tie Cutter: [place] [address] [phone] Creatine Kinase(CK) 40 U/L 26 - 192 A1c 04/21/2021 [facility] Cross [facility]ie Cutter: [place] [address] [phone] Hba1c 7.1 % High <5.7 1 Est Avg Glucose 157 mg/dL High 60 - 110 Laboratory test finding 04/21/2021 [facility] Cross Tie Cutter: [place] [address] [phone] Magnesium 1.8 mg/dL 1.8 - 2.4 Comprehensive Chem Profile 04/21/2021 [facility] Cross Tie Cutter: [place] [address] [phone] Glucose 153 mg/dL High 74 - 99 [...] 60 mL/min >60 3 Lipid Profile 04/21/2021 [facility] Cross Tie Cutter: [place] [address] [phone] Cholesterol 139 mg/dL 131 - 200 Triglycerides 101 mg/dL 30 - 150 HDL Cholesterol 51 mg/dL 35 - 60 LDL (Calculated) 68 CALC 50 - 159 Laboratory test finding 04/21/2021 [facility] Cross Tie Cutter: [place] [address] [phone] Thyroid Stimulating Hormone 1.26 uIU/mL 0.3 6 - 3.74 Ua Dipstick Only 04/21/2021 [facility] , Cross Tie Cutter: [place] [address] [phone] Urine Color STRAW Abnormal Yellow Urine Appearance CLEAR Clear Urine PH 7.5 units 5.0 - 9.0 Urine Specific [place] 1.010 1.005 - 1.030 Urine Leukocytes NEGATIVE Negative Urine Blood NEGATIVE Negative Urine Protein NEGATIVE Negative -Trace Urine Glucose NEGATIVE mg/dL Negative Urine Nitrite NEGATIVE Negative Urine Ketone NEGATIVE mg/dL Negative Urine Bilirubin NEGATIVE Negative Urine Urobilinogen 0.2 mg/dL 0.2 - 1.0 Microalbumin/Creatinine Urine 04/21/2021 [facility], Cross Tie Cutter: [place] [address] [phone] Microalbumin Urine 3.8 mg/L 1.3 - 20.0 Urine Creatinine 57.4 mg/dL 30.0 - 125.0 Microalb/Creat Ratio 6.6 ug/mg 0.0 - 30.0 A1c 01/22/2021 [facility]: [place] [address] [phone] Hba1c 6.9 % High <5.7 4 Est Avg Glucose 151 mg/dL High 60 - 110 Basic Metabolic Panel 01/22/2021 [facility] Cross Tie Cutter: [place] [address] [phone] Glucose 189 mg/dL High 74 - 99 [...] LITTLE GFR LEFT ESRD GFR <15 ON FURNACE COMBINATION ANALYST 4 Lab Result Notes: Pre-Diabetes 5.7 - [...] LITTLE GFR LEFT ESRD GFR <15 ON FURNACE COMBINATION ANALYST Procedures Date Code Description Status 04/21/2021 48044 Est Prevent Med (65Yrs&Ovr) Comp leted 01/22/2021 33823 Office/Outpatient Established Mo d MDM 30-39 Min Completed 06/07/2020 780099614 Diabetic Retinal Eye Exam Comple piedad 04/18/2020 [id number] Bone Mineral Density Test Comple piedad 04/18/2020 [id number] Mammogram Completed 04/13/2019 [id number] Mammogram Completed 03/21/2018 [id number] Diabetic Retinal Eye Exam Comple piedad 12/26/2017 [id number] Bone Mineral Density Test Comple piedad 12/26/2017 [id number] Mammogram Completed 10/24/2017 [id number] Colonoscopy Completed 10/25/2016 [id number] Mammogram Completed 05/02/2015 [id number] Bone Mineral Density Test Comple piedad 05/02/2015 [id number] Mammogram Completed 05/01/2014 [id number] Mammogram Completed 04/30/2013 [id number] Mammogram Completed 10/25/2012 [id number] Colonoscopy Completed 04/28/2012 [id number] Mammogram Completed 04/27/2011 [id number] Mammogram Completed 04/27/2011 [id number] Bone Mineral Density Test Comple piedad 04/20/2010 [id number] Mammogram Completed 04/18/2009 [id number] Bone Mineral Density Test Comple piedad 05/30/2006 [id number] Colonoscopy Completed Medical Devices Description No Information Available Encounters Type Date Location Provider Dx Diagnosis Office Visit 04/21/2021 1:00p [facility] 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 Jm Salas M.D. 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 04/21/2021 Z79.84 terminal clerk (current) use of oral hypoglycemic drugs Mary Salas M.D. 04/21/2021 E11.9 Type 2 diabetes mellitus without [...] L43.9 Lichen planus, unspecified Mary Salas M.D. 04/21/2021 Z13.89 Encounter for screening for othe r disorder Mary Salas M.D. 04/21/2021 Z23 Encounter for immunization Mary Salas M.D. 01/22/2021 E11.9 Type 2 [...] 8:30 am - Mary Salas M.D. at [facility] 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 Colonoscopy [...]
--- OUTSIDE RECORDS SUMMARY | 2021-06-24 11:45 | CCD | Continuity of Care Document ---
Author Author Melonie DUNCAN M.D. Organization Unknown Address [address] [place] [address] Phone [phone] Care Team Providers Care Water Resources Project Manager Name Role Phone Mary Salas M.D. AUTM [phone] Problems Active Problems Provider Date Screening for malignant neoplasm of colon Keiko Ca, A.N.P. Onset: 07/25/2012 Family history of polyp of colon Walker CollazoNMarleyPMarley On set: 07/26/2012 Essential hypertension Onset: 07/26/2012 Social History Type Date Description Comments Sex Unknown ETOH Use Denies alcohol use Tobacco Use Start: Unknown Patient has never smoked Allergies, Adverse Reactions, Alerts Description No Known Drug Allergies Medications Active Medications SIG Qnty Indications Ordering Provide r Date Sutab [id number] Tablets as directed 1box Adis Duncan M.D. 04/28/2021 Lisinopril/Hydrochlorothiazide 10-12.5mg Tablets Evelia HoffF.N.P. / Atorvastatin Calcium 20mg Tablets Evelia HoffF.N.P. Caltrate 600 1500mg Tablets Unknown Fish Oil Oil Unknown Vitamin D3 1000Iu Tablets Unknown Levothyroxine Sodium 88mcg Tablets Mary Salas M.D. Metformin HCL ER 500mg Tablets ER 24HR Mary Salas M.D. Immunizations Description No Information Available Vital Signs Date Vital Result Comment 04/28/2021 11:30am Height 66 inches 5'6" Weight 136.00 lb BP Systolic 126 mmHg BP Diastolic 70 mmHg Heart Rate 72 /min BMI (Body Mass Index) 21.9 kg/m2 Weight 61.690 kg Body Temperature 97.3 F 09/29/2017 3:52pm Height 66 inches 5'6" Weight 144.00 lb BP Systolic 130 mmHg BP Diastolic 77 mmHg Heart Rate 74 /min BMI (Body Mass Index) 23.2 kg/m2 Weight 65.318 kg Results Description No Information Available Procedures Date Code Description Status 04/28/2021 79069 Office/Outpatient New Low MDM 30 -44 Minutes Completed Medical Devices Description No Information Available Encounters Type Date Location Provider Dx Diagnosis Office Visit 04/28/2021 11:15a Main Office Adis Duncan M.D. Z 86.010 Personal history of colonic polyps Assessments Date Code Description Provider 04/28/2021 Z86.010 Personal history of colonic poly ps Adis Duncan M.D. Plan of Treatment Future Appointment(s):* 06/24/2021 11:00 am - Adis Duncan M.D. at Main Office 04/28/2021 - Adis Duncan M.D.* Z86.010 Personal history of colonic polyps* Comments:* 75 yo wf who presents for a colonoscopy due to a h/o colonic polyps. Last scope was in 2018. No c/o abdominal pain, weight loss, change in bowel habits, or rectal bleeding. No family h/o colon cancer. No h/o chest pain, or sob. Plan:1. Colonoscopy to cecum.2. Subtab prep was ordered 3. Informed consent. Functional Status Description No Information Available Mental Status Description No Information Available Referrals Description No Information Available
--- OUTSIDE RECORDS SUMMARY | 2021-06-24 11:46 | CCD ---
Author Author [facility] Organization [facility] Address Unknown Phone Unavailable Care Team Providers Care Manager Web Application Name Role Phone Ashley Duncan MD Unavailable Unavailable Ashley Duncan MD Unavailable Unavailable Ashley Duncan MD Unavailable Unavailable Ashley Duncan MD Unavailable Unavailable Ashley Duncan MD Unavailable Unavailable Ashley Duncan MD Unavailable Unavailable Ashley Duncan MD Unavailable Unavailable Ashley Duncan MD Unavailable Unavailable Ashley Duncan MD Unavailable Unavailable Ashley Duncan MD Unavailable Unavailable Ashley Duncan MD Unavailable Unavailable Ashley Duncan MD Unavailable Unavailable Ashely Duncan MD Unavailable Unavailable Ashley Duncan MD Unavailable Unavailable Ashley Duncan MD Unavailable Unavailable Ashley Duncan MD Unavailable Unavailable Ashley Duncan MD Unavailable Unavailable Ashley Duncan MD Unavailable Unavailable Ashley Duncan MD Unavailable Unavailable Ashley Duncan MD Unavailable Unavailable Ashley Duncan MD Unavailable Unavailable Ashley Duncan MD Unavailable Unavailable Ashley Duncan MD Unavailable Unavailable Ashley Duncan MD Unavailable Unavailable Ashley Duncan MD Unavailable Unavailable Ashley Duncan MD Unavailable Unavailable Ashley Duncan MD Unavailable Unavailable Ashley Duncan MD Unavailable Unavailable Ashley Duncan MD Unavailable Unavailable Ashley Duncan MD Unavailable Unavailable Ashley Duncan MD Unavailable Unavailable Ashley Duncan MD Unavailable Unavailable Ashley Duncan MD Unavailable Unavailable Ashley Duncan MD Unavailable Unavailable Ashley Duncan MD Unavailable Unavailable Ashley Duncan MD Unavailable Unavailable Ashley Duncan MD Unavailable Unavailable Ashley Duncan MD Unavailable Unavailable Ashley Duncan MD Unavailable Unavailable Ashley Duncan MD Unavailable Unavailable Ashley Duncan MD Unavailable Unavailable Ashley Duncan MD Unavailable Unavailable Ashley Duncan MD Unavailable Unavailable Ashley Duncan MD Unavailable Unavailable Ashley Duncan MD Unavailable Unavailable Ashley Duncan MD Unavailable Unavailable Ashley Duncan MD Unavailable Unavailable Ashley Duncan MD Unavailable Unavailable Ashley Duncan MD Unavailable Unavailable Ashley Duncan MD Unavailable Unavailable Bernardino Salas MD Unavailable Unavailable Bernardino Salas MD Unavailable Unavailable Bernardino Salas MD Unavailable Unavailable Bernardino Salas MD Unavailable Unavailable Bernardino Salas MD Unavailable Unavailable Bernardino Salas MD Unavailable Unavailable Bernardino Salas MD Unavailable Unavailable Bernardino Salas MD Unavailable Unavailable Bernardino Salas MD Unavailable Unavailable Bernardino Salas MD Unavailable Unavailable Bernardino Salas MD Unavailable Unavailable Bernardino Salas MD Unavailable Unavailable Bernardino Salas MD Unavailable Unavailable Bernardino Salas MD Unavailable Unavailable Bernardino Salas MD Unavailable Unavailable Bernardino Salas MD Unavailable Unavailable Bernardino Salas MD Unavailable Unavailable Bernardino Salas MD Unavailable Unavailable Bernardino Salas MD Unavailable Unavailable Bernardino Salas MD Unavailable Unavailable Bernardino Salas MD Unavailable Unavailable Bernardino Salas MD Unavailable Unavailable Bernardino Salas MD Unavailable Unavailable Bernardino Salas MD Unavailable Unavailable Bernardino Salas MD Unavailable Unavailable Bernardino Salas MD Unavailable Unavailable Bernardino Salas MD Unavailable Unavailable Bernardino Salas MD Unavailable Unavailable Bernardino Salas MD Unavailable Unavailable Bernardino Salas MD Unavailable Unavailable Bernardino Salas MD Unavailable Unavailable Bernardino Salas MD Unavailable Unavailable Bernardino Salas MD Unavailable Unavailable Bernardino Salas MD Unavailable Unavailable Bernardino Salas MD Unavailable Unavailable Bernardino Salas MD Unavailable Unavailable Bernardino Salas MD Unavailable Unavailable JosueBernardino heredia MD Unavailable Unavailable JosueBernardino heredia MD Unavailable Unavailable JosueBernardino heredia MD Unavailable Unavailable JosueBernardino heredia MD Unavailable Unavailable JosueBernardino MD Unavailable Unavailable JosueBernardino heredia MD Unavailable Unavailable JosueBernardino heredia MD Unavailable Unavailable Bernardino Salas MD Unavailable Unavailable Bernardino Salas MD Unavailable Unavailable Bernardino Salas MD Unavailable Unavailable JosueBernardino vo MD Unavailable Unavailable Bernardino Salas MD Unavailable Unavailable JosueBernardino vo MD Unavailable Unavailable Bernardino Salas MD Unavailable Unavailable JosueBernardino heredia MD Unavailable Unavailable JosueBernardino vo MD Unavailable Unavailable JosueBernardino vo MD Unavailable Unavailable Bernardino Salas MD Unavailable Unavailable Bernardino Salas MD Unavailable Unavailable Bernardino Salas MD Unavailable Unavailable Bernardino Salas MD Unavailable Unavailable Bernardino Salas MD Unavailable Unavailable Bernardino Salas MD Unavailable Unavailable Bernardino Salas MD Unavailable Unavailable Bernardino Salas MD Unavailable Unavailable Bernardino Salas MD Unavailable Unavailable Bernardino Salas MD Unavailable Unavailable Bernardino Salas MD Unavailable Unavailable Bernardino Salas MD Unavailable Unavailable Bernardino Salas MD Unavailable Unavailable Bernardino Salas MD Unavailable Unavailable Bernardino Salas MD Unavailable Unavailable Bernardino Salas MD Unavailable Unavailable Bernardino Salas MD Unavailable Unavailable Bernardino Salsa MD Unavailable Unavailable Bernardino Salas MD Unavailable Unavailable Bernardino Salas MD Unavailable Unavailable Bernardino Salas MD Unavailable Unavailable Bernardino Salas MD Unavailable Unavailable Bernardino Salas MD Unavailable Unavailable Bernardino Salas MD Unavailable Unavailable Bernardino Salas MD Unavailable Unavailable Bernardino Salas MD Unavailable Unavailable Bernardino Salas MD Unavailable Unavailable Bernardino Salas MD Unavailable Unavailable Bernardino Salas MD Unavailable Unavailable Bernardino Salas MD Unavailable Unavailable Maria Eugenia Bro AMMONIA STILL OPERATOR Unavailable Unavailable Maria Eugenia Bro AMMONIA STILL OPERATOR Unavailable Unavailable Iberia, Shirley AMMONIA STILL OPERATOR Unavailable Unavailable Iberia, Shirley AMMONIA STILL OPERATOR Unavailable Unavailable Iberia, Shirley AMMONIA STILL OPERATOR Unavailable Unavailable Iberia, Shirley AMMONIA STILL OPERATOR Unavailable Unavailable Iberia, Shirley AMMONIA STILL OPERATOR Unavailable Unavailable Iberia, Shirley AMMONIA STILL OPERATOR Unavailable Unavailable Iberia, Shirley AMMONIA STILL OPERATOR Unavailable Unavailable Iberia, Shirley AMMONIA STILL OPERATOR Unavailable Unavailable Iberia, Shirley AMMONIA STILL OPERATOR Unavailable Unavailable Iberia, Shirley AMMONIA STILL OPERATOR Unavailable Unavailable Iberia, Shirley AMMONIA STILL OPERATOR Unavailable Unavailable Iberia, Shirley AMMONIA STILL OPERATOR Unavailable Unavailable Iberia, Shirley AMMONIA STILL OPERATOR Unavailable Unavailable Iberia, Shirley AMMONIA STILL OPERATOR Unavailable Unavailable Iberia, Shirley AMMONIA STILL OPERATOR Unavailable Unavailable Iberia, Shirley AMMONIA STILL OPERATOR Unavailable Unavailable Iberia, Shirley AMMONIA STILL OPERATOR Unavailable Unavailable Iberia, Shirley AMMONIA STILL OPERATOR Unavailable Unavailable Iberia, Shirley AMMONIA STILL OPERATOR Unavailable Unavailable Iberia, Shirley AMMONIA STILL OPERATOR Unavailable Unavailable Iberia, Shirley AMMONIA STILL OPERATOR Unavailable Unavailable Iberia, Shirley AMMONIA STILL OPERATOR Unavailable Unavailable Iberia, Shirley AMMONIA STILL OPERATOR Unavailable Unavailable Iberia, Shirley AMMONIA STILL OPERATOR Unavailable Unavailable Iberia, Shirley AMMONIA STILL OPERATOR Unavailable Unavailable Iberia, Shirley AMMONIA STILL OPERATOR Unavailable Unavailable Iberia, Shirley AMMONIA STILL OPERATOR Unavailable Unavailable Iberia, Shirley AMMONIA STILL OPERATOR Unavailable Unavailable Iberia, Shirley AMMONIA STILL OPERATOR Unavailable Unavailable Iberia, Shirley AMMONIA STILL OPERATOR Unavailable Unavailable Iberia, Shirley AMMONIA STILL OPERATOR Unavailable Unavailable Iberia, Shirley AMMONIA STILL OPERATOR Unavailable Unavailable Iberia, Shirley AMMONIA STILL OPERATOR Unavailable Unavailable Iberia, Shirley AMMONIA STILL OPERATOR Unavailable Unavailable DRAZEK, I HEIDI PA Unavailable Unavailable DRAZEK, I HEIDI PA Unavailable Unavailable DRAZEK, I HEIDI PA Unavailable Unavailable DRAZEK, I HEIDI PA Unavailable Unavailable DRAZEK, I HEIDI PA Unavailable Unavailable DRAZEK, I HEIDI PA Unavailable Unavailable DRAZEK, I HEIDI PA Unavailable Unavailable DRAZEK, I HEIDI PA Unavailable Unavailable DRAZEK, I HEIDI PA Unavailable Unavailable DRAZEK, I HEIDI PA Unavailable Unavailable DRAZEK, I HEIDI PA Unavailable Unavailable DRAZEK, I HEIDI PA Unavailable Unavailable DRAZEK, I HEIDI PA Unavailable Unavailable DRAZEK, I HEIDI PA Unavailable Unavailable DRAZEK, I HEIDI PA Unavailable Unavailable DRAZEK, I HEIDI PA Unavailable Unavailable DRAZEK, I HEIDI PA Unavailable Unavailable DRAZEK, I HEIDI PA Unavailable Unavailable DRAZEK, I HEIDI PA Unavailable Unavailable DRAZEK, I HEIDI PA Unavailable Unavailable DRAZEK, I HEIDI PA Unavailable Unavailable DRAZEK, I HEIDI PA Unavailable Unavailable DRAZEK, I HEIDI PA Unavailable Unavailable DRAZEK, I HEIDI PA Unavailable Unavailable DRAZEK, I HEIDI PA Unavailable Unavailable DRAZEK, I HEIDI PA Unavailable Unavailable DRAZEK, I HEIDI PA Unavailable Unavailable DRAZEK, I HEIDI PA Unavailable Unavailable DRAZEK, I HEIDI PA Unavailable Unavailable DRAZEK, I HEIDI PA Unavailable Unavailable Re-disclosure Warning The records that you are about to access may contain information from federally-assisted alcohol or drug abuse programs. If such information is present, then the following federally mandated warning applies: This information has been disclosed to you from records protected by federal confidentiality rules (42 CFR part 2). The federal rules prohibit you from making any further disclosure of this information unless further disclosure is expressly permitted by the written consent of the person to whom it pertains or as otherwise permitted by 42 CFR part 2. A general authorization for the release of medical or other information is NOT sufficient for this purpose. The Federal rules restrict any use of the information to criminally investigate or prosecute any alcohol or drug abuse patient.The records that you are about to access may contain highly sensitive health information, the redisclosure of which is protected by Article 27-F of the [place] State Public Health law. If you continue you may have access to information: Regarding HIV / AIDS; Provided by facilities licensed or operated by the [facility] Office of Mental Health; or Provided by the [facility] Office for People With Developmental Disabilities. If such information is present, then the following [facility] mandated warning applies: This information has been disclosed to you from confidential records which are protected by state law. State law prohibits you from making any further disclosure of this information without the specific written consent of the person to whom it pertains, or as otherwise permitted by law. Any unauthorized further disclosure in violation of state law may result in a fine or mcc sentence or both. A general authorization for the release of medical or other information is NOT sufficient authorization for further disc losure. Family History Family Member Name Family Member Gender Family Member Status Date o f Status Description Data Source(s) Unknown Male Problem [facility] ([facility]) Unknown Female Problem [facility] ([facility]) Unknown Female Problem [facility] ([facility]) Unknown Female Problem [facility] ([facility]) Encounters Encounter Providers Location Date Indications Data Source(s ) Outpatient Attender: Kelley EPPS Main Office 05/18/2021 12:15:00 PM EDT [facility] ([facility]) Outpatient Attender: Adis Duncan MD Main Office 04/28/2021 11:15:00 AM EDT [facility] ([facility]) Outpatient Attender: Mary Ford 01:00:00 PM EDT [facility] ([facility] ) OFFICE OUTPATIENT VISIT 15 MINUTES Attender: HEIID ASHBY Phys ical Therapy 02/25/2021 03:30:00 PM EDT [facility] ([facility]) OFFICE OUTPATIENT VISIT 15 MINUTES Attender: HEIDI ASHBY Phys ical Therapy 01/26/2021 03:30:00 PM EDT [facility] ([facility]) Outpatient Attender: Mary Ford 02:30:00 PM EDT MED[facility] ([facility] ) OFFICE OUTPATIENT NEW 30 MINUTES Attender: HEIDI ASHBY Physic al Therapy 12/10/2020 02:30:00 PM EDT [facility] ([facility]) Outpatient Attender: Mary Ford 01:30:00 PM EST MED[facility] ([facility] ) Immunizations Vaccine Date Status Description Data Source(s) Tdap 04/21/2021 01:38:00 PM EDT completed M VALENTÍN ([facility]) COVID-19 VACCINE Moderna 10/02/2020 12:00:00 AM EST completed [employer] Vaccine Series Complete: NOThis Data was Submitted to [facility] Via [employer]. This CVX code allows reporting of a vacc ination when formulation is unknown (for example, when recording a Influenza vaccination when noted on a vaccination card) 05/23/2020 09:09:00 AM EDT completed MEDEN T ([facility]) INFLUENZA VIRUS VACCINE QUADRIVALENT (6 MOS AN D UP) 05/23/2020 12:00:00 AM EDT completed [facility] Medications Medication Brand Name Start Date Product Form Dose Route Admi nistrative Instructions Pharmacy Instructions Status Indications Reaction Description Data Source(s) 240 mcg/0.7 mL 06/12/2021 12:00:00 AM EDT syringe 0 INJECT INTRAMUSCULARLY DIRECTED INJECT INTRAMUSCULARLY DIRECTED SOLD: 06/12/2021 [facility] 1.479-0.188- 0.225 gram 04/28/2021 12:00:00 AM EDT tablet 24 DIRECTED DIRECTED SOLD: 05/05/2021 [facility] Sutab Sutab 04/28/2021 12:00:00 AM EDT active MED[facility] ([facility]) Immunization Adminstration,1 Vaccine/Toxoid 04/21/2021 12:00 :00 AM EDT completed [facility] ([facility]) Medication administered onsite meloxicam 15 MG Oral Tablet Meloxicam 01/26/2021 12:00:00 AM EDT ORAL completed [facility] ([facility]) 15 mg 12/11/2020 12:00:00 AM EDT tablet 30 TAKE ONE TABLET BY MOUTH EVERY DAY AFTER MEALS MAXIMUM DAILY DOSE = 1 TABLET TAKE ONE TABLET BY MOUTH EVERY DAY AFTER MEALS MAXIMUM DAILY DOSE = 1 TABLET SOLD: 12/12/2020 [facility] 15 mg 12/11/2020 12:00:00 AM EDT tablet 30 TAKE ONE TABLET BY MOUTH EVERY DAY AFTER MEALS MAXIMUM DAILY DOSE = 1 TABLET TAKE ONE TABLET BY MOUTH EVERY DAY AFTER MEALS MAXIMUM DAILY DOSE = 1 TABLET SOLD: 01/07/2021 [facility] meloxicam 15 MG Oral Tablet [Mobic] Mobic 12/10/2020 12:00:00 AM EDT ORAL active [facility] ([facility]) . UNIT 05/23/2020 12:00:00 AM EDT Injectable 1 AD MIN FEE ADMIN FEE SOLD: 05/23/2020 [facility] Cephalexin 500 MG Oral Capsule CEPHALEXIN 05/22/2020 12:00:00 AM EDT capsule 28 TAKE ONE CAPSULE BY MOUTH FOUR TIMES A DAY TAKE ONE CA PSULE BY MOUTH FOUR TIMES A DAY SOLD: 05/23/2020 [facility] Insurance Providers Payer name Policy type / Coverage type Policy ID Covered democrat ID Covered democrat's relationship to meier Policy Meier Plan Information [employer] (Old) Commercial [id number] Self [id number] [employer] [id number] SP [id number] [employer] (Old) Medigap Part B [id number] Self [id number] [employer] Ppo Commercial [id number] Self [id number] [employer] Ppo Medigap Part B [id number] Self [id number] Umr [employer] Ppo Commercial [id number] Self [id number] [employer] [id number] SP [id number] Umr (New [employer]) Commercial [id number] Self [id number] ANSI-Medicare Part B [id number] ANSI-Not a Secondary Insurance [id number] ANSI-Commercial [id number] ANSI-Medicare Part B [id number] ANSI-Commercial [id number] ANSI-Not a Secondary Insurance [id number] ANSI-Not a Secondary Insurance [id number] ANSI-Commercial [id number] ANSI-Medicare Part B [id number] Medicare Natl Govt Servic Medicare Primary [id number] Self [id number] Medicare Natl Govt Servic Medicare Primary [id number] Self [id number] Medicare Natl Govt Servic Medicare Primary [id number] Self [id number] Medicare Natl Govt Servic Medicare Primary [id number] Self [id number] Medicare Natl Govt Servic Medicare Primary [id number] Self [id number] Medicare Natl Govt Servic Medicare Primary [id number] Self [id number] Medicare Natl Govt Servic Medicare Primary [id number] Self [id number] Medicare Natl Govt Servic Medicare Primary [id number] Self [id number] Medicare Natl Govt Servic Medicare Primary [id number] Self [id number] Medicare [place] Medicare Primary [id number] Self [id number] [employer] Commercial [id number] Self [id number] Medicare Natl Govt Servic Medicare Primary [id number] Self [id number] Medicare Natl Govt Servic Medicare Primary [id number] Self [employer] PPO O [id number] S [id number] MEDICARE [id number] SP [id number] R [facility] [id number] SP [id number] [facility] [id number] SP [id number] MEDICARE [id number] SP [id number] A Medicare Natl Govt Servic Medicare Primary [id number] Self [id number] ANSI-Medicare Part B [id number] ANSI-Commercial [id number] ANSI-Not a Secondary Insurance [id number] Problems, Conditions, and Diagnoses Code Display Name Description Problem Type Effective Dates Data Source(s) 074999119 Pure hypercholesterolemia Pure hypercholesterolemia Pr oblem 12/10/2020 12:00:00 AM EDT MED[facility] ([facility]) [id number] Essential hypertension Essential hypertension Problem 12/10/2020 12:00:00 AM EDT [facility] ([facility]) [id number] Type 2 diabetes mellitus Type 2 diabetes mellitus Prob chika 12/10/2020 12:00:00 AM EDT [facility] ([facility]) Surgeries/Procedures Procedure Description Date Indications Data Source(s) OFFICE OUTPATIENT VISIT 25 MINUTES 05/18/2021 12:00:00 AM EDT [facility] ([facility]) THERAPEUTIC PX 1/> AREAS EACH 15 MIN EXERCISES 021 12:00:00 AM EDT MED[facility] ([facility]) THERAPEUTIC PX 1/> AREAS EACH 15 MIN EXERCISES 021 12:00:00 AM EDT MED[facility] ([facility]) THERAPEUTIC PX 1/> AREAS EACH 15 MIN EXERCISES 021 12:00:00 AM EDT MED[facility] ([facility]) APPLICATION MODALITY 1/> AREAS HOT/COLD PACKS 05/07/20 21 12:00:00 AM EDT [facility] ([facility]) APPLICATION MODALITY 1/> AREAS HOT/COLD PACKS 05/05/20 21 12:00:00 AM EDT [facility] ([facility]) THERAPEUTIC PX 1/> AREAS EACH 15 MIN EXERCISES 08/31/2 021 12:00:00 AM EDT [facility] ([facility] APPLICATION MODALITY 1/> AREAS HOT/COLD PACKS 04/30/20 21 12:00:00 AM EDT [facility] ([facility] ) THERAPEUTIC PX 1/> AREAS EACH 15 MIN EXERCISES 12:00:00 AM EDT [facility] ([facility] ) APPLICATION MODALITY 1/> AREAS HOT/COLD PACKS 04/28/20 21 12:00:00 AM EDT [facility] ([facility] ) THERAPEUTIC PX 1/> AREAS EACH 15 MIN EXERCISES 12:00:00 AM EDT [facility] ([facility] ) OFFICE OUTPATIENT NEW 30 MINUTES 04/28/2021 12:00:00 A M EDT [facility] ([facility]) THERAPEUTIC PX 1/> AREAS EACH 15 MIN EXERCISES 12:00:00 AM EDT [facility] ([facility] ) PERIODIC PREVENTIVE MED EST PATIENT 65YRS&> 04/21/2021 12:00:00 AM EDT [facility] ([facility]) THERAPEUTIC PX 1/> AREAS EACH 15 MIN EXERCISES 12:00:00 AM EDT [facility] ([facility] ) THERAPEUTIC PX 1/> AREAS EACH 15 MIN EXERCISES 12:00:00 AM EDT [facility] ([facility] ) THERAPEUTIC PX 1/> AREAS EACH 15 MIN EXERCISES 12:00:00 AM EDT [facility] ([facility] ) THERAPEUTIC PX 1/> AREAS EACH 15 MIN EXERCISES 12:00:00 AM EDT [facility] ([facility] ) APPLICATION MODALITY 1/> AREAS HOT/COLD PACKS 04/10/20 12:00:00 AM EDT [facility] ([facility]) THERAPEUTIC PX 1/> AREAS EACH 15 MIN EXERCISES 12:00:00 AM EDT [facility] ([facility]) THERAPEUTIC PX 1/> AREAS EACH 15 MIN EXERCISES 021 12:00:00 AM EDT [facility] ([facility] ) THERAPEUTIC PX 1/> AREAS EACH 15 MIN EXERCISES 12:00:00 AM EDT [facility] ([facility] ) APPLICATION MODALITY 1/> AREAS HOT/COLD PACKS 03/30/20 12:00:00 AM EDT [facility] ([facility] ) THERAPEUTIC PX 1/> AREAS EACH 15 MIN EXERCISES 12:00:00 AM EDT [facility] ([facility] ) THERAPEUTIC PX 1/> AREAS EACH 15 MIN EXERCISES 12:00:00 AM EDT [facility] ([facility] ) THERAPEUTIC PX 1/> AREAS EACH 15 MIN EXERCISES 12:00:00 AM EDT [facility] ([facility] ) THERAPEUTIC PX 1/> AREAS EACH 15 MIN EXERCISES 12:00:00 AM EDT [facility] ([facility] ) THERAPEUTIC PX 1/> AREAS EACH 15 MIN EXERCISES 12:00:00 AM EDT [facility] ([facility] ) OFFICE OUTPATIENT VISIT 15 MINUTES 02/25/2021 12:00:00 AM EDT [facility] ([facility] ) THERAPEUTIC PX 1/> AREAS EACH 15 MIN EXERCISES 12:00:00 AM EDT [facility] ([facility] ) THERAPEUTIC PX 1/> AREAS EACH 15 MIN EXERCISES 12:00:00 AM EDT [facility] ([facility] ) THERAPEUTIC PX 1/> AREAS EACH 15 MIN EXERCISES 12:00:00 AM EDT [facility] ([facility] ) THERAPEUTIC PX 1/> AREAS EACH 15 MIN EXERCISES 12:00:00 AM EDT [facility] ([facility] ) THERAPEUTIC PX 1/> AREAS EACH 15 MIN EXERCISES 12:00:00 AM EDT [facility] ([facility] ) APPLICATION MODALITY 1/> AREAS HOT/COLD PACKS 02/07/20 12:00:00 AM EDT [facility] ([facility] ) THERAPEUTIC PX 1/> AREAS EACH 15 MIN EXERCISES 12:00:00 AM EDT [facility] ([facility] ) THERAPEUTIC PX 1/> AREAS EACH 15 MIN EXERCISES 12:00:00 AM EDT [facility] ([facility] ) THERAPEUTIC PX 1/> AREAS EACH 15 MIN EXERCISES 021 12:00:00 AM EDT [facility] ([facility] ) THERAPEUTIC PX 1/> AREAS EACH 15 MIN EXERCISES 12:00:00 AM EDT [facility] ([facility] ) THERAPEUTIC PX 1/> AREAS EACH 15 MIN EXERCISES 12:00:00 AM EDT [facility] ([facility] ) APPLICATION MODALITY 1/> AREAS HOT/COLD PACKS 01/29/20 12:00:00 AM EDT [facility] ([facility] ) OFFICE OUTPATIENT VISIT 15 MINUTES 01/26/2021 12:00:00 AM EDT [facility] ([facility] ) THERAPEUTIC PX 1/> AREAS EACH 15 MIN EXERCISES 12:00:00 AM EDT [facility] ([facility] ) THERAPEUTIC PX 1/> AREAS EACH 15 MIN EXERCISES 12:00:00 AM EDT [facility] ([facility] ) OFFICE OUTPATIENT VISIT 25 MINUTES 01/22/2021 12:00:00 AM EDT [facility] ([facility]) THERAPEUTIC PX 1/> AREAS EACH 15 MIN EXERCISES 12:00:00 AM EDT [facility] ([facility] ) THERAPEUTIC PX 1/> AREAS EACH 15 MIN EXERCISES 12:00:00 AM EDT [facility] ([facility] ) THERAPEUTIC PX 1/> AREAS EACH 15 MIN EXERCISES 12:00:00 AM EDT [facility] ([facility] ) THERAPEUTIC PX 1/> AREAS EACH 15 MIN EXERCISES 12:00:00 AM EDT [facility] ([facility] ) THERAPEUTIC PX 1/> AREAS EACH 15 MIN EXERCISES 12:00:00 AM EDT [facility] ([facility] ) THERAPEUTIC PX 1/> AREAS EACH 15 MIN EXERCISES 12:00:00 AM EDT [facility] ([facility] ) THERAPEUTIC PX 1/> AREAS EACH 15 MIN EXERCISES 12:00:00 AM EDT [facility] ([facility] ) THERAPEUTIC PX 1/> AREAS EACH 15 MIN EXERCISES 12:00:00 AM EDT [facility] ([facility] ) Physical Therapy Eval - Low Complexity 01/02/2021 12:0 0:00 AM EDT [facility] ([facility] ) X-Ray Humerus Two Views 12/10/2020 12:00:00 AM EDT [facility] ([facility] ) OFFICE OUTPATIENT NEW 30 MINUTES 12/10/2020 12:00:00 A M EDT [facility] ([facility] ) Impacted Cerumen Irrigat/Lavage 10/22/2020 12:00:00 AM EST [facility] ([facility]) Diabetic Retinal Eye Exam 06/07/2020 12:00:00 AM EDT [facility] ([facility]) Results ID Date Data Source [id number] 04/21/2021 09:21:00 AM EDT [facility] ([facility]) Name Value Range Interpretation Code Description Data Paige rce(s) Supporting Document(s) Urine Creatinine 57.4 mg/dL 30.0-125.0 [facility] ([facility]) Microalbumin Urine 3.8 mg/L 1.3-20.0 [facility] ([facility]) Microalb/Creat Ratio 6.6 ug/mg 0.0-30.0 [facility] ([facility]) ID Date Data Source [id number] 04/21/2021 09:21:00 AM EDT [facility] ([facility]) Name Value Range Interpretation Code Description Data Paige rce(s) Supporting Document(s) Urine Color Laboratory test result Abnormal (applies to non-numeric results) [facility] ([facility]) Urine PH 7.5 units 5.0-9.0 [facility] Urine Appearance Laboratory test result [facility] ([facility]) Specific gravity of Urine 1.010 1.005-1.030 ME DENT ([facility]) Urine Leukocytes Laboratory test result [facility] ([facility]) Urine Blood Laboratory test result MEDEN T ([facility]) Urine Protein Laboratory test result 0-0 MED ENT ([facility]) Urine Nitrite Laboratory test result [facility] ([facility]) Glucose [Presence] in Urine Laboratory test result [facility] ([facility]) Urine Ketone Laboratory test result MEDE NT ([facility]) Urine Urobilinogen 0.2 mg/dL 0.2-1.0 [facility] ([facility]) Bilirubin.total [Mass/volume] in Serum or Plasma Laboratory test resu lt [facility] ([facility]) ID Date Data Source [id number] 04/21/2021 09:21:00 AM EDT [facility] ([facility]) Name Value Range Interpretation Code Description Data Paige rce(s) Supporting Document(s) Thyrotropin [Units/volume] in Serum or Plasma by Detec tion limit <= 0.05 mIU/L 1.26 uIU/mL 0.36-3.74 [facility] ([facility] ) ID Date Data Source [id number] 04/21/2021 09:21:00 AM EDT [facility] ([facility]) Name Value Range Interpretation Code Description Data Paige rce(s) Supporting Document(s) Cholesterol [Mass/volume] in Serum or Plasma 139 mg/dL 131-200 [facility] ([facility]) Triglyceride [Mass/volume] in Serum or Plasma 101 mg/dL 30-150 [facility] ([facility]) Cholesterol in LDL [Mass/volume] in Serum or Plasma by calcu lation 68 CALC 50-159 [facility] ([facility]) Cholesterol in HDL [Mass/volume] in Serum or Plasma 51 mg/dL 35-60 [facility] ([facility]) ID Date Data Source [id number] 04/21/2021 09:21:00 AM EDT [facility] ([facility]) Name Value Range Interpretation Code Description Data Paige rce(s) Supporting Document(s) Glucose [Mass/volume] in Serum or Plasma 153 mg/dL 74-99 [facility] ([facility]) 100-125 mg/dL PRE-DIABETES/FASTING >126 mg/dL DIABETES/FASTING Urea nitrogen [Mass/volume] in Serum or Plasma 18 mg/dL 7-18 [facility] ([facility]) Sodium [Moles/volume] in Serum or Plasma 138 meq/L 136-145 [facility] ([facility]) Potassium [Moles/volume] in Serum or Plasma 4.5 meq/L 3.5-5.1 [facility] ([facility]) Creatinine 0.9 mg/dL 0.6-1.3 [facility] ([facility]) Carbon dioxide, total [Moles/volume] in Serum or Plasma 30 meq/L 21 -32 [facility] ([facility]) Chloride [Moles/volume] in Serum or Plasma 101 meq/L 98-107 [facility] ([facility]) Calcium [Mass/volume] in Serum or Plasma 9.7 mg/dL 8.5-10.1 [facility] ([facility]) Total Bilirubin 1.1 mg/dL 0.2-1.0 [facility] ([facility]) Alkaline phosphatase isoenzyme [Units/volume] in Serum or Pl asma 58 mg/dL 46-116 [facility] ([facility]) Alanine aminotransferase [Enzymatic activity/volume] in Seru m or Plasma 31 U/L 12-78 [facility] ([facility]) Aspartate aminotransferase [Enzymatic activity/volume] in Serum or Plasma 14 U/L 15-37 [facility] ([facility] ) Albumin [Mass/volume] in Serum or Plasma 4.1 g/dL 3.4-5.0 [facility] ([facility]) Proteinase 3 Ab [Units/volume] in Serum 6.8 g/dL 6.4-8.2 [facility] ([facility]) A/G Ratio 1.52 CALC 1.00-1.90 [facility] ([facility]) Glomerular filtration rate/1.73 sq M pre dicted among blacks [Volume Rate/Area] in Serum or Plasma by Creatinine-based formula (MDRD) Laboratory test result [facility] <content>CHRONIC KIDNEY DISEASE STAGING PER NKF</content>
<content></content>
<content>STAGE I & II GFR >= 60 NORMAL TO MILDLY DECREASED</content>
<content>STAGE III GFR 30-59 MODERATELY DECREASED</content>
<content>STAGE IV GFR 15-29 SEVERELY DECREASED</content>
<content>STAGE V GFR <15 VERY LITTLE GFR LEFT</content>
<content>ESRD GFR <15 ON HEEL SPLITTER</content>
<content></content> Glomerular filtration rate/1.73 sq M pre dicted among non-blacks [Volume Rate/Area] in Serum or Plasma by Creatinine-based formula (MDRD) Laboratory test result [facility] ([facility] ID Date Data Source [id number] 04/21/2021 09:21:00 AM EDT [facility] ([facility]) Name Value Range Interpretation Code Description Data Paige rce(s) Supporting Document(s) Magnesium 1.8 mg/dL 1.8-2.4 [facility]) ID Date Data Source [id number] 04/21/2021 09:21:00 AM EDT [facility] ([facility]) Name Value Range Interpretation Code Description Data Paige rce(s) Supporting Document(s) Hemoglobin A1c/Hemoglobin.total in Blood 7.1 % [facility] Lab Result Notes: Pre-Diabetes 5.7 - 6.4 % Diabetes = or > 6.5% Glucose mean value [Mass/volume] in Blood Estimated fr om glycated hemoglobin 157 mg/dL 60-110 [facility] ID Date Data Source [id number] 04/21/2021 09:21:00 AM EDT [facility] ([facility]) Name Value Range Interpretation Code Description Data Paige rce(s) Supporting Document(s) Creatine kinase [Enzymatic activity/volume] in Serum or Plasma 40 U /L 26-192 [facility] ID Date Data Source [id number] 04/21/2021 09:21:00 AM EDT [facility] ([facility]) Name Value Range Interpretation Code Description Data Paige rce(s) Supporting Document(s) Leukocytes [#/volume] in Blood by Automated count 6.7 x10*3/UL 4.1-10 .9 [facility] ([facility]) Hemoglobin [Mass/volume] in Blood 13.7 g/dL 12.0-18.0 [facility] Erythrocytes [#/volume] in Blood by Automated count 4.46 x10*6/UL 4.2 0-6.30 [facility] Hematocrit [Volume Fraction] of Blood by Automated count 39.5 % 3 7.0-51.0 [facility] ([facility]) MCV 88.4 fL 80.0-97.0 [facility] ([facility]) MCH 30.7 pg 26.0-32.0 [facility] ([facility]) MCHC 34.7 g/dL 31.0-38.0 [facility] ([facility]) Erythrocyte distribution width [Ratio] by Automated count 12.7 % 11.6-13.7 [facility] ([facility] Platelets [#/volume] in Blood by Automated count 230 x10*3/UL 140-440 [facility] ([facility] MPV 8.9 FL 7.8-11.0 [facility] ([facility]) Lymph % 24.4 % 10.0-58.5 [facility] ([facility]) Mid % 5.8 % 1.7-9.3 [facility] ([facility]) Lymph # 1.6 x10*3/UL 0.6-4.1 [facility] ([facility]) Mid # 0.4 x10*3/UL 0.1-0.6 [facility] ([facility]) Neut % 69.8 % 37.0-92.0 [facility] ([facility]) Neut # 4.7 x10*3/UL 2.0-7.8 [facility] ([facility]) ID Date Data Source [id number] 01/22/2021 02:26:00 PM EDT [facility] Name Value Range Interpretation Code Description Data Paige rce(s) Supporting Document(s) Hemoglobin A1c/Hemoglobin.total in Blood 6.9 % [facility] Lab Result Notes: Pre-Diabetes 5.7 - 6.4 % Diabetes = or > 6.5% Glucose mean value [Mass/volume] in Blood Estimated fr om glycated hemoglobin 151 mg/dL 60-110 [facility] ([facility] ID Date Data Source [id number] 01/22/2021 02:20:00 PM EDT [facility] Name Value Range Interpretation Code Description Data Paige rce(s) Supporting Document(s) Urea nitrogen [Mass/volume] in Serum or Plasma 35 mg/dL 7-18 [facility] ([facility]) Glucose [Mass/volume] in Serum or Plasma 189 mg/dL 74-99 [facility] ([facility]) 100-125 mg/dL PRE-DIABETES/FASTING >126 mg/dL DIABETES/FASTING Creatinine 0.8 mg/dL 0.6-1.3 [facility] ([facility]) Sodium [Moles/volume] in Serum or Plasma 139 meq/L 136-145 [facility] ([facility]) Chloride [Moles/volume] in Serum or Plasma 101 meq/L 98-107 [facility] ([facility]) Potassium [Moles/volume] in Serum or Plasma 4.1 meq/L 3.5-5.1 [facility] ([facility]) Glomerular filtration rate/1.73 sq M pre dicted among non-blacks [Volume Rate/Area] in Serum or Plasma by Creatinine-based formula (MDRD) Laboratory test result [facility] ([facility] ) Carbon dioxide, total [Moles/volume] in Serum or Plasma 30 meq/L 21 -32 [facility] ([facility]) Calcium [Mass/volume] in Serum or Plasma 9.6 mg/dL 8.5-10.1 [facility] ([facility]) Glomerular filtration rate/1.73 sq M pre dicted among blacks [Volume Rate/Area] in Serum or Plasma by Creatinine-based formula (MDRD) Laboratory test result [facility] ([facility]) <content>CHRONIC KIDNEY DISEASE STAGING PER NKF</content>
<content></content>
<content>STAGE I & II GFR >= 60 NORMAL TO MILDLY DECREASED</content>
<content>STAGE III GFR 30-59 MODERATELY DECREASED</content>
<content>STAGE IV GFR 15-29 SEVERELY DECREASED</content>
<content>STAGE V GFR <15 VERY LITTLE GFR LEFT</content>
<content>ESRD GFR <15 ON HEEL SPLITTER</content>
<content></content> ID Date Data Source [id number] 10/22/2020 03:33:00 PM EST [facility] ([facility]) Name Value Range Interpretation Code Description Data Paige e(s) Supporting Document(s) Glucose [Mass/volume] in Serum or Plasma 170 mg/dL 74-99 [facility] ([facility]) 100-125 mg/dL PRE-DIABETES/FASTING >126 mg/dL DIABETES/FASTING Urea nitrogen [Mass/volume] in Serum or Plasma 24 mg/dL 7-18 [facility] ([facility]) Sodium [Moles/volume] in Serum or Plasma 140 meq/L 136-145 [facility] ([facility]) Creatinine 0.9 mg/dL 0.6-1.3 [facility] Potassium [Moles/volume] in Serum or Plasma 4.1 meq/L 3.5-5.1 [facility] ([facility]) Chloride [Moles/volume] in Serum or Plasma 101 meq/L 98-107 [facility] ([facility]) Carbon dioxide, total [Moles/volume] in Serum or Plasma 31 meq/L 21 -32 [facility] Glomerular filtration rate/1.73 sq M pre dicted among blacks [Volume Rate/Area] in Serum or Plasma by Creatinine-based formula (MDRD) Laboratory test result [facility] ([facility]) <content>CHRONIC KIDNEY DISEASE STAGING PER NKF</content>
<content></content>
<content>STAGE I & II GFR >= 60 NORMAL TO MILDLY DECREASED</content>
<content>STAGE III GFR 30-59 MODERATELY DECREASED</content>
<content>STAGE IV GFR 15-29 SEVERELY DECREASED</content>
<content>STAGE V GFR <15 VERY LITTLE GFR LEFT</content>
<content>ESRD GFR <15 ON HEEL SPLITTER</content>
<content></content> Calcium [Mass/volume] in Serum or Plasma 9.6 mg/dL 8.5-10.1 [facility] ([facility]) Glomerular filtration rate/1.73 sq M pre dicted among non-blacks [Volume Rate/Area] in Serum or Plasma by Creatinine-based formula (MDRD) Laboratory test result [facility] ([facility] ) ID Date Data Source [id number] 10/22/2020 03:33:00 PM EST [facility] ([facility]) Name Value Range Interpretation Code Description Data Paige rce(s) Supporting Document(s) Magnesium 1.8 mg/dL 1.8-2.4 [facility]) ID Date Data Source [id number] 10/22/2020 03:33:00 PM EST [facility] ([facility]) Name Value Range Interpretation Code Description Data Paige rce(s) Supporting Document(s) Hemoglobin A1c/Hemoglobin.total in Blood 7.4 % [facility] ([facility]) Lab Result Notes: Pre-Diabetes 5.7 - 6.4 % Diabetes = or > 6.5% Glucose mean value [Mass/volume] in Blood Estimated fr om glycated hemoglobin 166 mg/dL 60-110 [facility] ([facility] ) ID Date Data Source [id number] 10/22/2020 03:33:00 PM EST [facility] ([facility]) Name Value Range Interpretation Code Description Data Paige rce(s) Supporting Document(s) Magnesium, Serum Laboratory test result [facility] ([facility]) Hemoglobin A1c/Hemoglobin.total in Blood Laboratory test result [facility] ([facility]) Procedure Social History No Information Vital Signs ID Date Data Source UNK Name Value Range Interpretation Code Description Data Source(s) Systolic blood pressure 125 mm[Hg] 125 mm[Hg] M EDENT ([facility]) Diastolic blood pressure 69 mm[Hg] 69 mm[Hg] [facility] ([facility]) Body weight 136.00 [lb_av] 136.00 [lb_av] MEDEN T ([facility]) Body height 66 [in_i] 66 [in_i] [facility] ([facility]) 5'6" Body mass index (BMI) [Ratio] 21.9 kg/m2 21.9 k g/m2 [facility] ([facility]) Body height 66 [in_i] 66 [in_i] [facility] ([facility]) 5'6" Body weight 136.00 [lb_av] 136.00 [lb_av] MEDEN T ([facility]) Systolic blood pressure 126 mm[Hg] 126 mm[Hg] M EDENT ([facility]) Diastolic blood pressure 70 mm[Hg] 70 mm[Hg] [facility] ([facility]) Heart rate 72 /min 72 /min [facility] Body mass index (BMI) [Ratio] 21.9 kg/m2 21.9 k g/m2 [facility] ([facility]) Body weight 61.690 kg 61.690 kg [facility] Body temperature 97.3 [degF] 97.3 [degF] [facility] ([facility]) Body weight 136.00 [lb_av] 136.00 [lb_av] MEDEN T ([facility]) Body mass index (BMI) [Ratio] 22.1 kg/m2 22.1 k g/m2 [facility] ([facility]) Systolic blood pressure 122 mm[Hg] 122 mm[Hg] M EDENT ([facility]) RT Arm Diastolic blood pressure 64 mm[Hg] 64 mm[Hg] [facility] ([facility]) RT Arm Heart rate 92 /min 92 /min [facility] ([facility]) Body height 65.75 [in_i] 65.75 [in_i] [facility] 5'5.75" Systolic blood pressure 132 mm[Hg] 132 mm[Hg] M EDENT ([facility]) RT Arm Diastolic blood pressure 64 mm[Hg] 64 mm[Hg] [facility] ([facility]) RT Arm Heart rate 76 /min 76 /min [facility] ([facility]) Body height 65.75 [in_i] 65.75 [in_i] [facility] 5'5.75" Body weight 139.50 [lb_av] 139.50 [lb_av] MEDEN T ([facility]) Body mass index (BMI) [Ratio] 22.7 kg/m2 22.7 k g/m2 [facility] ([facility]) Body height 66 [in_i] 66 [in_i] [facility] ([facility]) 5'6" Body temperature 97.3 [degF] 97.3 [degF] [facility] ([facility]) Body weight 136.00 [lb_av] 136.00 [lb_av] MEDEN T ([facility]) Body mass index (BMI) [Ratio] 21.9 kg/m2 21.9 k g/m2 [facility] ([facility]) Heart rate 76 /min 76 /min MEDPAMELA ([facility]) Systolic blood pressure 146 mm[Hg] 146 mm[Hg] M VALENTÍN ([facility]) RT Arm Diastolic blood pressure 70 mm[Hg] 70 mm[Hg] DONTE ([facility]) RT Arm Body height 65.75 [in_i] 65.75 [in_i] [facility] 5'5.75" Body weight 138.00 [lb_av] 138.00 [lb_av] MEDBEBO T ([facility]) Systolic blood pressure 120 mm[Hg] 120 mm[Hg] M EDENT ([facility]) Diastolic blood pressure 70 mm[Hg] 70 mm[Hg] MEDPAMELA ([facility]) Body mass index (BMI) [Ratio] 22.4 kg/m2 22.4 k g/m2 DONTE ([facility])
[2021-06-24] MEDS ORDERED: propofoL 200 MG/20 ML VIAL As Ordered ONE ×2 (13:22→13:41)
[2021-06-24] MEDS ORDERED: LIDOCAINE 2% 100MG/5ML SDV (FOR ANES.) As Ordered ONE (13:22)
--- NOTE | 2021-06-24 13:50 | ROOR ---
Patient Name: Melonie Powell Procedure Date: 06/24/2021 1:20 PM Date of : 1945 Age: 75 Room: [facility] Gender: Female Note Status: Finalized Procedure: Total Colonoscopy to Cecum + Cold Snare Polypectomy + Hemoclip Indications: High risk colon cancer surveillance: Personal history of colonic polyps, Last colonoscopy: 2017 Providers: Adis Duncan MD Referring MD: Mary HYLTON MD Requesting Provider: Medicines: Monitored Anesthesia Care Complications: No immediate complications. Procedure: Pre-Anesthesia Assessment: - The heart rate, respiratory rate, oxygen saturations, blood pressure, adequacy of pulmonary ventilation, and response to care were monitored throughout the procedure. The Colonoscope was introduced through the anus and advanced to the cecum, identified by appendiceal orifice and ileocecal valve. The colonoscopy was performed without difficulty. The patient tolerated the procedure well. The quality of the bowel preparation was excellent. Findings: The perianal and digital rectal examinations were normal. Non-bleeding internal hemorrhoids were found during retroflexion. The hemorrhoids were small and Grade I (internal hemorrhoids that do not prolapse). Scattered small-mouthed diverticula were found in the recto-sigmoid colon, sigmoid colon and descending colon. A small polyp was found at 30 cm proximal to the anus. The polyp was sessile. The polyp was removed with a cold snare. Resection and retrieval were complete. A medium polyp was found at 60 cm proximal to the anus. The polyp was sessile. The polyp was removed with a cold snare. Resection and retrieval were complete. To prevent bleeding after the polypectomy, one hemostatic clip was successfully placed. There was no bleeding at the end of the procedure. The exam was otherwise without abnormality on direct and retroflexion views. Impression: - Non-bleeding internal hemorrhoids. - Diverticulosis in the recto-sigmoid colon, in the sigmoid colon and in the descending colon. - One small polyp at 30 cm proximal to the anus, removed with a cold snare. Resected and retrieved. - One medium polyp at 60 cm proximal to the anus, removed with a cold snare. Resected and retrieved. Clip was placed. - The examination was otherwise normal on direct and retroflexion views. - The exam was otherwise normal to the cecum. Recommendation: - Patient has a contact number available for emergencies. The signs and symptoms of potential delayed complications were discussed with the patient. Return to normal activities tomorrow. Written discharge instructions were provided to the patient. - High fiber diet. - Discharge patient to home. - Continue present medications. - Await pathology results. - Telephone GI clinic for pathology results in 1 week. - Repeat colonoscopy is not recommended for surveillance. - Return to referring physician. - The findings and recommendations were discussed with the patient. Procedure Code(s): --- Professional --- 01216, Colonoscopy, flexible; with removal of tumor(s), polyp(s), or other lesion(s) by snare technique Diagnosis Code(s): --- Professional --- Z86.010, Personal history of colonic polyps K64.0, First degree hemorrhoids K63.5, Polyp of colon K57.30, Diverticulosis of large intestine without perforation or abscess without bleeding CPT copyright 2019 [employer]. All rights reserved. The codes documented in this report are preliminary and upon water tender review may be revised to meet current compliance requirements. Adis Duncan MD Adis Duncan MD 06/24/2021 1:49:36 PM Electronically signed by Adis Duncan MD Number of Addenda: 0 Note Initiated On: 06/24/2021 1:20 PM Estimated Blood Loss: Estimated blood loss: none.
[2021-06-24 14:10] VITALS: BP 146/63
== END 2021-06-24 14:11 | disposition home or self-care (01) ==
LOC: M OPP 11:34
PROVIDERS: ATTEND Internal Medicine Gastroenterology
DX: Z12.11 Encounter for screening for malignant neoplasm of colon (principal); Z86.010 Personal history of colon polyps; K63.5 Polyp of colon; K57.30 Diverticulosis of large intestine without perforation or abscess without bleeding; K64.0 First degree hemorrhoids; E11.9 Type 2 diabetes mellitus without complications; E03.9 Hypothyroidism, unspecified; Z79.84 Long term (current) use of oral hypoglycemic drugs; Z79.899 Other long term (current) drug therapy

== ENCOUNTER → 2022-05-25 | Outpatient (CLI) | payer MEDICARE, OTHER ==
[~2022-05-25] MED LIST changes: -LISI10TA15 PO; +LISI10TA24 PO; -NS 1,000 ML IV ONE
== END ==
LOC: M WHC 08:08
PROVIDERS: ATTEND Internal Medicine
DX: Z12.31 Encounter for screening mammogram for malignant neoplasm of breast (principal); M89.9 Disorder of bone, unspecified; M85.851 Other specified disorders of bone density and structure, right thigh; M85.852 Other specified disorders of bone density and structure, left thigh

== ENCOUNTER → 2023-05-02 | Outpatient (REF) | payer MEDICARE, OTHER ==
[2023-05-06 18:46] LABS: HEPATITIS C VIRUS ABY INDEX 0.12 INDEX (<0.8)
[2023-05-06 18:47] LABS: HEPATITIS B CORE ANTIBODY IGM NEGATIVE (NEGATIVE)
== END ==
LOC: M LAB REF 16:27
PROVIDERS: ATTEND Internal Medicine
DX: E78.00 Pure hypercholesterolemia, unspecified (principal)

== ENCOUNTER → 2023-05-16 | Outpatient (REF) | payer MEDICARE, OTHER | LOC: M LAB REF 09:50 | PROVIDERS: ATTEND Internal Medicine | DX: R74.01 Elevation of levels of liver transaminase levels (principal) ==

== ENCOUNTER → 2023-05-24 | Outpatient (CLI) | payer MEDICARE, OTHER | LOC: M RAD 08:19 | PROVIDERS: ATTEND Internal Medicine | DX: K76.9 Liver disease, unspecified (principal); K82.8 Other specified diseases of gallbladder ==

== ENCOUNTER → 2023-06-08 | Outpatient (CLI) | payer MEDICARE, OTHER | LOC: M WHC 10:01 | PROVIDERS: ATTEND Internal Medicine | DX: Z12.31 Encounter for screening mammogram for malignant neoplasm of breast (principal) ==

== ENCOUNTER → 2023-06-10 | Outpatient (REF) | payer MEDICARE, OTHER ==
[2023-06-14 17:07] LABS: ALPHA 1 ANTITRYPSIN 127 mg/dL (101-187); ANTINUCLEAR ANTIBODIES DIRECT Negative (Negative)
== END ==
LOC: M LAB REF 16:27
PROVIDERS: ATTEND Internal Medicine
DX: R74.01 Elevation of levels of liver transaminase levels (principal)

== ENCOUNTER → 2023-07-06 | Outpatient (REF) | payer MEDICARE, OTHER ==
[2023-07-06 17:15] LABS: IMMUNOGLOBULIN A 220.7 MG/DL (40-350)
[2023-07-08 17:08] LABS: ANTI-MITOCHONDRIAL ANTIBODY <20.0 Units (0.0-20.0); CERULOPLASMIN 43.8 mg/dL (19.0-39.0); TISSUE TRANSGLUTAMINASE IgA <2 U/mL (0-3)
== END ==
LOC: M LAB REF 16:35
PROVIDERS: ATTEND Internal Medicine
DX: R74.01 Elevation of levels of liver transaminase levels (principal)

== ENCOUNTER → 2023-07-26 | Outpatient (REF) | payer MEDICARE, OTHER | LOC: M LAB REF 16:23 | PROVIDERS: ATTEND Internal Medicine | DX: R74.01 Elevation of levels of liver transaminase levels (principal) ==

== ENCOUNTER → 2023-08-25 | Outpatient (REF) | payer MEDICARE, OTHER | LOC: M LAB REF 12:28 | PROVIDERS: ATTEND Internal Medicine | DX: R74.01 Elevation of levels of liver transaminase levels (principal) ==

== ENCOUNTER → 2023-10-21 | Outpatient (REF) | payer MEDICARE, OTHER | LOC: M LAB REF 17:33 | PROVIDERS: ATTEND Internal Medicine | DX: R74.01 Elevation of levels of liver transaminase levels (principal) ==

== ENCOUNTER → 2023-10-31 | Outpatient (REF) | payer MEDICARE, OTHER | LOC: M LAB REF 13:41 | PROVIDERS: ATTEND Internal Medicine | DX: R74.01 Elevation of levels of liver transaminase levels (principal) ==

== ENCOUNTER → 2023-11-14 | Outpatient (REF) | payer MEDICARE, OTHER | LOC: M LAB REF 12:10 | PROVIDERS: ATTEND Internal Medicine | DX: R74.01 Elevation of levels of liver transaminase levels (principal) ==

== ENCOUNTER → 2023-11-28 | Outpatient (REF) | payer MEDICARE, OTHER | LOC: M LAB REF 11:33 | PROVIDERS: ATTEND Internal Medicine | DX: R74.01 Elevation of levels of liver transaminase levels (principal) ==

== ENCOUNTER → 2024-01-02 | Outpatient (REF) | payer MEDICARE, OTHER | LOC: M LAB REF 12:14 | PROVIDERS: ATTEND Internal Medicine | DX: R74.01 Elevation of levels of liver transaminase levels (principal); R94.5 Abnormal results of liver function studies ==

== ENCOUNTER → 2024-01-31 | Outpatient (REF) | payer MEDICARE, OTHER | LOC: M LAB REF 12:50 | PROVIDERS: ATTEND Internal Medicine | DX: R74.01 Elevation of levels of liver transaminase levels (principal) ==

== ENCOUNTER → 2024-03-14 | Outpatient (REF) | payer MEDICARE, OTHER | LOC: M LAB REF 11:56 | PROVIDERS: ATTEND Internal Medicine | DX: R74.01 Elevation of levels of liver transaminase levels (principal) ==

== ENCOUNTER → 2024-03-15 | Outpatient (REF) | payer MEDICARE, OTHER | LOC: M LAB REF 12:17 | PROVIDERS: ATTEND Internal Medicine | DX: N39.0 Urinary tract infection, site not specified (principal) ==

== ENCOUNTER → 2024-04-16 | Outpatient (REF) | payer MEDICARE, OTHER | LOC: M LAB REF 12:39 | PROVIDERS: ATTEND Internal Medicine | DX: R74.01 Elevation of levels of liver transaminase levels (principal) ==

== ENCOUNTER → 2024-05-16 | Outpatient (REF) | payer MEDICARE, OTHER | LOC: M LAB REF 12:50 | PROVIDERS: ATTEND Internal Medicine | DX: R74.01 Elevation of levels of liver transaminase levels (principal) ==

== ENCOUNTER → 2024-06-14 | Outpatient (CLI) | payer MEDICARE, OTHER | LOC: M WHC 12:51 | PROVIDERS: ATTEND Internal Medicine | DX: Z12.31 Encounter for screening mammogram for malignant neoplasm of breast (principal); R92.313 Mammographic fatty tissue density, bilateral breasts; M89.9 Disorder of bone, unspecified; M85.851 Other specified disorders of bone density and structure, right thigh; M85.852 Other specified disorders of bone density and structure, left thigh; M85.88 Other specified disorders of bone density and structure, other site ==

== ENCOUNTER → 2024-06-25 | Outpatient (REF) | payer MEDICARE, OTHER | LOC: M LAB REF 16:21 | PROVIDERS: ATTEND Internal Medicine | DX: R74.01 Elevation of levels of liver transaminase levels (principal) ==

== ENCOUNTER → 2024-09-18 | Outpatient (REF) | payer MEDICARE, OTHER | LOC: M LAB REF 12:13 | PROVIDERS: ATTEND Internal Medicine | DX: R74.01 Elevation of levels of liver transaminase levels (principal) ==

== ENCOUNTER → 2024-12-27 | Outpatient (REF) | payer MEDICARE, OTHER | LOC: M LAB REF 11:49 | PROVIDERS: ATTEND Internal Medicine | DX: R74.01 Elevation of levels of liver transaminase levels (principal) ==

== ENCOUNTER → 2025-05-16 | Outpatient (REF) | payer MEDICARE, OTHER | LOC: M LAB REF 12:09 | PROVIDERS: ATTEND Internal Medicine | DX: R74.01 Elevation of levels of liver transaminase levels (principal) ==

== ENCOUNTER → 2025-06-17 | Outpatient (CLI) | payer MEDICARE, OTHER | LOC: M WHC 13:00 | PROVIDERS: ATTEND Internal Medicine | DX: Z12.31 Encounter for screening mammogram for malignant neoplasm of breast (principal); R92.313 Mammographic fatty tissue density, bilateral breasts ==

== ENCOUNTER → 2025-08-13 | Outpatient (REF) | payer MEDICARE, OTHER | LOC: M LAB REF 12:42 | PROVIDERS: ATTEND Internal Medicine | DX: R74.01 Elevation of levels of liver transaminase levels (principal) ==